=== PATIENT | male | born 1950 | race Caucasian/White ===

== ENCOUNTER 2017-11-04 19:35 | Emergency (ER) | payer OTHER, MEDICARE, SELFPAY ==
[2017-11-04 19:37] VITALS: BP 157/90; PULSE 64; RESP 16; TEMP 36.9; O2SAT 96; BMI 37.5
[2017-11-04] MEDS: oxyCODONE 5 MG Tablet 10 MG PO (20:38)
--- NOTE | 2017-11-04 20:50 | RAD_ITS ---
STUDY: X-RAY - RIGHT HAND REASON FOR EXAM: Male, 67 years old. Right thumb pain. TECHNIQUE: 3 view(s) of the hand. COMPARISON: None. FINDINGS: There is joint space narrowing of the radiocarpal articulation consistent with degenerative arthrosis. Normal distal radioulnar joint. Normal visualized carpal bones. Normal carpal articulations Normal carpometacarpal articulation of the thumb. Normal second through fifth carpometacarpal joints. Normal metacarpi. There is degenerative arthrosis of the metacarpophalangeal (MCP) joints. There is degenerative arthrosis of the interphalangeal joint of the thumb with articular joint space narrowing. Normal proximal and distal phalanges of the thumb. Normal metacarpophalangeal joints of the second through fifth fingers. There is mild articular joint space narrowing of the proximal and distal interphalangeal joints of the second through fifth fingers, but without erosive changes or periarticular soft tissue swelling. Normal phalanges of the second through fifth fingers. There is soft tissue swelling of the thumb. RAD/Hand Min 3 Views IMPRESSION: Degenerative joint disease of the hand and wrist, as described above. Electronically Signed: Otilia Adamson MD at 21:53 EDT Tel , Service support ,
[2017-11-04 21:12] LABS: Absolute Lymphocyte Count 2.63 X10^3/ul (0.83-4.51); Absolute Neutrophil Count 2.9 X10^3/uL (2.0-7.7); Basophil# 0.03 X10^3/uL; Basophil% 0.5 % (0-1); Eosinophil# 0.18 X10^3/uL; Eosinophils% 2.8 % (0-5); Hematocrit 44.3 % (40-54); Hemoglobin 14.9 g/dl (13.0-16.5); Lymphocyte # 2.63 X10^3/ul (4.0); Lymphocyte % 41.4 % (19-41); Mean Corp Hgb Conc 33.6 g/gl (32-36); Mean Corpuscular Hgb 29.2 pg (27.0-32.0); Mean Corpuscular Volume 86.9 fL (80-94); Mean Platelet Vol. 11.2 fl (6.2-12.0); Monocyte# 0.64 X10^3/uL; Monocyte% 10.1 % (0-10); Neutrophil # 2.88 X10^3/uL (2.7-7.7); Neutrophil % 45.2 % (47-70); Platelet Count 172 K/mm3 (150-450); RBC Distribution Width CV 12.8 % (11.6-14.6); RBC Distribution Width SD 41.2 fl (35.1-43.9); White Blood Count 6.4 K/mm3 (4.4-11.0)
[2017-11-04 21:17] LABS: POSITIVE COUNT NO; POSITIVE DIFFERENTIAL NO; POSITIVE MORPHOLOGY NO
[2017-11-04 21:31] LABS: Anion Gap 8 (5-15); BUN 19 mg/dL (7-18); BUN/Creat Ratio 21.1 RATIO (10-20); Calcium,Total 8.6 mg/dL (8.5-10.1); Chloride 110 mmol/L (98-107); EST Glomerular Filtration Rate 89 mL/min (>60); Est Glom Filt Rate - Afr Amer 108 mL/min (>60); Estimated Creatinine Clearance 79.65 ml/min; Glucose 98 mg/dL (74-106); Potassium 4.2 mmol/L (3.5-5.1); Sodium Level 141 mmol/L (136-145)
--- NOTE | 2017-11-04 22:16 | ED.DCSUM_ITS ---
- ER Visit Summary Date of Service: 11/04/17 Chief Complaint: [] Right thumb History of Present Illness: The patient is a 67 M [] complaining of significant right thumb pain and swelling. He reports he was recently diagnosed with a right ingrown thumbnail. He does have a abnormal morphology to his thumbs bilaterally with the nailbed pointing in a more up-and-down orientation than horizontal. He reports he was recently seen the [place] emergency department where they took a small corner of the nail off and placed him on Keflex for approximately 10 days. He reports this did not improve his symptoms at all and he is here with further discomfort. He denies fevers. Denies any obvious injury or break in the skin. Denies any discharge from the wound. No other complaints at this time. Physical Examination: [] Afebrile, vital signs stable. Slight swelling to the lateral aspect of the right nailbed without fluctuance. This may represent an early paronychia however the morphology of the thumb is abnormal. Patient is neurovascularly intact distally. He is able to flex at the DIP joint. There is no erythema or rash to the affected area. Remainder of exam is unremarkable. Test Results: [] ESR is pending at the time of this dictation. CBC and BMP are normal. X-rays of the hand with attention to the thumb show osteoarthritis without obvious pathology. Emergency Department Course and Treatment: [] Patient had the area evaluated. I did not feel that he was a good candidate for incision and drainage and nailbed repair in the emergency department. I discussed this extensively with him and his at the bedside. They are amenable to discharge on antibiotics, narcotic analgesia, referral to plastic surgery/hand specialist for definitive care. Provided with prescriptions for Bactrim DS, Keflex, oxycodone. Treatment Plan: [] Follow-up with local plastic surgeon/hand specialist. Disposition: [] Discharge, stable. Impression: [] Right thumb paronychia osteoarthritis This note was generated with [employer] dictation software. It may contain incorrect words, spelling, and punctuation that were not noted in review of the chart prior to signing ED Disposition - Plan for ED Patient: Disposition: Home or Assisted Living Chief Complaint: Wound Instructions: ED Fingernail Infec Prescriptions: Oxycodone [Oxyfast] 10 mg PO Q4H PRN PRN 5 Days #20 ml PRN Reason: Pain Sulfamethoxazole/Trimethoprim [Bactrim Ds Tablet] 1 ea PO BID #20 tab Cephalexin [Keflex] 500 mg PO 4X/DAY #40 cap Referrals: [facility] Doctor,Out of [Primary Care Provider] -
--- NOTE | 2017-11-04 22:20 | DCINST.ED_ITS ---
ED Disposition - Plan for ED Patient: Disposition: Home or Assisted Living Chief Complaint: Wound Instructions: ED Fingernail Infec Prescriptions: Oxycodone [Oxyfast] 10 mg PO Q4H PRN PRN 5 Days #20 ml PRN Reason: Pain Sulfamethoxazole/Trimethoprim [Bactrim Ds Tablet] 1 ea PO BID #20 tab Cephalexin [Keflex] 500 mg PO 4X/DAY #40 cap Referrals: [facility] Doctor,Out of [Primary Care Provider] -
[2017-11-04 22:41] VITALS: BP 165/118; PULSE 57; RESP 18; O2SAT 96
[2017-11-04 22:42] VITALS: BP 184/96
[2017-11-05 00:01] LABS: Erythrocyte Sedimentation Rate 4 mm/hr (0-20)
== END 2017-11-04 22:42 | disposition home or self-care (01) ==
PROVIDERS: Emergency Provider Emergency Medicine
DX: L03.011 Cellulitis of right finger (principal); M19.041 Primary osteoarthritis, right hand
CPT/HCPCS: 36415; 73130; 80048; 85025; 85652; 99283

== ENCOUNTER 2017-11-05 12:01 | Emergency (ER) | payer OTHER, MEDICARE, SELFPAY ==
[2017-11-05 12:02] VITALS: BP 186/91; PULSE 65; RESP 18; TEMP 36.6; O2SAT 98; BMI 36.9
[2017-11-05 12:21] VITALS: BP 193/88; PULSE 71; RESP 19; O2SAT 97
--- NOTE | 2017-11-05 12:34 | EKG12_ITS ---
Test Reason : CP Blood Pressure : / mmHG Vent. Rate : 069 BPM Atrial Rate : 069 BPM P-R Int : 172 ms QRS Dur : 096 ms QT Int : 420 ms P-R-T Axes : 011 -01 038 degrees QTc Int : 450 ms Normal sinus rhythm Normal ECG Confirmed by JERONIMO CAPONE MD ([id number]), brands editor TOYA SAAB ([id number]) on 11/07/2017 1:29:00 PM Referred By: Confirmed By:JERONIMO CAPONE MD
--- NOTE | 2017-11-05 12:54 | RAD_ITS ---
STUDY: X-RAY CHEST REASON FOR EXAM: Male, 67 years old. Chest pain TECHNIQUE: Portable frontal COMPARISON: None. FINDINGS: The lungs are clear and expanded. There is no demonstrated pleural abnormality. Normal size heart. Normal mediastinum and jorge. Normal visualized pulmonary arteries. Normal visualized aortic arch and descending thoracic aorta. Normal visualized thoracic spine. Normal visualized ribs, clavicles, and shoulders. There is no demonstrated abnormality of the visualized soft tissue structures of the upper abdomen. RAD/Chest 1 View (Portable) IMPRESSION: No acute cardiopulmonary process. Electronically Signed: Otilia Adamson MD at 13:09 EDT Tel , Service support ,
[2017-11-05] MEDS: Aspirin 81 MG TAB.CHEW 324 MG PO (12:59)
[2017-11-05] MEDS: 0.9% Normal Saline 1,000 ML 150 ML IV (12:59)
[2017-11-05 13:00] VITALS: O2SAT 98
[2017-11-05 13:00] LABS: Absolute Neutrophil Count 2.1 X10^3/uL (2.0-7.7); Basophil# 0.03 X10^3/uL; Basophil% 0.6 % (0-1); Eosinophil# 0.14 X10^3/uL; Eosinophils% 2.9 % (0-5); Hematocrit 46.4 % (40-54); Hemoglobin 15.6 g/dl (13.0-16.5); Lymphocyte % 45.3 % (19-41); Mean Corp Hgb Conc 33.6 g/gl (32-36); Mean Corpuscular Hgb 29.4 pg (27.0-32.0); Mean Corpuscular Volume 87.4 fL (80-94); Mean Platelet Vol. 11.4 fl (6.2-12.0); Monocyte# 0.44 X10^3/uL; Monocyte% 9.1 % (0-10); Neutrophil # 2.05 X10^3/uL (2.7-7.7); Neutrophil % 42.1 % (47-70); Platelet Count 179 K/mm3 (150-450); RBC Distribution Width CV 12.9 % (11.6-14.6); RBC Distribution Width SD 41.2 fl (35.1-43.9); Red Blood Count 5.31 M/mm3 (4.6-6.2); White Blood Count 4.9 K/mm3 (4.4-11.0)
[2017-11-05 13:07] LABS: POSITIVE COUNT NO; POSITIVE DIFFERENTIAL NO; POSITIVE MORPHOLOGY NO
[2017-11-05 13:20] LABS: AST(SGOT) 22 U/L (15-37); Alanine Aminotransfer ALT/SGPT 53 U/L (16-61); Albumin, Serum 4.2 g/dL (3.2-5.0); Alkaline Phosphatase 74 U/L (45-117); Bilirubin, Direct 0.14 mg/dL (0.00-0.30); Globulin 3.3 g/dL (2.2-4.2); Protein, Total 7.5 g/dL (6.4-8.2)
--- NOTE | 2017-11-05 13:20 | ED.DCSUM_ITS ---
- ER Visit Summary Date of Service: 11/05/17 Chief Complaint: [] Needs a different prescription for pain management History of Present Illness: The patient is a 67 M [] for over a month he has had a problem with his right thumb he was seen at multiple facilities referred to hand service he has not followed up yet he was seen yesterday in the emergency department at [facility] for the same refer to Dr. Greene indicates he has had x-rays of the hand has been on antibiotics he was given a prescription for liquid pain medicine pharmacy did not have that so was sent back to the emergency department a different prescription when he presented to triage he complained to the nurses that his blood pressure was elevated he went to be seen for that as well he has had no fever no cough he does complain that the pain to the thumb is quite bothersome to him he indicates he does not know why he has the thumb pain he did not suffer any direct trauma he is concerned that he may have had an ingrown nail the because all the above Does not have any history of, hypertension, SD PE DVT cardiovascular disorders is eating and drinking well, his chief complaint is still his thumb 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 The IP joint flexion is normal MCP joint flexion is normal hand function is normal wrist function is normal Test Results: [] Emergency Department Course and Treatment: [] His complaints is blood pressure is elevated etc. screening labs are obtained did in fact have an x-ray yesterday of the right hand that showed DJD his screening labs are all unremarkable as is the chest x-rays EKG shows a sinus rhythm nothing acute the patient's blood pressure is 160/80 on reevaluation he feels completely back to baseline he has no symptoms of any kind the thumb pain is actually markedly improved as well he feels well wants to go home, again he will follow-up Dr. dwyer B he is currently on antibiotic we will make sure he gets the oral pill form of the Percocet will return for change in symptoms he does understand the concept that he may in fact have hypertension is difficult to assess through visit to the emergency department when he is actively having pain and he should follow-up his family doctor for the hypertension as well he will do so Treatment Plan: [] Disposition: [] Home stable Impression: [] Recurrent right thumb pain etiology unclear, hypertension improved This note was generated with [employer] dictation software. It may contain incorrect words, spelling, and punctuation that were not noted in review of the chart prior to signing ED Disposition - Plan for ED Patient: Chief Complaint: Other, Pain/Inj Referrals: Care Physician,No Primary [Primary Care Provider] -
[2017-11-05 13:23] LABS: Anion Gap 7 (5-15); BUN 18 mg/dL (7-18); BUN/Creat Ratio 17.5 RATIO (10-20); Calcium,Total 8.9 mg/dL (8.5-10.1); Chloride 107 mmol/L (98-107); Creatinine, Serum 1.03 mg/dL (0.70-1.30); EST Glomerular Filtration Rate 77 mL/min (>60); Est Glom Filt Rate - Afr Amer 93 mL/min (>60); Estimated Creatinine Clearance 69.59 ml/min; Glucose 107 mg/dL (74-106); Lipase 103 U/L (73-393); Sodium Level 141 mmol/L (136-145)
[2017-11-05] MEDS: Ondansetron 4 MG/2 ML Vial IV (13:35)
[2017-11-05] MEDS: morphine 8 MG/ML Syringe IV (13:35)
--- NOTE | 2017-11-05 14:29 | ED.DEP ---
ED Disposition - Plan for ED Patient: Chief Complaint: Other, Pain/Inj Prescriptions: Oxycodone HCl/Acetaminophen [Percocet 5/325] 1 tab PO Q6H PRN PRN 3 Days #12 tab PRN Reason: Pain Referrals: Care Physician,No Primary [Primary Care Provider] -
--- NOTE | 2017-11-05 14:31 | ED.DEP ---
ED Disposition - Plan for ED Patient: Chief Complaint: Other, Pain/Inj Instructions: ED Hypertension New Begin Tx Prescriptions: Oxycodone HCl/Acetaminophen [Percocet 5/325] 1 tab PO Q6H PRN PRN 3 Days #12 tab PRN Reason: Pain Referrals: Care Physician,No Primary [Primary Care Provider] - Nathan Rodriguez DO [NON CLINICAL AFFILIATE] -
[2017-11-05 14:41] VITALS: BP 141/74; PULSE 56; RESP 12; O2SAT 95
== END 2017-11-05 15:07 | disposition home or self-care (01) ==
PROVIDERS: Emergency Provider Emergency Medicine
DX: M25.541 Pain in joints of right hand (principal); I10 Essential (primary) hypertension; M19.041 Primary osteoarthritis, right hand; Z79.899 Other long term (current) drug therapy
CPT/HCPCS: 71045; 80048; 80076; 83690; 84484; 85025; 93005; 96361; 96374; 96375; 99284; J7030; A4216; J2405

== ENCOUNTER 2018-09-03 09:06 | Day surgery (SDC) | payer OTHER, MEDICARE, SELFPAY ==
[2018-07-09 10:01] VITALS: BMI 36.9
[2018-08-27 09:48] VITALS: BMI 36.9
[2018-09-03 09:25] VITALS: BP 150/63; PULSE 58; RESP 16; TEMP 36.4; O2SAT 96; BMI 37.0
--- NOTE | 2018-09-03 10:10 | PCM.HP.BLA ---
Problem List (1) Abdominal discomfort, generalized Status: Acute History and Physical Date of Admission: 09/03/18 Intake Visit Reasons: needs cscope, poss egd - nausea, abd pain Chief Complaint: stomach issues worsening for 2 wks. Is patient in pain?: No Allergies No Known Allergies Allergy (Verified 07/09/18 09:59) Medications Aleve 440 mg PO BID 11/04/17 [History Confirmed 07/09/18] Desmopressin Acetate [Ddavp] 0.1 mg PO BID 11/04/17 [History Confirmed 07/09/18] Levothyroxine [Synthroid] 137 mcg PO DAILY 11/04/17 [History Confirmed 07/09/18] Testosterone [Androgel] 5 gm TD DAILY 11/04/17 [History Confirmed 07/09/18] amlodipine 10 mg tablet 5 mg PO DAILY #30 tab 07/03/18 [Rx Confirmed 07/09/18] gabapentin ER 600 mg tablet,extended release 24 hr 600 mg PO TID PRN tab 07/03/18 [History Confirmed 07/09/18] naproxen 250 mg tablet 250 mg PO BID-TID PRN 07/03/18 [History Confirmed 07/09/18] omeprazole 20 mg tablet,delayed release 20 mg PO DAILY #60 tab 07/09/18 [Rx Confirmed 07/09/18] PFSH Medical History Chronic pain (Chronic) Hypothyroidism (Acute) Surgical History History of back surgery (Acute) History of cranial surgery (Acute) History of knee replacement (Acute) History of orthopedic surgery (Acute) History of shoulder surgery (Acute) history of skin graph (Acute) Family History Father Heart disease Mother Diabetes Brother Diabetes Social History Smoking Status: Never smoker alcohol intake: current alcohol intake frequency: holidays/special occasions only substance use type: does not use what type of physical activity do you participate in: none HPI HPI HPI: SUNITA TOTH, is a 67 M who presents to the office today for nausea and screening colonoscopy. The patient reports he has had over 3 weeks of nausea and he does sometimes complain of left upper quadrant pain. He is on chronic ibuprofen with no PPI. The patient also reports he is due for screening colonoscopy. The patient has never had a colonoscopy in the past. He denies any blood in his stool or inadvertent weight loss. He has no family history of colon cancer. ROS General General: No weight change, appetite, fatigue, colon cancer, breast cancer or weakness HEENT HEENT: No difficulty swallowing, eye injury, eye surgery, swollen glands or hoarseness Endo Endocrine: No thyroid disease, diabetes mellitus, thyroid cancer, Hair loss, heat intolerance or cold intolerance Skin Skin: No rash or changing moles Breast Breast: No left breast lump, right breast lump, nipple discharge, breast pain, abnormal mammogram, abnormal US or breast enlargement Musc Musculoskeletal: Yes back problems; no arthritis, rheumatoid arthritis, gout or joint pain Cardio Cardiovascular: Yes high blood pressure; no murmur, pacemaker, heart disease, atrial fibrillation, heart attack, heart stent, palpitations, shortness of breat with exertion or chest pain Psych Psychiatric: No depression, anxiety or hearing voices Resp Respiratory: No shortness of breath, No sleep apnea, No cough, No COPD, No asthma, No emphysema, No wheezing Gastro Gastrointestinal: Yes nausea or vomiting, Yes abdominal pain, No diarrhea, No constipation, No blood in stool, No acid reflux, No hemorrhoids, No ulcers, No gallbladder problem, No black,tarry stools Francisco Hematologic: No blood thinners, No blood disorders, No bleeding, No anemia, No blood clots Neuro Neurologic: Yes tingling, Yes numbness, No system reviewed and no additional complaints, except as docu, No as per HPI, No abnormal walking, No abnormal hearing, No abnormal movements, No abnormal speech, No behavioral changes, No burning sensations, No confusion, No seizure-like activity, No unsteadiness, No dizziness, No localized weakness, No frequent falls, No headache(s), No lack of coordination, No loss of vision, No memory loss, No other visual disturbances, No radiating pain, No restless legs, No sensory deficit, No fainting, No tremor(s), No weakness, No other Exam Const General: cooperative Orientation: alert, oriented x3 Chest Breast Palpation: No nipple discharge Resp Effort & Inspection: normal respiratory effort Auscultation: clear to auscultation bilaterally Cardio Rate: regular rate Rhythm: regular rhythm Heart Sounds: no murmurs GI Inspection: non-distended Palpation: soft, nontender Assessment & Plan Problems 1. Screen for colon cancer Z12.11 2. Left upper quadrant pain R10.12 Plan The patient is due for screening colonoscopy. The patient is also having nausea and left upper quadrant pain. This is possibly due to gastritis. I will start him on a PPI and perform an EGD at the same time as colonoscopy. I explained endoscopy in detail to the patient. I explained the risks including but not limited to stroke or heart attack with anesthesia, perforation of the GI tract, bleeding, infection. I explained that any of these could necessitate further emergency surgery. The patient understands and all questions were answered sufficiently. The patient wishes to proceed with procedure. Shar Jamse MD Pager: [place] [phone] Office: Addendum I saw the patient today and nothing is changed since his last visit. Plan for screening colonoscopy and EGD for epigastric pain. Patient reports that his epigastric pain has improved slightly with PPIs. Shar James MD Pager: [place] [phone] Office:
--- NOTE | 2018-09-03 11:34 | OP.ENDO_ITS ---
09/03/2018 Fay Chaney MD [address] [place] [address] [place] [address] Re : Upper GI endoscopy procedure for Huber Booker Dear Dr. Chaney This procedure was performed on Monday, September 03, 2018. My impressions and recommendations are as follows: Impressions : - Normal esophagus. - Normal stomach. - Normal examined duodenum. - No specimens collected. Recommendations : - Discharge patient to home. - Resume previous diet. - Continue present medications. My findings are described in the full procedure note, which is enclosed. If I can be of further assistance, please feel free to contact me at Doctor phone number(s): , Work: . Sincerely, Shar James MD 09/03/2018 11:34:09 AM This report has been signed electronically.
--- NOTE | 2018-09-03 11:35 | OP.ENDO_ITS ---
09/03/2018 Fay Chaney MD [address] [place] [address] [place] [address] Re : Colonoscopy procedure for Huber Booker Dear Dr. Chaney This procedure was performed on Monday, September 03, 2018. My impressions and recommendations are as follows: Impressions : - The entire examined colon is normal on direct and retroflexion views. - No specimens collected. Recommendations : - Discharge patient to home. - Resume previous diet. - Continue present medications. - Repeat colonoscopy in 10 years for screening purposes. My findings are described in the full procedure note, which is enclosed. If I can be of further assistance, please feel free to contact me at Doctor phone number(s): , Work: . Sincerely, Shar James MD 09/03/2018 11:35:23 AM This report has been signed electronically.
[2018-09-03 11:36] VITALS: BP 117/58; BP 150/63; PULSE 59; RESP 16; TEMP 36.3; O2SAT 98
[2018-09-03 11:41] VITALS: BP 117/63; BP 150/63; PULSE 61; RESP 16; O2SAT 99
[2018-09-03 11:46] VITALS: BP 121/66; BP 150/63; PULSE 58; RESP 16; O2SAT 96
[2018-09-03 11:51] VITALS: BP 125/67; BP 150/63; PULSE 57; RESP 16; TEMP 36.3; O2SAT 100
[2018-09-03 12:05] VITALS: BP 150/63
== END 2018-09-03 12:12 | disposition home or self-care (01) ==
LOC: EN 09:07 → AC 09:09
PROVIDERS: Family Provider Internal Medicine; PCP Internal Medicine; Referring Provider Surgery; Visit Provider Surgery
PROC: 0DJD8ZZ Inspection of Lower Intestinal Tract, Via Natural or Artificial Opening Endoscopic (ICD-10-PCS; CPT 45378; principal; 2018-09-03 10:55)
DX: Z12.11 Encounter for screening for malignant neoplasm of colon (principal); R10.13 Epigastric pain; G89.29 Other chronic pain; E03.9 Hypothyroidism, unspecified; Z79.899 Other long term (current) drug therapy
CPT/HCPCS: 43235; 45378; J7120

== ENCOUNTER 2018-09-21 09:30 | Outpatient (RCR) | payer OTHER, MEDICARE, SELFPAY | END 2018-09-23 23:59 | disposition home or self-care (01) | LOC: NS 09:30 | PROVIDERS: Family Provider Internal Medicine; PCP Internal Medicine; Visit Provider Internal Medicine | DX: E66.9 Obesity, unspecified (principal); Z68.36 Body mass index [BMI] 36.0-36.9, adult; Z71.3 Dietary counseling and surveillance | CPT/HCPCS: 97802; 97803 ==

== ENCOUNTER → 2018-10-17 | Outpatient (CLI) | payer OTHER, MEDICARE, SELFPAY ==
[2018-10-17 10:29] VITALS: BMI 35.2
--- NOTE | 2018-10-17 11:20 | RAD_ITS ---
STUDY: X-RAY - RIGHT SHOULDER REASON FOR EXAM: Pain for 2 weeks status post golfing. TECHNIQUE: 4 view(s) of the shoulder. COMPARISON: None. FINDINGS: Normal glenohumeral articulation. There is mild acromioclavicular arthrosis. Normal acromion. Normal humeral head and visualized proximal humerus. There is a possible intra-articular body in the bicipital tendon sheath. Normal visualized pulmonary apex. RAD/Shoulder min 2 Views IMPRESSION: Mild acromioclavicular arthrosis. Possible intra-articular body in the bicipital tendon sheath. Electronically Signed: Velasquez Gamble MD at 12:50 EDT Tel , Service support ,
== END | disposition home or self-care (01) ==
PROVIDERS: Family Provider Internal Medicine; PCP Internal Medicine; Referring Provider Nurse Practitioner Family; Visit Provider Nurse Practitioner Family
DX: M75.81 Other shoulder lesions, right shoulder (principal)
CPT/HCPCS: 73030

== ENCOUNTER 2018-10-19 10:00 | Outpatient (RCR) | payer OTHER, MEDICARE, SELFPAY | END 2018-10-23 23:59 | LOC: NS 10:00 | PROVIDERS: Family Provider Internal Medicine; PCP Internal Medicine; Visit Provider Internal Medicine | DX: E66.9 Obesity, unspecified (principal); Z68.36 Body mass index [BMI] 36.0-36.9, adult; Z71.3 Dietary counseling and surveillance | CPT/HCPCS: 97803 ==

== ENCOUNTER 2018-11-09 09:33 | Outpatient (RCR) | payer OTHER, MEDICARE, SELFPAY ==
[2018-10-24 01:34] VITALS: BMI 37.0
== END 2018-11-23 23:59 ==
LOC: NS 09:33
PROVIDERS: Family Provider Internal Medicine; PCP Internal Medicine; Visit Provider Internal Medicine
DX: E66.9 Obesity, unspecified (principal); Z68.36 Body mass index [BMI] 36.0-36.9, adult; Z71.3 Dietary counseling and surveillance
CPT/HCPCS: 97803

== ENCOUNTER 2018-12-07 10:04 | Outpatient (RCR) | payer OTHER, MEDICARE, SELFPAY ==
[2018-10-24 01:34] VITALS: BMI 37.0
[2018-12-03 10:42] VITALS: BMI 37.0
== END 2018-12-23 23:59 ==
LOC: NS 10:04
PROVIDERS: Family Provider Internal Medicine; PCP Internal Medicine; Visit Provider Internal Medicine
DX: E66.9 Obesity, unspecified (principal); Z68.36 Body mass index [BMI] 36.0-36.9, adult; Z71.3 Dietary counseling and surveillance
CPT/HCPCS: 97803

== ENCOUNTER 2019-01-11 10:10 | Outpatient (RCR) | payer OTHER, MEDICARE, SELFPAY ==
[2018-12-03 10:42] VITALS: BMI 37.0
== END 2019-01-11 23:59 | disposition home or self-care (01) ==
LOC: NS 10:10
PROVIDERS: Family Provider Internal Medicine; PCP Internal Medicine; Visit Provider Internal Medicine
DX: E66.9 Obesity, unspecified (principal); Z68.36 Body mass index [BMI] 36.0-36.9, adult; Z71.3 Dietary counseling and surveillance
CPT/HCPCS: 97803

== ENCOUNTER → 2019-01-14 | Outpatient (CLI) | payer OTHER, MEDICARE, SELFPAY ==
[2019-01-14 12:20] VITALS: BMI 31.5
--- NOTE | 2019-01-14 12:33 | RAD_ITS ---
STUDY: X-RAY - RIGHT ANKLE REASON FOR EXAM: Fall/twisting injury yesterday. TECHNIQUE: 3 view(s) of the ankle. COMPARISON: None. FINDINGS: Normal visualized distal tibia and fibula. Normal medial and lateral malleoli. Normal tibiotalar articulation and ankle mortise. Normal visualized talus and calcaneus. The visualized subtalar, talonavicular, calcaneocuboid and tarsal articulations are normal. The soft tissue structures are unremarkable. RAD/Ankle min 3 Views IMPRESSION: Normal x-ray examination of the right ankle. Electronically Signed: Velasquez Gamble MD at 13:21 EDT Tel , Service support ,
--- NOTE | 2019-01-14 12:33 | RAD_ITS ---
STUDY: X-RAY - RIGHT TIBIA AND FIBULA REASON FOR EXAM: Fall/twisting injury yesterday. TECHNIQUE: 2 view(s) of the tibia and fibula were obtained. COMPARISON: None. FINDINGS: Normal visualized tibia. Normal visualized fibula. There are small soft tissue calcifications at the posterior medial aspect of the tibial diaphysis. RAD/Tibia & Fibula 2 Views IMPRESSION: Small soft tissue calcifications. No demonstrated fracture. Electronically Signed: Velasquez Gamble MD at 13:21 EDT Tel , Service support ,
== END | disposition home or self-care (01) ==
LOC: HPRAD 12:31
PROVIDERS: Family Provider Internal Medicine; PCP Internal Medicine; Referring Provider Physician Assistant Surgical; Visit Provider Physician Assistant Surgical
DX: S90.01XA Contusion of right ankle, initial encounter (principal)
CPT/HCPCS: 73590; 73610

== ENCOUNTER → 2019-03-06 10:48 | Outpatient (CLI) | payer OTHER, MEDICARE, SELFPAY ==
[2019-03-04 10:08] VITALS: BMI 31.5
[2019-03-06 12:14] LABS: Absolute Lymphocyte Count 2.01 X10^3/uL (0.83-4.51); Absolute Neutrophil Count 2.4 X10^3/uL (2.0-7.7); Basophil# 0.05 X10^3/uL; Eosinophil# 0.12 X10^3/uL; Eosinophils% 2.4 % (0-5); Hematocrit 44.9 % (40-54); Hemoglobin 14.6 g/dL (13.0-16.5); Lymphocyte # 2.01 X10^3/ul (4.0); Lymphocyte % 40.4 % (19-41); Mean Corp Hgb Conc 32.5 g/dL (32-36); Mean Corpuscular Hgb 28.7 pg (27.0-32.0); Mean Corpuscular Volume 88.4 fL (80-94); Mean Platelet Vol. 11.5 fl (6.2-12.0); Monocyte# 0.41 X10^3/uL; Monocyte% 8.2 % (0-10); NRBC Flagged by Analyzer 0 % (0-5); Neutrophil # 2.38 X10^3/uL (2.7-7.7); Neutrophil % 47.8 % (47-70); Platelet Count 211 K/mm3 (150-450); RBC Distribution Width CV 12.6 % (11.6-14.6); RBC Distribution Width SD 41.1 fl (35.1-43.9); Red Blood Count 5.08 M/mm3 (4.6-6.2)
[2019-03-06 12:37] LABS: ALB/GLOB Ratio 1.3 RATIO (0.9-2.4); AST(SGOT) 14 U/L (15-37); Alanine Aminotransfer ALT/SGPT 32 U/L (16-61); Albumin, Serum 4.1 g/dL (3.2-5.0); Alkaline Phosphatase 65 U/L (45-117); Anion Gap 3 (5-15); BUN 21 mg/dL (7-18); BUN/Creat Ratio 24.4 RATIO (10-20); Chloride 107 mmol/L (98-107); Cholesterol 204 mg/dL (200); Creatinine, Serum 0.86 mg/dL (0.70-1.30); EST Glomerular Filtration Rate 94 mL/min (>60); Est Glom Filt Rate - Afr Amer 114 mL/min (>60); Globulin 3.1 g/dL (2.2-4.2); Glucose 97 mg/dL (74-106); High Density Lipoprotein 61 mg/dL; Potassium 4.8 mmol/L (3.5-5.1); Protein, Total 7.2 g/dL (6.4-8.2); Sodium Level 138 mmol/L (136-145); Triglycerides 106 mg/dL; Very Low Density Lipoprotein 21 mg/dL (5-40)
== END ==
PROVIDERS: Family Provider Internal Medicine; PCP Internal Medicine; Visit Provider Internal Medicine
DX: I10 Essential (primary) hypertension (principal)
CPT/HCPCS: 36415; 80053; 80061; 85025

== ENCOUNTER 2019-05-05 11:45 | Emergency (ER) | payer OTHER, MEDICARE, SELFPAY ==
[2019-03-20 14:00] VITALS: BMI 31.5
[2019-05-05 11:46] VITALS: BP 161/102; PULSE 67; RESP 17; TEMP 36.7; O2SAT 98; BMI 31.5
--- NOTE | 2019-05-05 12:04 | ED.VISSUMM ---
- ER Visit Summary Date of Service: 05/05/19 Chief Complaint: Cat bites History of Present Illness: The patient is a 68 M who presents the emergency department with cat bites to his bilateral hands. He was attempting to get his cat back indoors and the cat bit him and scratched him numerous times. Unknown last tetanus. Physical Examination: Afebrile vital signs stable There are numerous puncture wounds to the dorsum of the right and left hand and fingers. No current evidence of infection. Test Results: Bilateral hand films were obtained. I do not see any tooth fragments. Emergency Department Course and Treatment: Tetanus was updated with Adacel. Augmentin will is given and will be prescribed. Local wound care was administered. It was stressed to the patient that he is at high risk for infection and should return if he has concerns Impression: 1. Bilateral hand cat bites 2. Tetanus update This note was generated with [employer] dictation software. It may contain incorrect words, spelling, and punctuation that were not noted in review of the chart prior to signing ED Disposition - Plan for ED Patient: Disposition: Home or Assisted Living Instructions: Cat Bite Prescriptions: Amox/Clavulanate Tablet [Augmentin Tablet] 875 mg PO Q12H #14 tab Prescription Printed Referrals: Fay Chaney MD [Primary Care Provider] - As Needed
--- NOTE | 2019-05-05 12:07 | RAD_ITS ---
STUDY: X-RAY - LEFT HAND REASON FOR EXAM: Male, 68 years old. Multiple CAT scratches involving the hands TECHNIQUE: 3 view(s) of the hand. COMPARISON: None. FINDINGS: Normal radiocarpal articulation. Normal distal radioulnar joint. Normal visualized carpal bones. Normal carpal articulations Normal carpometacarpal articulation of the thumb. Normal second through fifth carpometacarpal joints. Normal metacarpi. Normal metacarpophalangeal joint of the thumb. Normal interphalangeal joint of the thumb. Normal proximal and distal phalanges of the thumb. Normal metacarpophalangeal joints of the second through fifth fingers. Normal proximal and distal interphalangeal joints of the second through fifth fingers. Normal phalanges of the second through fifth fingers. There is soft tissue swelling diffusely with subcutaneous air along the dorsal surface. RAD/Hand Min 3 Views IMPRESSION: Soft tissue injury/swelling with dorsal and subcutaneous emphysema. No destructive bony process. Electronically Signed: Cassius Vincent MD (Brooks) at 12:19 EST , Service support ,
--- NOTE | 2019-05-05 12:07 | RAD_ITS ---
STUDY: X-RAY - RIGHT HAND REASON FOR EXAM: Male, 68 years old. Multiple CAT scratches involving the hands TECHNIQUE: 3 view(s) of the hand. COMPARISON: None. FINDINGS: Normal radiocarpal articulation. Normal distal radioulnar joint. Normal visualized carpal bones. Normal carpal articulations Normal carpometacarpal articulation of the thumb. Normal second through fifth carpometacarpal joints. Normal metacarpi. Normal metacarpophalangeal joint of the thumb. Normal interphalangeal joint of the thumb. Normal proximal and distal phalanges of the thumb. Normal metacarpophalangeal joints of the second through fifth fingers. Normal proximal and distal interphalangeal joints of the second through fifth fingers. Normal phalanges of the second through fifth fingers. Diffuse soft tissue swelling. RAD/Hand Min 3 Views IMPRESSION: Soft tissue swelling without destructive bony process. Electronically Signed: Cassius Vincent MD (Brooks) at 12:21 EST , Service support ,
[2019-05-05] MEDS: Diphth,Pertuss(Acell),Tet Vac 0.5 ML Vial IM (12:11)
[2019-05-05] MEDS: Amox/Clavulanate 875 MG Tablet PO (12:11)
[2019-05-05 12:40] VITALS: BP 156/76; PULSE 60; RESP 18; O2SAT 97
== END 2019-05-05 12:40 | disposition home or self-care (01) ==
LOC: ED 12:08
PROVIDERS: Emergency Provider Emergency Medicine; Family Provider Internal Medicine; PCP Internal Medicine
DX: S60.572A Other superficial bite of hand of left hand, initial encounter (principal); S60.571A Other superficial bite of hand of right hand, initial encounter; Z23 Encounter for immunization; W55.01XA Bitten by cat, initial encounter; Y93.9 Activity, unspecified; Y92.9 Unspecified place or not applicable; K21.9 Gastro-esophageal reflux disease without esophagitis; I10 Essential (primary) hypertension; E03.9 Hypothyroidism, unspecified; Z79.899 Other long term (current) drug therapy
CPT/HCPCS: 73130; 90471; 90715; 99283

== ENCOUNTER → 2019-05-10 10:12 | Outpatient (CLI) | payer OTHER, MEDICARE, SELFPAY ==
[2019-05-10 09:31] VITALS: BMI 31.5
[2019-05-10 12:31] LABS: Anion Gap 8 (5-15); BUN 23 mg/dL (7-18); BUN/Creat Ratio 23.9 RATIO (10-20); Calcium,Total 8.8 mg/dL (8.5-10.1); Chloride 105 mmol/L (98-107); Creatinine, Serum 0.96 mg/dL (0.70-1.30); EST Glomerular Filtration Rate 82 mL/min (>60); Est Glom Filt Rate - Afr Amer 100 mL/min (>60); Glucose 91 mg/dL (74-106); Magnesium 2.6 mg/dL (1.6-2.6); Potassium 4.7 mmol/L (3.5-5.1); Sodium Level 140 mmol/L (136-145)
== END ==
PROVIDERS: Family Provider Internal Medicine; PCP Internal Medicine; Visit Provider Nurse Practitioner Family
DX: R25.2 Cramp and spasm (principal)
CPT/HCPCS: 36415; 80048; 83735

== ENCOUNTER → 2019-05-27 10:08 | Outpatient (CLI) | payer OTHER, MEDICARE, SELFPAY ==
[2019-05-27 09:49] VITALS: BMI 31.5
[2019-05-27 12:39] LABS: Absolute Lymphocyte Count 1.94 X10^3/uL (0.83-4.51); Basophil# 0.05 X10^3/uL; Basophil% 0.9 % (0-1); Eosinophil# 0.12 X10^3/uL; Eosinophils% 2.1 % (0-5); Hematocrit 46.2 % (40-54); Hemoglobin 15.2 g/dL (13.0-16.5); Lymphocyte # 1.94 X10^3/ul (4.0); Lymphocyte % 34.5 % (19-41); Mean Corp Hgb Conc 32.9 g/dL (32-36); Mean Corpuscular Hgb 29.8 pg (27.0-32.0); Mean Corpuscular Volume 90.6 fL (80-94); Mean Platelet Vol. 11.4 fl (6.2-12.0); Monocyte# 0.51 X10^3/uL; Monocyte% 9.1 % (0-10); NRBC Flagged by Analyzer 0 % (0-5); Neutrophil # 2.99 X10^3/uL (2.7-7.7); Platelet Count 217 K/mm3 (150-450); RBC Distribution Width CV 13.6 % (11.6-14.6); RBC Distribution Width SD 45.9 fl (35.1-43.9); White Blood Count 5.6 K/mm3 (4.4-11.0)
== END ==
PROVIDERS: Family Provider Internal Medicine; PCP Internal Medicine; Visit Provider Internal Medicine
DX: K52.9 Noninfective gastroenteritis and colitis, unspecified (principal)
CPT/HCPCS: 36415; 85025

== ENCOUNTER → 2019-08-27 09:54 | Outpatient (CLI) | payer OTHER, MEDICARE, SELFPAY ==
[2019-08-27 09:03] VITALS: BMI 31.5
--- NOTE | 2019-08-27 09:58 | VDLE_ITS ---
Reason For Study: pain RIGHT LEFT GSV is normal. CFV is compressible, spontaneous, phasic, CFV is compressible, spontaneous, phasic, competent, and demonstrates normal competent and demonstrates normal augmentation. augmentation. FV is compressible, spontaneous, phasic, competent and demonstrates normal augmentation. POP V is compressible, spontaneous, phasic, competent and demonstrates normal augmentation. T/P Trunk is compressible. PTV is compressible. RT PerV is compressible. Procedure Exam performed in department. The exam was diagnostic. A preliminary report was called and/or faxed to Jose Raul Seaman. Interpretation Summary Deep veins of the right lower extremity are patent and compressible segmentally. There is no evidence of right lower extremity deep vein thrombosis. Valvular competence appears intact within the proximal deep venous system on the right . The right great saphenous vein appears patent and compressible segmentally. Ordering Physician: Jose Raul Seaman Performed By: Ki Cotter RVT
== END ==
PROVIDERS: PCP Internal Medicine; Referring Provider Nurse Practitioner Family; Visit Provider Nurse Practitioner Family
DX: M79.661 Pain in right lower leg (principal)
CPT/HCPCS: 93971

== ENCOUNTER → 2019-09-02 14:15 | Outpatient (CLI) | payer OTHER, MEDICARE, SELFPAY ==
[2019-09-02 13:32] VITALS: BMI 31.5
--- NOTE | 2019-09-02 14:20 | RAD_ITS ---
STUDY: X-RAY - RIGHT TIBIA AND FIBULA REASON FOR EXAM: Male, 68 years old. SHARP SHOOTING PAINS IN RIGHT LOWER LEG, DISTAL 1/2 AND LATERALLY. PATIENT STATES HE BUMPED HIS RIGHT LEG ABOUT 3 WEEKS AGO INTO SOMETHING HARD AND HAS HAD PAIN SINCE THEN. 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 TECHNIQUE: 2 view(s) of the tibia and fibula were obtained. COMPARISON: None. FINDINGS: Normal visualized tibia. Normal visualized fibula. There is no demonstrated acute fracture. The soft tissue structures are unremarkable. RAD/Tibia & Fibula 2 Views IMPRESSION: Normal x-ray examination of the tibia and fibula. Electronically Signed: Tarah Harris MD at 0:54 EDT , Service support ,
== END ==
PROVIDERS: PCP Internal Medicine; Referring Provider Internal Medicine; Visit Provider Internal Medicine
DX: M79.604 Pain in right leg (principal)
CPT/HCPCS: 73590

== ENCOUNTER 2020-01-31 21:08 | Inpatient (IN) | payer OTHER, MEDICARE, SELFPAY ==
[2020-01-28 09:41] VITALS: BMI 31.5
[2020-01-31 21:09] VITALS: BP 76/51; PULSE 64; RESP 18; TEMP 36.4; O2SAT 97; BMI 36.1
[2020-01-31 21:15] VITALS: BP 85/62; PULSE 58; RESP 16; O2SAT 98
--- NOTE | 2020-01-31 21:18 | EKG12_ITS ---
Test Reason : REPEAT Blood Pressure : / mmHG Vent. Rate : 068 BPM Atrial Rate : 079 BPM P-R Int : 208 ms QRS Dur : 086 ms QT Int : 462 ms P-R-T Axes : 030 036 030 degrees QTc Int : 491 ms Sinus rhythm with marked sinus arrhythmia Prolonged QT Abnormal ECG Confirmed by KATHY CHATMAN, JC ([id number]), editorial cartoonist GIRISH FRIEND ([id number]) on 02/03/2020 8:56:52 AM Referred By: Delio Benítez Confirmed By:JC CHAVEZ MD
[2020-01-31] MEDS: 0.9% Normal Saline 1,000 ML 1000 ML IV ×2 (21:20→23:16)
--- NOTE | 2020-01-31 21:22 | ED.DCSUM_ITS ---
History of Present Illness Chief Complaint: Allergic Reaction Detail of Chief Complaint: Vomiting, hypotension, depressed level of consciousness Informant: Patient, Significant Other Onset: Today - Today the vomiting started and lasted for 5 continuous minutes per . thinks it is due to the Flexeril pill he took for muscle cramps in his calf. Context: Sudden Onset Timing: Continuous Quality: Also intermittent chest pain for 1 month. Chest pain is exertional. Location: Mid chest Current Severity: - - None Maximum Severity: Moderate Worsened by: Exertion Relieved by: Rest Associated Symptoms: Nausea and shortness of breath Narrative: Patient is a 69-year-old male with history of hypertension, back problems and cramps in his calf. He was prescribed Flexeril. He is also on gabapentin for his chronic back pain. He had episode of vomiting for 5 continuous minutes according the . He is not very alert at this time. This is probably due to his hypotension with a blood pressure 76/51. Emesis was nonbloody. He has not noted black or maroon stool. He denies fever chills. He denies visual, ocular auditory symptoms. He denies paresthesia or anesthesia. History is limited. Prior similar symptoms: No Recent Illness/Hospitalization: No - Past Medical History (1) Chronic pain Status: Chronic (2) GERD (gastroesophageal reflux disease) Status: Chronic (3) History of prolactinoma Status: Chronic (4) Hypertension Status: Chronic (5) Obesity (BMI 30-39.9) Status: Chronic Past Medical History - Allergies and Home Meds Allergies/Adverse Reactions: Allergies No Known Allergies Allergy (Verified 01/31/20 21:17) Primary Care Physician: Fay Chaney MD [Primary Care Provider] - Prior records reviewed: Yes Surgical History: - - Right leg surgery with skin graft Lives: Spouse/ Significant Other Smoking Status: Former smoker Alcohol: None Drugs: None Review of Systems General: Reports: Malaise. Denies: Chills, Fever, Subjective, Sweats Eyes: Reports: Visual changes - bilaterally ENT: Denies: Bilateral ear pain, Rhinorrhea, Sore throat Cardiovascular: Denies: Chest pain, Palpitations, Heart racing Respiratory: Reports: Dyspnea, Dyspnea on exertion. Denies: Orthopnea Gastrointestinal: Reports: Abdominal pain, Nausea. Denies: Vomiting, Diarrhea, Constipation, Melena, Hematochezia Genitourinary: Denies: Dysuria, Hematuria Musculoskeletal: Reports: Back pain Skin: Denies: Rash Neurological: Reports: Weakness. Denies: Headache Hematologic: Denies: Easy bruising, Easy bleeding Allergy: Denies: Uticaria, Swelling of the mouth, Swelling of the tongue Physical Exam Vital Signs/Narrative: Vital Signs Temp Pulse Resp BP Pulse Ox 01/31/20 21:09 97.6 F L 64 18 76/51 L 97 Inital Vital Signs reviewed: Yes General: Well nourished, Well developed, Obese, No Acute Distress Head: Normocephalic, Atraumatic Eyes: Perrl, EOMI. Negative for: Pale conjunctiva, Scleral icterus ENT: No rhinorrhea, TM's clear, Dry mucous membranes, Sinus tenderness Neck: Supple, Nontender, No JVD Cardiovascular: Regular rate, Regular rhythm, No murmurs, Normal S1, Normal S2 Respiratory: No distress, CTA bilaterally, Chest nontender Abdomen: Soft, Nontender, Nondistended, Normal bowel sounds, No masses. Negative for: Hepatomegaly, Splenomegaly, Mass, Pulsatile mass, Ventral hernia, Umbilical hernia, Rovsig's sign Back: Nontender, Normal Inspection Extremities: No edema. Negative for: Nontender Skin: Normal color, No rash Neurological: Oriented x3. Negative for: Alert, Cranial nerves II-XII grossly intact, Normal Strength, Normal Sensation, Normal DTR, Normal Gait Psychological: Normal affect Diagnostic/Tx/Re-eval - EKG Initial EKG Interpretation: Sinus Bradycardia - Sinus bradycardia with ventricular rate of 56. AZ interval 192 ms. QRS duration 86 ms. QT duration 432 ms. [place] is normal. Other than the sinus bradycardia no abnormality noted. Follow-up EKG Interpretation: Sinus Rhythm - Anus rhythm ventricular rate 68. AZ interval 208 ms. QRS duration 86 ms. QT duration 462 ms with a QTC of 491 ms, which is prolonged. [place] is normal. There are premature atrial beats noted. - Medical Decision Making EKG was obtained to evaluate for cardiac ischemia. This may represent a vasovagal episode. He will receive a fluid bolus. Appropriate work-up was undertaken to evaluate for anemia, electrolyte abnormality, cardiac ischemia, GI bleed etc. Because patient remained hypotensive Mckeon was placed after second liter of normal saline to assess I's and O's to determine if this is due to hypovolemia versus other cause. EKG reveals no acute ischemic changes. Tox screen was obtained as well as alcohol level. Tox ring was positive for cannabis. His nurse Maggy informing that he took 2 Flexeril. This is the first time is taken Flexeril. Would not expect this to cause his hypotension. There was a period where he was not responsive. He did not have a startle response; however, when I move my finger towards his eye he did blink. He remained still and still had no startle response. Suspect there is an affective component to his presentation. This would not explain the initial hypotension and PACs/dysrhythmia. - Critical Care Time Critical care time (excluding procedures): 30-74 minutes - 32 minutes, Discussing w/Patient &/or Family/President, Discussing w/Consultants, Arranging Admission or Transfer ED Disposition - Plan for ED Patient: Disposition: Home or Assisted Living Diagnosis: Hypotension, Sinus bradycardia by electrocardiogram, Exertional angina, Altered mental status, Adverse reaction to drug Referrals: Fay Chaney MD [Primary Care Provider] -
[2020-01-31 21:28] LABS: Absolute Lymphocyte Count 1.72 X10^3/uL (0.83-4.51); Absolute Neutrophil Count 6.2 X10^3/uL (2.0-7.7); Basophil# 0.03 X10^3/uL; Basophil% 0.3 % (0-1); Eosinophil# 0.04 X10^3/uL; Eosinophils% 0.5 % (0-5); Hematocrit 44.7 % (40-54); Hemoglobin 14.9 g/dL (13.0-16.5); Lymphocyte # 1.72 X10^3/ul (4.0); Lymphocyte % 19.7 % (19-41); Mean Corp Hgb Conc 33.3 g/dL (32-36); Mean Corpuscular Hgb 29.7 pg (27.0-32.0); Mean Corpuscular Volume 89.2 fL (80-94); Mean Platelet Vol. 11.3 fl (6.2-12.0); NRBC Flagged by Analyzer 0 % (0-5); Neutrophil # 6.21 X10^3/uL (2.7-7.7); Platelet Count 212 K/mm3 (150-450); RBC Distribution Width CV 12.4 % (11.6-14.6); RBC Distribution Width SD 40.3 fl (35.1-43.9); Red Blood Count 5.01 M/mm3 (4.6-6.2); White Blood Count 8.7 K/mm3 (4.4-11.0)
[2020-01-31 21:37] LABS: International Normalized Ratio 1.2; Partial Thromboplast Time 22.8 Seconds (24.1-36.2); Prothrombin Time (Protime)PT. 14.4 SECONDS (11.7-14.9)
--- NOTE | 2020-01-31 21:37 | RAD_ITS ---
STUDY: X-RAY CHEST REASON FOR EXAM: Male, 69 years old. pt took flexeril about 1600. feeling weak, sob, ambulated with pivot for squad. concerned for allergic reaction TECHNIQUE: 1 view COMPARISON: Prior chest radiograph 11/05/2017 FINDINGS: The lungs are clear and expanded. There is no demonstrated pleural abnormality. Normal size heart. Normal mediastinum and jorge. Normal visualized pulmonary arteries. Normal visualized aortic arch and descending thoracic aorta. Normal visualized thoracic spine. Normal visualized ribs, clavicles, and shoulders. There is no demonstrated abnormality of the visualized soft tissue structures of the upper abdomen. RAD/Chest 1 View (Portable) IMPRESSION: No acute cardiopulmonary findings or changes. Negative for new infiltrates, consolidation, cardiomegaly or pleural effusion. Normal cardiac size. Electronically Signed: Pratibha Dorado MD at 22:00 EDT , Service support ,
[2020-01-31 22:04] VITALS: BP 80/43; PULSE 64; RESP 18; O2SAT 98
[2020-01-31] MEDS: 0.9% Normal Saline 1,000 ML 999 ML IV (22:06)
--- NOTE | 2020-01-31 22:08 | EKG12_ITS ---
Test Reason : ALT MS Blood Pressure : / mmHG Vent. Rate : 056 BPM Atrial Rate : 056 BPM P-R Int : 192 ms QRS Dur : 086 ms QT Int : 432 ms P-R-T Axes : 027 030 025 degrees QTc Int : 416 ms Sinus bradycardia Otherwise normal ECG Confirmed by KATHY CHATMAN, JC ([id number]), assignment editor GIRISH FRIEND ([id number]) on 02/04/2020 10:46:52 AM Referred By: Delio Benítez Confirmed By:JC CHAVEZ MD
[2020-01-31 22:11] VITALS: BP 102/75; PULSE 70; RESP 16; O2SAT 98
[2020-01-31 22:11] LABS: ALB/GLOB Ratio 1.4 RATIO (0.9-2.4); AST(SGOT) 19 U/L (15-37); Alanine Aminotransfer ALT/SGPT 41 U/L (16-61); Albumin, Serum 4.3 g/dL (3.2-5.0); Alkaline Phosphatase 64 U/L (45-117); Anion Gap 4 (5-15); BUN 25 mg/dL (7-18); BUN/Creat Ratio 16.1 RATIO (10-20); Calcium,Total 8.6 mg/dL (8.5-10.1); Chloride 106 mmol/L (98-107); Creatinine, Serum 1.55 mg/dL (0.70-1.30); EST Glomerular Filtration Rate 47 mL/min (>60); Est Glom Filt Rate - Afr Amer 57 mL/min (>60); Estimated Creatinine Clearance 44.98 ml/min; Glucose 114 mg/dL (74-106); Potassium 4.9 mmol/L (3.5-5.1); Protein, Total 7.3 g/dL (6.4-8.2); Sodium Level 137 mmol/L (136-145)
[2020-01-31 22:20] LABS: Lactic Acid 1.4 mmol/L (0.4-1.9)
[2020-01-31 23:20] VITALS: BP 103/56; PULSE 51; RESP 18; O2SAT 97
[2020-01-31 23:21] LABS: Bacteria 0 SEEN /hpf (None Seen); Mucous, Urine 0 SEEN /hpf (<or=2+); Red Blood Cells-Urine 0 SEEN /hpf (0-5); Squamous Epithelial Cells - UA 0 SEEN /hpf (0-5); White Blood Cells 0 SEEN /hpf (0-5)
[2020-01-31 23:25] LABS: Color, Urine Yellow (Yellow); Glucose, Dipstick Normal (Normal); Ketone-Dipstick Negative (Negative); Leukocyte Esterase-Dipstick Negative /ul (Negative); Nitrite-Dipstick Negative (Negative); Occult Blood-Urine 10 /ul (Negative); Protein-Dipstick 30 mg/dl (Negative); Urine Bilirubin Dipstick Negative (Negative); Urine Clarity Clear (Clear); Urine Urobilinogen Normal (Normal)
[2020-01-31 23:41] LABS: Amphetamine Urine VISTA NEGATIVE (<1000 ng/mL); Barbiturate Urine VISTA NEGATIVE (< 200 ng/mL); Benzodiazepine Urine VISTA NEGATIVE (< 200 ng/mL); Cocaine Urine VISTA NEGATIVE (< 300 ng/mL); Ecstacy Urine VISTA NEGATIVE (< 500 ng/mL); Methadone Urine VISTA NEGATIVE (< 300 ng/mL); PCP Urine VISTA NEGATIVE (< 25 ng/mL); THC Urine VISTA POSITIVE (< 50 ng/mL); Vista UDS pH Range 6
[2020-02-01] VITALS (16 sets, daily range): BP systolic 103–134; BP diastolic 58–78; PULSE 50–89; RESP 12–18; TEMP 36.2–36.9; O2SAT 96–100; BMI 35.7; BMI 35.8
--- NOTE | 2020-02-01 00:05 | HP.PCM_ITS ---
Problem List (1) Acute encephalopathy Status: Acute (2) Hypotension Status: Acute (3) Sinus bradycardia by electrocardiogram Status: Acute (4) Altered mental status Status: Acute (5) Adverse reaction to drug Status: Acute (6) Obesity (BMI 30-39.9) Status: Chronic (7) GERD (gastroesophageal reflux disease) Status: Chronic (8) History of prolactinoma Status: Chronic (9) Hypertension Status: Chronic (10) Chronic pain Status: Chronic (11) MILAGROS (acute kidney injury) Status: Acute (12) Chest pain Status: Acute History of Present Illness Date of Admission: 02/01/20 Chief Complaint: lethargy The patient is a 69 year old M with a 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 His lethargy began at 5 PM which was 4 hours before his presentation. Patient could not move. Also he had nausea, vomiting and shortness of breath. Further, he had chest pain. Reportedly he took a new prescription of Flexeril at about 4:15 PM. He may have taken 2 tablets of his Flexeril instead of half to 1 tablet that has been prescribed. Also for the first time he took escalated dose of prescribed gabapentin. He used to take take the gabapentin 600 mg 3 times daily but it was escalated to 800 mg p.o. 3 times daily. Further, in the morning of presentation around 10 AM he ate food from [employer] and thereafter had an one episode of loose stool. At emergent department patient was found to be hypotensive with initial blood pressure of 76/51. He responded to 2 L of fluid. Further he was found to have sinus bradycardia and sinus arrhythmia. Per emergent department doctor patient was unresponsive on presentation but had a blink reflex. Past Medical History Past Medical History (Chronic Problems): Chronic Problems (Last Reviewed 02/01/20 @ 01:[address] Delio Benítez MD) Obesity (BMI 30-39.9) (Chronic) GERD (gastroesophageal reflux disease) (Chronic) History of prolactinoma (Chronic) Hypertension (Chronic) Chronic pain (Chronic) Medical History: Medical History (Last Reviewed 02/01/20 @ 01:[address] Delio Benítez MD) Chronic pain (Chronic) G89.29 Back pain M54.9 Fatigue R53.83 Hypothyroidism E03.9 Migraines G43.909 HTN (hypertension) I10 Allergies No Known Allergies Allergy (Verified 01/31/20 21:17) Home Medications: Ambulatory Orders Medication Instructions Recorded Desmopressin Acetate [Ddavp] 0.2 mg PO BID 11/04/17 Levothyroxine [Synthroid] 137 mcg PO DAILY 11/04/17 ibuprofen 600 mg tablet 600 mg PO TID PRN #30 tab 05/07/19 testosterone 1.62 % (20.25 mg/1.25 4 packet TOPICAL DAILY g 08/21/19 gram) transdermal gel packet compress.stocking,knee,reg,lrg See Rx Instructions .ROUTE 09/02/19 .MEDSUPPLY #2 ea amlodipine 10 mg tablet 10 mg PO DAILY #90 tab 09/16/19 lisinopril 10 mg tablet 10 mg PO DAILY #90 tab 09/16/19 cyclobenzaprine 10 mg tablet 5 - 10 mg PO TID PRN #60 tab 01/28/20 gabapentin 800 mg tablet 800 mg PO TID #90 tab 01/28/20 Omeprazole 20 mg PO DAILY 01/31/20 Surgical History: Surgical History (Last Reviewed 02/01/20 @ 01:[address] Delio Benítez MD) History of back surgery Z98.890 twice History of cranial surgery Z98.890 History of knee replacement Z96.659 right History of orthopedic surgery Z98.890 right ankle History of shoulder surgery Z98.890 history of skin graph after sarcoma on the right leg following an accident at work, 2006 Surgical History: - - Right leg surgery with skin graft Lives: Spouse/ Significant Other Smoking Status: Former smoker Alcohol: None Drugs: Marijuana Review of Systems Constitutional: Denies: Chills, Fever, Weight Change HEENT: Denies: Head Aches, Sinus Congestion, Sinus Drainage Cardiovascular: Reports: Chest Pain. Denies: Palpitations Respiratory: Reports: Shortness of Breath. Denies: Cough, Sputum production Gastrointestinal: Reports: Diarrhea, Nausea, Vomiting. Denies: Abdominal Pain Genitourinary: Denies: Dysuria Musculoskeletal: Denies: Joint Pain, Joint Tenderness Skin: Denies: Rash, Wounds Neurological: Denies: Numbness, Tingling, Focal weakness Psychiatric: Denies: Anxiety, Depression, Homicidal Ideations, Suicidal Ideations Hematologic/ Lymphatic: Denies: Easy Bruising, Easy Bleeding VTE Information - Inpt Only VTE Present on Admission: No VTE Mechan Device Prophylaxis: None VTE Pharm Prophylaxis ordered?: Yes Patient Problems: Active and Suspected Problems (Last Reviewed 02/01/20 @ 01:[address] Delio Benítez MD) Hypotension (Acute) Sinus bradycardia by electrocardiogram (Acute) Altered mental status (Acute) Adverse reaction to drug (Acute) Acute encephalopathy (Acute) MILAGROS (acute kidney injury) (Acute) Chest pain (Acute) - Physical Exam Vitals/I&O's: Vital Signs Temp Pulse Resp BP Pulse Ox 97.6 F L 51 L 18 103/56 L 97 01/31/20 21:09 01/31/20 23:20 01/31/20 23:20 01/31/20 23:20 01/31/20 23:20 Oxygen Delivery Method Room Air Weight: 110.9 kg Body Mass Index (BMI) 36.1 Intake and Output for Last 24 Hours 01/30/20 01/31/20 02/01/20 23:59 23:59 23:59 Intake Total 1999 Balance 1999 General: Oriented x3, Cooperative, Lethargic HEENT: Atraumatic, PERRLA, EOMI, Normocephalic Neck: Supple, No JVD, Negative Carotid Bruits Lungs: Clear to auscultation, Normal air movement Cardiovascular: Regular rate, Regular Rhythm, Normal S1, Normal S2, No murmurs, Bradycardic Abdomen: Bowel Sounds Present, Soft, Non Tender Extremities: No edema, Capillary Refill Less than 3 Seconds Skin: No rashes, No breakdown Musculoskeletal: No Tenderness to Palpation of Joints or Extremities Neurological: Cranial nerves II-XII grossly intact Psych/Mental Status: Normal Affect, Appropriate Laboratory Results 01/31/20 21:15: WBC 8.7, RBC 5.01, Hgb 14.9, Hct 44.7, MCV 89.2, MCH 29.7, MCHC 33.3, RDW Std Deviation 40.3, RDW Coeff of Nicole 12.4, Plt Count 212, MPV 11.3, Immature Gran % (Auto) 0.500, Neut % (Auto) 71.0 H, Lymph % (Auto) 19.7, [place] % (Auto) 8.0, Eos % (Auto) 0.5, Baso % (Auto) 0.3, Absolute Neuts (auto) 6.2, Absolute Lymphs (auto) 1.72, Nucleated RBC % 0 01/31/20 21:15: PT 14.4, INR 1.2, APTT 22.8 L 01/31/20 21:15: Sodium 137, Potassium 4.9, Chloride 106, Carbon Dioxide 27.0, Anion Gap 4 L, BUN 25 H, Creatinine 1.55 H, Estim Creat Clear Calc 44.98, Est GFR (MDRD) Af Amer 57 L, Est GFR (MDRD) Non-Af 47 L, BUN/Creatinine Ratio 16.1, Glucose 114 H, Calcium 8.6, Total Bilirubin 0.30, AST 19, ALT 41, Alkaline Phosphatase 64, Troponin I < 0.015, Total Protein 7.3, Albumin 4.3, Globulin 3.0, Albumin/Globulin Ratio 1.4 01/31/20 21:30: Lactic Acid 1.4 01/31/20 23:03: Ethyl Alcohol 8.0 01/31/20 23:10: Urine Color Yellow, Urine Clarity Clear, Urine pH 7.0, Ur Specific [place] 1.010, Urine Protein 30 H, Urine Glucose (UA) Normal, Urine Ketones Negative, Urine Occult Blood 10 H, Urine Nitrite Negative, Urine Bilirubin Negative, Urine Urobilinogen Normal, Ur Leukocyte Esterase Negative, Urine RBC 0 SEEN, Urine WBC 0 SEEN, Ur Squamous Epith Cells 0 SEEN, Urine Bacteria 0 SEEN, Urine Mucus 0 SEEN 01/31/20 23:10: Urine Opiates Screen NEGATIVE, Urine Methadone Screen NEGATIVE, Ur Barbiturates Screen NEGATIVE, Ur Phencyclidine Scrn NEGATIVE, Ur Amphetamines Screen NEGATIVE, U Methamphetamin-MDMA NEGATIVE, U Benzodiazepines Scrn NEGATIVE, Urine Cocaine Screen NEGATIVE, U Cannabinoids Screen POSITIVE H, Ur Drug Screen Comment Assessment/Plan All Active Problems (Last Reviewed 02/01/20 @ 01:[address] 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 Acute encephalopathy Like secondary to a combination of Flexeril and escalated dose of gabapentin. Hold Flexeril and gabapentin. Hypotension Likely secondary to adverse drug reaction from Flexeril; and from escalated dose of gabapentin. Hold Flexeril and gabapentin. Received normal saline bolus at emergency department. We will continue patient on maintenance normal saline infusion. Will admit to PCU stepdown. Hold home blood pressure medications of amlodipine and lisinopril. chest pain He has been having chest pain for about a month. We will get an echocardiogram especially as patient also has hypotension. MILAGROS Creatinine on presentation was 1.55 Review of old records shows a creatinine baseline of around 0.9. BUN is 25. BUN over creatinine is 16.1. Likely prerenal progressing into intrinsic renal. Hold nephrotoxins. Accordingly we will hold home lisinopril and ibuprofen. GERD PPI continued. Obesity: BMI 36.1. Complicates care. Recommend lifestyle modification. DVT prophylaxis Subcutaneous Lovenox. Inpatient E&M: 32166 Init Hosp L3
--- NOTE | 2020-02-01 01:51 | ECHOD_ITS ---
Reason For Study: CHF Procedure This was a 2D Doppler, Color Flow transthoracic echocardiogram. The study was technically difficult. Exam performed portable in patient room. Left Ventricle Normal LV size. Mild concentric left ventricular hypertrophy. Left ventricular systolic function is normal. The estimated ejection fraction is 65 %. Diastolic function is indeterminate. No regional wall motion abnormalities noted. Right Ventricle Normal RV size. Normal systolic function. Atria The left atrium is mildly enlarged. Normal right atrium. No doppler evidence for ASD. Mitral Valve There is no mitral annular calcification. Normal mitral valve. Mild (1+) mitral valve insufficiency. Tricuspid Valve Normal tricuspid valve. Trivial tricuspid valve insufficiency. Unable to estimate RV systolic pressure/pulmonary artery pressure due to technically difficult study. Aortic Valve Trisinus/trileaflet aortic valve. Normal aortic valve. Mild (1+) aortic valve insufficiency. Pulmonic Valve The pulmonic valve is not well visualized. Great Vessels Normal sized aortic root. Pericardium/Pleural No pericardial effusion. MMode/2D Measurements & Calculations LVIDd: 4.2 cm IVSd: 1.3 cm Ao root diam: 3.4 cm LVIDs: 2.9 cm LVPWd: 1.3 cm RVDd: 4.1 cm FS: 32.0 % LAV(MOD-bp): 79.4 ml LA A4 area: 24.1 cm2 LA dimension(2D): 4.4 cm LAV(MOD-bp) Indexed: 35.3 ml/m2 LAV(MOD-sp2): 71.7 ml LAV(MOD-sp4): 83.1 ml RA A4 area: 17.7 cm2 Doppler Measurements & Calculations MV E max ahmet: 66.8 cm/sec Lat Peak E' Ahmet: 8.8 cm/sec Med Peak E' Ahmet: 6.6 cm/sec MV A max ahmet: 73.2 cm/sec E/E' lat: 7.6 E/E' med: 10.1 MV E/A: 0.91 Ao V2 max: 128.9 cm/sec AI max ahmet: 385.1 cm/sec LV V1 max: 106.8 cm/sec Ao max P.6 mmHg AI max P.3 mmHg LV V1 max P.6 mmHg Ao V2 mean: 90.8 cm/sec AI dec slope: 171.2 cm/sec2 Ao mean P.6 mmHg AI P1/2t: 659.0 msec Ao V2 VTI: 31.2 cm PA V2 max: 89.3 cm/sec Interpretation Summary The study was technically difficult. Left ventricular systolic function is normal. The estimated ejection fraction is 65 %. Mild concentric left ventricular hypertrophy. The left atrium is mildly enlarged. Mild (1+) mitral valve insufficiency. Trivial tricuspid valve insufficiency. Mild (1+) aortic valve insufficiency. Unable to estimate RV systolic pressure/pulmonary artery pressure due to technically difficult study. Diastolic function is indeterminate. Ordering Physician: Delio Benítez Referring Physician: Fay Chaney Performed By: Keren Lees, KRYSTEN, RVT
[2020-02-01] MEDS: 0.9% Normal Saline 1,000 ML 100 ML IV ×2 (02:37→15:02)
[2020-02-01] MEDS: 0.9% Saline Lock 10 ML Syringe IV (02:38)
[2020-02-01] MEDS: Levothyroxine 137 MCG Tablet PO (05:10)
[2020-02-01] MEDS: LORazepam 2 MG/ML Syringe IV (06:15)
--- NOTE | 2020-02-01 06:15 | CT_ITS ---
STUDY: CT BRAIN WITHOUT CONTRAST REASON FOR EXAM: Male, 69 years old. PT RANDOMLY BECOMING UNRESPONSIVE TO STIMULI FOR SHORT PERIODS OF TIME, POSSIBLE UNINTENTIONAL PRESCRIPTION DRUG OVERDOSE RADIATION DOSAGE (If Supplied By Facility): CTDIvol = ( 44.99 ) mGy, DLP = ( 812.98 ) mGycm TECHNIQUE: Transaxial CT imaging of the brain was performed without administration of intravenous contrast material. Individualized dose optimization techniques were used for this CT. COMPARISON: No relevant priors. FINDINGS: Normal soft tissue structures. Normal calvarium. Normal size ventricles and extra-axial spaces for the patient''s age. Normal white matter tracts of the cerebral hemispheres. Normal basal ganglia and thalami. Normal brainstem. Normal cerebellum. There is no intracranial hemorrhage. There are no findings of an acute ischemic infarction. Normal visualized paranasal sinuses. CT/Brain/Head without Contrast IMPRESSION: Normal unenhanced CT scan of the brain. Electronically Signed: Colten Philip MD at 7:39 EDT Tel , Service support ,
--- NOTE | 2020-02-01 06:29 | PCM.RRT.BLA ---
Rapid Response Note - Blank Patient was rapid response for blank stare and unresponsiveness. Reportedly patient had a blink reflex. Patient was examined at the bedside. Noted a transient episode of blank stare and unresponsiveness. Heart sounds S1-S2 present Lung with mild rales at bases. Abdomen soft, bowels are present Extremities without cyanosis clubbing or edema Neuro: Blank stare. Passively raise hands above the head when dropped did not hit head. Acute encephalopathy Etiology unclear. Get a stat CT head without contrast. Ativan 2 mg IV x1 given with improvement in because patient to be more lucid. Ativan 2 mg as needed ordered. Notify MD upon administration. Seizure pads ordered. EEG Prolactin level. Consider neurology consult.
[2020-02-01 06:46] LABS: Bedside Glucose 118 mg/dL (70-110)
--- NOTE | 2020-02-01 06:53 | NURSING ---
This RN entered pt room shortly after 06:00. Pt mumbled what sounded like, I feel and then pt noted to be staring blankly. Pt was not responding to verbal stimuli. esl tutor called to room. Decision made to activate Rapid Response team. Dr. Benítez to bedside. Pt became more lucid but was in and out of this blank stare several times. STAT CT Head without contrast ordered, EEG ordered, Prolactin level ordered, 2 mg Ativan IV x1 given, seizure pads placed, pt made NPO. This RN and BRIDGE TENDER transported pt to CT and back PCU. When last assessed, pt was A/O x3. This RN called pt , Amy and gave her an update. Pt states pt had something like this before about 4 years ago. States he was at [facility] for about a week. This RN informed Amy of new plan of care. Amy expressed thanks.
[2020-02-01 09:32] LABS: Prolactin 11.2 ng/mL
--- NOTE | 2020-02-01 10:10 | CASEMGMT ---
RN MARIA FERNANDA Face to Face with patient for initial transition planning/care coordination assessment. RN CM introduced self and role at [facility]. Patient sitting, alert and oriented. Patient willing to participate in assessment and is able to answer all questions appropriately. Care providers, pharmacy, and demographics verified. Patient wishes to discharge home, denies need for home health at this time. Patient states he has no further needs or concerns at this time. CM to follow for discharge planning needs that may arise. PCP: Ritu Specialists: [facility] [place] Preferred Pharmacy: [facility] [place] [facility] [place] Prescription Benefit: yes Living Will/HPOA: none LNOK: Living Arrangements: Patient lives with in a 1 story home with 4 steps and railing to enter the home. Patient states he is independent at home. Transportation: self/ DME/HHC: Patient states he has shower chair, raised toilet seat, crutches, grab bars, and walker at home. Patient has had [facility] in the past Disposition Plan: Patient to discharge home with family support and follow-up plans in place. Clarisse SPRINGER, RN, CM
[2020-02-01 11:26] LABS: Bedside Glucose 119 mg/dL (70-110)
--- NOTE | 2020-02-01 11:45 | TELEMED_ITS ---
[facility] Tele[facility] has confirmed receipt of a request for visit. This document confirms receipt of the order initiating the consult. To find the results of the consultation, please view the patient's reports for the scanned Telemed Consult.
[2020-02-01 12:03] LABS: ALB/GLOB Ratio 1.1 RATIO (0.9-2.4); AST(SGOT) 27 U/L (15-37); Alanine Aminotransfer ALT/SGPT 32 U/L (16-61); Albumin, Serum 3.1 g/dL (3.2-5.0); Alkaline Phosphatase 50 U/L (45-117); Anion Gap 4 (5-15); BUN 18 mg/dL (7-18); BUN/Creat Ratio 22.5 RATIO (10-20); Calcium,Total 7.3 mg/dL (8.5-10.1); Chloride 117 mmol/L (98-107); EST Glomerular Filtration Rate 102 mL/min (>60); Est Glom Filt Rate - Afr Amer 123 mL/min (>60); Estimated Creatinine Clearance 87.15 ml/min; Globulin 2.7 g/dL (2.2-4.2); Glucose 94 mg/dL (74-106); Protein, Total 5.8 g/dL (6.4-8.2); Sodium Level 142 mmol/L (136-145)
[2020-02-01 12:04] LABS: Potassium 4.8 mmol/L (3.5-5.1)
[2020-02-01] MEDS: DESMOPRESSIN ACETATE 0.1 MG TABLET 0.2 MG PO (17:03)
[2020-02-02] MEDS: 0.9% Normal Saline 1,000 ML 100 ML IV (00:31)
[2020-02-02 03:00] VITALS: PULSE 60
[2020-02-02 03:43] VITALS: BP 159/72; PULSE 64; RESP 16; TEMP 36.9; O2SAT 97
[2020-02-02] MEDS: Levothyroxine 137 MCG Tablet PO (05:44)
[2020-02-02] MEDS: DESMOPRESSIN ACETATE 0.1 MG TABLET 0.2 MG PO (05:46)
[2020-02-02 07:21] VITALS: PULSE 87
--- NOTE | 2020-02-02 08:51 | DCINST_ITS ---
- Discharge Diagnoses Current Active Problems: Current Active and Chronic Problems (Last Reviewed 02/01/20 @ 01:[address] Delio Benítez MD) Hypotension (Acute) Sinus bradycardia by electrocardiogram (Acute) Altered mental status (Acute) Adverse reaction to drug (Acute) Acute encephalopathy (Acute) MILAGROS (acute kidney injury) (Acute) Chest pain (Acute) Exertional angina (Acute) You will use the following diet at home:: Calorie/Carbohydrate Controlled (specify 1200, 1400, etc) - 1800, Cardiac Your food should be the consistency of: Regular Your liquids should be the consistency of: Regular/Thin Discharge Activity: Return to Normal Activity Call your doctor if you observe: Fever of 101 or Higher, Shortness of breath, Dizziness, Fainting spells, Swelling in the ankles, Chest pain, Increased palpitations (irregular heartbeat) Allergies/Adverse Reactions: Allergies No Known Allergies Allergy (Verified 01/31/20 21:17) Medications to take at Discharge Desmopressin Acetate [Ddavp] 0.2 mg PO BID 11/04/17 Levothyroxine [Synthroid] 137 mcg PO DAILY 11/04/17 ibuprofen 600 mg tablet 600 mg PO TID PRN #30 tab 05/07/19 testosterone 1.62 % (20.25 mg/1.25 gram) transdermal gel packet 4 packet TOPICAL DAILY g 08/21/19 amlodipine 10 mg tablet 10 mg PO DAILY #90 tab 09/16/19 lisinopril 10 mg tablet 10 mg PO DAILY #90 tab 09/16/19 Gabapentin 400 mg PO TID #90 tab 02/02/20 Primary Care Physician: Fay Chaney MD [Primary Care Provider] - Please follow up with your Primary Care Physician in: 3-5 days Test Results: Test results from this visit will be discussed in further detail at your follow- up appointment, if applicable.
--- NOTE | 2020-02-02 08:54 | PCM.DC.SUM ---
Discharge Date and Diagnosis - Problem List Patient Problems: Active and Suspected Problems (Last Reviewed 02/01/20 @ 01:[address] Delio Benítez MD) Hypotension (Acute) Sinus bradycardia by electrocardiogram (Acute) Altered mental status (Acute) Adverse reaction to drug (Acute) Acute encephalopathy (Acute) MILAGROS (acute kidney injury) (Acute) Chest pain (Acute) Exertional angina (Acute) Date of Admission: 02/01/20 Date of Discharge: 02/02/20 - Primary Discharge Diagnosis Acute Problems: Active Problems (Last Reviewed 02/01/20 @ 01:[address] Delio Benítez MD) Hypotension (Acute) Sinus bradycardia by electrocardiogram (Acute) Altered mental status (Acute) Adverse reaction to drug (Acute) Acute encephalopathy (Acute) MILAGROS (acute kidney injury) (Acute) Chest pain (Acute) Exertional angina (Acute) - Secondary Discharge Diagnosis Chronic Problems: Chronic Problems (Last Reviewed 02/01/20 @ 01:[address] Delio Benítez MD) Obesity (BMI 30-39.9) (Chronic) GERD (gastroesophageal reflux disease) (Chronic) History of prolactinoma (Chronic) Hypertension (Chronic) Chronic pain (Chronic) Hospital Course and Treatment Imaging Results: Clinical Impression(s) from Imaging Studies Chest X-Ray 01/31/20 21:37 IMPRESSION: No acute cardiopulmonary findings or changes. Negative for new infiltrates, consolidation, cardiomegaly or pleural effusion. Normal cardiac size. Electronically Signed: Pratibha Dorado MD at 22:00 EDT , Service support , Brain CT 02/01/20 06:15 IMPRESSION: Normal unenhanced CT scan of the brain. 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 His lethargy began at 5 PM which was 4 hours before his presentation. Patient could not move. Also he had nausea, vomiting and shortness of breath. Further, he had chest pain. Reportedly he took a new prescription of Flexeril at about 4:15 PM. He may have taken 2 tablets of his Flexeril instead of half to 1 tablet that has been prescribed. Also for the first time he took escalated dose of prescribed gabapentin. He used to take take the gabapentin 600 mg 3 times daily but it was escalated to 800 mg p.o. 3 times daily. Further, in the morning of presentation around 10 AM he ate food from [employer] and thereafter had an one episode of loose stool. At emergent department patient was found to be hypotensive with initial blood pressure of 76/51. He responded to 2 L of fluid. Further he was found to have sinus bradycardia and sinus arrhythmia. Per emergent department doctor patient was unresponsive on presentation but had a blink reflex. Hospital Course: 1. 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 He had an TUB MENDER on the day of admission for acute encephalopathy and a possible seizure. However at the time of the event he had a blink reflex indicating that it was a pseudoseizure. He underwent an EEG and during the EEG he also had another episode of seizure-like activity where he became very still and clenched his mouth however he had a gag reflex with a tongue depressor and came out of the seizure immediately. He had the EEG evaluated by tele-neurology, who did not notice any seizure-like activity on the EEG especially during when he had that episode. His Flexeril was discontinued and his gabapentin was decreased from 800 mg p.o. 3 times daily to 400 mg p.o. 3 times daily. On the day of discharge she is feeling great, he does not want to stay here he wants to go home. I did discuss with him the risks and benefits of going home and he expressed understanding. 2. Hypotension/MILAGROS/acute metabolic encephalopathy-when he did present to the ER his blood pressure was low in the 70s systolic secondary to his blood pressure medication as well as dehydration and likely the new prescription for Flexeril. Since he has been in the hospital his blood pressure recovered with IV fluids his creatinine has improved from 1.55 to 0.8. He can restart his home blood pressure medications on discharge, and if he notices that his blood pressure goes down he is to stop and call his PCP however he is only on 10 of lisinopril and 10 of Norvasc, and as long as he does not take the Flexeril limits decreasing gabapentin then he should likely be okay. Patient Problems: Active and Suspected Problems (Last Reviewed 02/01/20 @ 01:[address] Delio Benítez MD) Hypotension (Acute) Sinus bradycardia by electrocardiogram (Acute) Altered mental status (Acute) Adverse reaction to drug (Acute) Acute encephalopathy (Acute) MILAGROS (acute kidney injury) (Acute) Chest pain (Acute) Exertional angina (Acute) - Physical Exam Vitals/I&O's: Vital Signs Temp Pulse Resp BP Pulse Ox 98.4 F 87 16 159/72 H 97 02/02/20 03:43 02/02/20 07:21 02/02/20 03:43 02/02/20 03:43 02/02/20 03:43 Oxygen Delivery Method Room Air Weight: 243 lb 2.718 oz Body Mass Index (BMI) 35.7 Intake and Output for Last 24 Hours 01/31/20 02/01/20 02/02/20 23:59 23:59 23:59 Intake Total 1999 3020 / 3020 1188.33 / 1188.33 Output Total 4725 / 4725 400 / 400 Balance 1999 -1705 / -1705 788.33 / 788.33 General: Alert, Oriented x3, Cooperative, No apparent distress HEENT: Atraumatic, PERRLA, EOMI, Normocephalic Oral: Moist Mucosa Neck: Supple, No JVD Lungs: Clear to auscultation, Normal air movement, No rhonchi, No wheeze, No rales Cardiovascular: Regular rate, Regular Rhythm, Normal S1, Normal S2, No murmurs Abdomen: Soft, Non Tender, Non-Distended, No Hepato-splenomegaly Extremities: No edema, Capillary Refill Less than 3 Seconds Skin: No rashes, No breakdown Neurological: Neuro grossly intact, Sensory exam intact to light touch and pain Psych/Mental Status: Normal Affect, Appropriate Laboratory Results 02/01/20 08:40: Troponin I < 0.015, Prolactin 11.2 02/01/20 08:40: Prolactin Cancelled 02/01/20 08:40: Sodium 142, Potassium 4.8, Chloride 117 H, Carbon Dioxide 21.0, Anion Gap 4 L, BUN 18, Creatinine 0.80, Estim Creat Clear Calc 87.15, Est GFR (MDRD) Af Amer 123, Est GFR (MDRD) Non-Af 102, BUN/Creatinine Ratio 22.5 H, Glucose 94, Calcium 7.3 L, Total Bilirubin 0.40, AST 27, ALT 32, Alkaline Phosphatase 50, Total Protein 5.8 L, Albumin 3.1 L, Globulin 2.7, Albumin/Globulin Ratio 1.1 02/01/20 11:20: POC Glucose 119 H Current Medications Albuterol Sulfate (Ventolin Aerosols) 2.5 mg INHALATION Q2H PRN PRN PRN Reason: SOB/Wheezing Desmopressin Acetate (Ddavp) 0.2 mg PO BID [facility] Last Admin: 02/02/20 05:46 Dose: 0.2 mg Documented by: Enoxaparin Sodium (Lovenox) 40 mg SC DAILY [facility] Last Admin: 02/01/20 15:01 Dose: Not Given Documented by: Sodium Chloride () 1,000 mls @ 100 mls/hr IV .Q10H [facility] Last Admin: 02/02/20 00:31 Dose: 100 mls/hr Documented by: Sodium Chloride () 250 mls @ 15 mls/hr IV .[id number] PRN PRN Reason: Saline Flush Sodium Chloride () 250 mls @ 15 mls/hr IV .[id number] PRN PRN Reason: Additional IVPB Infusion Levothyroxine Sodium (Synthroid) 137 mcg PO DAILY@0600 [facility] Last Admin: 02/02/20 05:44 Dose: 137 mcg Documented by: Lorazepam (Ativan) 2 mg IV X1 PRN PRN Reason: Blank Stare Ondansetron HCl (Zofran) 4 mg IV Q8H PRN PRN PRN Reason: NAUSEA/VOMITING Sodium Chloride () 10 - 40 ml IV UD PRN PRN Reason: SALINE FLUSH Last Admin: 02/01/20 02:38 Dose: 10 ml Documented by: Discharge Activity: Return to Normal Activity Call your doctor if you observe: Fever of 101 or Higher, Shortness of breath, Dizziness, Fainting spells, Swelling in the ankles, Chest pain, Increased palpitations (irregular heartbeat) Home Medications: Medications to take at Discharge Desmopressin Acetate [Ddavp] 0.2 mg PO BID 11/04/17 Levothyroxine [Synthroid] 137 mcg PO DAILY 11/04/17 ibuprofen 600 mg tablet 600 mg PO TID PRN #30 tab 05/07/19 testosterone 1.62 % (20.25 mg/1.25 gram) transdermal gel packet 4 packet TOPICAL DAILY g 08/21/19 amlodipine 10 mg tablet 10 mg PO DAILY #90 tab 09/16/19 lisinopril 10 mg tablet 10 mg PO DAILY #90 tab 09/16/19 Gabapentin 400 mg PO TID #90 tab 02/02/20 Primary Care Physician: Fay Chaney MD [Primary Care Provider] - Please follow up with your Primary Care Physician in: 3-5 days Disposition: Home Minutes spent on discharge:: 35 Patient Condition:: Stable Medical Necessity - Tobacco Use Smoking Status: Former smoker Meaningful Use Info Meaningful Use Diagnoses (Choose all that apply): None applicable Inpatient E&M: 82302 Disch Hosp
[2020-02-02 09:43] VITALS: BP 146/67; PULSE 60; RESP 15; TEMP 36.6; O2SAT 96
[2020-02-02 11:30] VITALS: BP 142/66; PULSE 60; RESP 17; TEMP 36.6; O2SAT 98
--- NOTE | 2020-02-02 11:30 | NURSING ---
Work excuse provided to patient from 02/01/2020-02/02/2020. May return to work without restrictions 02/03/2020.
== END 2020-02-02 11:55 | disposition home or self-care (01) | DRG 92 ==
LOC: ED 02-01 00:02 → PCU 02-01 01:18
PROVIDERS: Physician Assistant; Admitting Provider Hospitalist; Emergency Provider Emergency Medicine; PCP Internal Medicine; Referring Provider Hospitalist; Visit Provider Family Medicine
DX: G92 Toxic encephalopathy (principal); N17.9 Acute kidney failure, unspecified; E23.2 Diabetes insipidus; I95.2 Hypotension due to drugs; T48.1X5A Adverse effect of skeletal muscle relaxants [neuromuscular blocking agents], initial encounter; Y92.9 Unspecified place or not applicable; R00.1 Bradycardia, unspecified; F44.4 Conversion disorder with motor symptom or deficit; I20.8 Other forms of angina pectoris; I10 Essential (primary) hypertension; E86.0 Dehydration; M54.9 Dorsalgia, unspecified; G89.29 Other chronic pain; K21.9 Gastro-esophageal reflux disease without esophagitis; E66.9 Obesity, unspecified; Z87.891 Personal history of nicotine dependence; G43.909 Migraine, unspecified, not intractable, without status migrainosus; Z79.899 Other long term (current) drug therapy; E03.9 Hypothyroidism, unspecified; Z68.36 Body mass index [BMI] 36.0-36.9, adult
CPT/HCPCS: 36415; 51702; 70450; 71045; 80053; 80307; 80320; 81001; 82962; 83605; 84146; 84484; 85025; 85610; 85730; 93005; 93306; 94762; 95819; 97163; 97166; 99285; J7030; A4216; G0480

== ENCOUNTER → 2020-06-02 10:56 | Outpatient (CLI) | payer OTHER, MEDICARE, SELFPAY ==
[2020-06-02 10:33] VITALS: BMI 35.4
== END ==
PROVIDERS: PCP Internal Medicine; Referring Provider Nurse Practitioner Family; Visit Provider Nurse Practitioner Family
DX: E03.9 Hypothyroidism, unspecified (principal)
CPT/HCPCS: 36415; 84443

== ENCOUNTER → 2020-06-08 16:57 | Outpatient (CLI) | payer OTHER, MEDICARE, SELFPAY ==
[2020-06-02 10:33] VITALS: BMI 35.4
[2020-06-08 17:27] LABS: Absolute Lymphocyte Count 2.89 X10^3/uL (0.83-4.51); Absolute Neutrophil Count 4.2 X10^3/uL (2.0-7.7); Basophil# 0.05 X10^3/uL; Basophil% 0.6 % (0-1); Eosinophil# 0.18 X10^3/uL; Eosinophils% 2.3 % (0-5); Hematocrit 45.9 % (40-54); Hemoglobin 15.1 g/dL (13.0-16.5); Lymphocyte # 2.89 X10^3/ul (4.0); Lymphocyte % 36.4 % (19-41); Mean Corp Hgb Conc 32.9 g/dL (32-36); Mean Corpuscular Volume 88.1 fL (80-94); Mean Platelet Vol. 11.1 fl (6.2-12.0); Monocyte# 0.63 X10^3/uL; Monocyte% 7.9 % (0-10); NRBC Flagged by Analyzer 0 % (0-5); Neutrophil # 4.16 X10^3/uL (2.7-7.7); Neutrophil % 52.5 % (47-70); Platelet Count 220 K/mm3 (150-450); RBC Distribution Width CV 13.1 % (11.6-14.6); RBC Distribution Width SD 41.7 fl (35.1-43.9); Red Blood Count 5.21 M/mm3 (4.6-6.2); White Blood Count 7.9 K/mm3 (4.4-11.0)
--- NOTE | 2020-06-08 17:42 | RAD_ITS ---
STUDY: X-RAY - LUMBAR SPINE REASON FOR EXAM: Male, 69 years old. CHRONIC BACK PAIN, HX OF SURGERY TECHNIQUE: 2 view(s) of the lumbar spine were obtained. COMPARISON: None FINDINGS: Normal lumbar lordosis. There is no substantial scoliosis. There is a normal alignment of the vertebrae. Prior pedicular fusion L3-L5 with grade 2 anterolisthesis L4 and L5 and disc spaces are placement. There is multilevel endplate spondylosis of the lumbar vertebrae most pronounced L4-5 and L1-L2. There is multi-level degenerative disc disease with multi-level disc space narrowing most pronounced L1-L2, L4 5, L3-L4. There is mild loss of vertebral body height L5, inferior L4, inferior L1 and superior L2. The soft tissue structures are unremarkable. RAD/Lumbar Spine 2 or 3 Views IMPRESSION: Degenerative changes and postsurgical changes as above. Comparison with previous examination to evaluate for progression of disease is recommended. Electronically Signed: Cami Vazquez MD at 3:00 EST , Service support ,
--- NOTE | 2020-06-08 17:45 | RAD_ITS ---
STUDY: X-RAY - ABDOMEN/PELVIS REASON FOR EXAM: Male, 69 years old. PAIN TECHNIQUE: AP supine and upright views of the abdomen and pelvis. Total 4 images COMPARISON: None. FINDINGS: Normal visualized lung bases. There is an unremarkable bowel gas pattern. There is no demonstrated free abdominal air. Probable cholecystectomy. Obesity. Prior ORIF of the lumbar spine. Degenerative changes. RAD/Abd Inc Decub and/or Erect IMPRESSION: There is no obstruction or perforation. Electronically Signed: Cami Vazquez MD at 2:54 EST , Service support ,
[2020-06-08 18:41] LABS: ALB/GLOB Ratio 1.5 RATIO (0.9-2.4); AST(SGOT) 14 U/L (15-37); Alanine Aminotransfer ALT/SGPT 39 U/L (16-61); Albumin, Serum 4.6 g/dL (3.2-5.0); Alkaline Phosphatase 61 U/L (45-117); Anion Gap 8 (5-15); BUN 23 mg/dL (7-18); Calcium,Total 8.9 mg/dL (8.5-10.1); Chloride 105 mmol/L (98-107); Creatinine, Serum 0.85 mg/dL (0.70-1.30); EST Glomerular Filtration Rate 95 mL/min (>60); Est Glom Filt Rate - Afr Amer 114 mL/min (>60); Globulin 3.1 g/dL (2.2-4.2); Glucose 91 mg/dL (74-106); Potassium 4.2 mmol/L (3.5-5.1); Protein, Total 7.7 g/dL (6.4-8.2); Sodium Level 140 mmol/L (136-145); Thyroid Stim Hormone (TSH) 0.17 uIU/mL (0.358-3.74)
[2020-06-08 19:36] LABS: Hepatitis C Antibody Non-Reactive (Nonreactive); Vitamin D,25 Hydroxy 13.5 ng/mL
[2020-06-09 12:08] LABS: T3 Uptake 31 % (33-40); T4 Free Direct 1.21 ng/dL (0.76-1.46)
== END ==
PROVIDERS: PCP Family Medicine Geriatric Medicine; Referring Provider Family Medicine Geriatric Medicine; Visit Provider Family Medicine Geriatric Medicine
DX: M79.2 Neuralgia and neuritis, unspecified (principal); R10.9 Unspecified abdominal pain; N39.0 Urinary tract infection, site not specified; E23.6 Other disorders of pituitary gland; E55.9 Vitamin D deficiency, unspecified; I10 Essential (primary) hypertension; Z12.5 Encounter for screening for malignant neoplasm of prostate; Z13.89 Encounter for screening for other disorder; E03.9 Hypothyroidism, unspecified
CPT/HCPCS: 36415; 72100; 74019; 80053; 82306; 84153; 84403; 84439; 84443; 84479; 85025; 86803; 87086; G0103

== ENCOUNTER → 2020-06-16 08:38 | Outpatient (CLI) | payer OTHER, MEDICARE, SELFPAY ==
[2020-06-02 10:33] VITALS: BMI 35.4
--- NOTE | 2020-06-16 08:40 | AAVD_ITS ---
Reason For Study: AAA w/o rupture Aorta Measurements Aorta Doppler Measurements Proximal aorta measures1.90 x 1.90cm. in cross- Peak systolic flow velocities within the proximal sectional axis. aorta measure 89.2 cm/sec. Proximal aorta measures1.92cm. in longitudinal Peak systolic flow velocities within the mid aorta axis. measure 101.5 cm/sec. Mid aorta measures1.52 x 1.52cm. in cross- Peak systolic flow velocities within the distal sectional axis. aorta measure 118 cm/sec. Mid aorta measures1.53cm. in longitudinal axis. Distal aorta measures1.56 x 1.58cm. in cross- sectional axis. Distal aorta measures1.58cm. in longitudinal axis. Left Iliac Artery Left iliac artery measures 1.45 x 1.43 cm. in the cross-sectional axis. Left iliac artery measures 1.20 cm. in the longitudinal axis. Peak systolic velocity in the left iliac artery measures 92.4 cm/sec. Right Iliac Artery Right iliac artery measures 1.27 x 1.25 cm. in the cross-sectional axis. Right iliac artery measures 1.28 cm. in the longitudinal axis. Peak systolic velocity in the right iliac artery measures 92.4 cm/sec. Procedure Aorta IVC Iliac vasculature or bypass grafts [id number]. Exam performed in department. Interpretation Summary The dimensions of the intra-abdominal aorta are normal, without aneurysmal dilatation. The iliac arteries are also normal in size bilaterally. The intra-abdominal aorta and iliac arteries are patent, demonstrating normal, pulsatile arterial flow and normal peak systolic velocities. Ordering Physician: Silverio Sandoval Referring Physician: Silverio Sandoval Chi Performed By: Clarisse Morocho RVT
== END ==
PROVIDERS: PCP Family Medicine Geriatric Medicine; Referring Provider Family Medicine Geriatric Medicine; Visit Provider Family Medicine Geriatric Medicine
DX: I71.4 Abdominal aortic aneurysm, without rupture (principal)
CPT/HCPCS: 93978

== ENCOUNTER → 2020-06-17 08:55 | Outpatient (CLI) | payer OTHER, MEDICARE, SELFPAY ==
[2020-06-02 10:33] VITALS: BMI 35.4
--- NOTE | 2020-06-17 09:04 | US_ITS ---
STUDY: ABDOMINAL ULTRASOUND REASON FOR EXAM: Male, 69 years old. ABD PAIN, NAUSEA AFTER EATING X FEW MONTHS HX OF CHOLECYSTECTOMY, 30 YEARS AGO TECHNIQUE: Transabdominal ultrasound was performed with real-time and static pickens scale imaging. TECHNICAL QUALITY: Adequate. COMPARISON: None. FINDINGS: Liver: The liver measures 17.4 cm. There is increased echogenicity consistent with fatty infiltration. The bile ducts are within normal limits. There is hepatic color flow. The direction of portal flow is hepatopetal. There is no demonstrated mass lesion. Portal vein measurement: Gallbladder: The patient is status post cholecystectomy. Common Bile Duct (C.B.D.): The common bile duct measures 7 mm. Pancreas: There is nonvisualization of the pancreas due to overlying bowel gas. Spleen: Normal size of the spleen. The spleen measures 10.9 cm x 3.1 cm x 3.5 cm. Right Kidney: Normal size of the right kidney. The right kidney measures 10.5 cm x 5.1 cm x 5 cm. Normal renal cortex. The right cortex measures 1.0 cm. There is no demonstrated renal mass or cyst. There is no right hydronephrosis. Left Kidney: Normal size of the left kidney. The left kidney measures 11.4 cm x 4.6 cm x 5.8 cm. Normal renal cortex. The left cortex measures 1.4 cm. There is no demonstrated renal mass or cyst. There is no left hydronephrosis. Aorta: Unremarkable I.V.C.: The IVC is patent. There is no ascites. US/Abdomen Complete IMPRESSION: Fatty infiltration of the liver. Electronically Signed: Loco Mcfarlane, at 15:01 EST , Service support ,
== END ==
PROVIDERS: PCP Family Medicine Geriatric Medicine; Referring Provider Family Medicine Geriatric Medicine; Visit Provider Family Medicine Geriatric Medicine
DX: R10.9 Unspecified abdominal pain (principal)
CPT/HCPCS: 76700

== ENCOUNTER → 2020-06-25 07:35 | Outpatient (CLI) | payer OTHER, MEDICARE, SELFPAY ==
[2020-06-02 10:33] VITALS: BMI 35.4
--- NOTE | 2020-06-25 07:37 | US_ITS ---
STUDY: ABDOMINAL ULTRASOUND - ELASTOGRAPHY REASON FOR VISIT: Male, 69 years old. Fatty infiltration of the liver. TECHNIQUE: Liver stiffness measurements were obtained on a [employer] RS 85 ultrasound machine using a CA 1-7 probe following the SRU guidelines. 3 measurements were obtained using a 2-D-SWE method. The IQR/M was 11% suggesting a quality data set. TECHNICAL QUALITY: Adequate. COMPARISON: None. FINDINGS: Liver: Fatty infiltration of the liver. Median liver stiffness measured 7.7 kPa. US/Elastography Parenchyma/Organ IMPRESSION: Liver stiffness measures 7.7 kPa compatible with F2 -- F3 Metavir score. Electronically Signed: Loco Mcfarlane, at 8:56 EST , Service support ,
== END ==
PROVIDERS: PCP Family Medicine Geriatric Medicine; Referring Provider Family Medicine Geriatric Medicine; Visit Provider Family Medicine Geriatric Medicine
DX: K76.0 Fatty (change of) liver, not elsewhere classified (principal)
CPT/HCPCS: 76981

== ENCOUNTER → 2020-06-29 06:31 | Outpatient (CLI) | payer OTHER, MEDICARE, SELFPAY ==
[2020-06-02 10:33] VITALS: BMI 35.4
== END ==
PROVIDERS: PCP Family Medicine Geriatric Medicine; Referring Provider Family Medicine Geriatric Medicine; Visit Provider Family Medicine Geriatric Medicine
DX: R56.9 Unspecified convulsions (principal)
CPT/HCPCS: 95819

== ENCOUNTER 2020-07-16 11:30 | Outpatient (RCR) | payer OTHER, MEDICARE, SELFPAY ==
[2020-06-02 10:33] VITALS: BMI 35.4
--- NOTE | 2020-07-13 09:37 | HP.PTEVAL_ITS ---
Patient's Visit Information SUNITA TOTH is a 69 year old M referred to Physical Therapy by Dr. Silverio Sandoval MD with a diagnosis of DDD. Date of Evaluation: 07/13/20 Physical Therapist: Amos Underwood DPT, OCS, CSCS - Visit Plan Frequency: 3x /Week Duration: 4-6 Weeks Plan: 3x/week pool therapy to start for: 1. LB ROM rotations, ext, flexion. 2. HS and quad and hip fexor stretches. 3. core and LE /postural strength and calorie burning.). Progress to I pool or HEP or back to doctor for MRI if no better in 3 weeks - Subjective Doctor wanted MRI on back and insurance required PT first(6 visits.) H/o two back surgeries and including fusion 2004 on lower lumbar. Enjoys gfing in summer and this strains it in the summer. Pain has been present long time.Greater than 20 years. 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 Pain is not necessarily worse but is not getting better. Morning's are the worst and up to 5-8/10 worse on cold mornings. It gets a little better as he moves. Ibuprofen helps. Naproxen can help. Pain is negligible after he starts moving unless he twists wrong. 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 Can be worse if needs to transfer them or turns wrong. Sleep is interrupted at times as he likes to sleep on side and rolling can hurt. 2 hours at time is good for him waking up 4x/night. Has had minimal therapy in the past. Basic aDLs getting done OK. Plays 3x/week in the summer golf. Back is numb at end of round, twinges while playing. Exercises : no - Pain LBP Pain Intensity (Out of 10): 7 Pain Intensity Range: 0, 8 - Objective Walks back to therapy very stiff but I. Trasnfers I. Steps very tiring and slightly weak but I. LB AROM very stiff and limited ext max and painful, flexion tight adn mod limtied. SB mod limtied, rotations mod limited. HS and quads very stiff at -35 L 90/90 and -25 R. reflexes 0/3 patella and achilles B. Has diminished sensation R lateral lower leg into foot but has a place where a sarcoma was removed. Strength LE 4/5 without myotomal problems. core strength 4-/5. Incsion inback is old and healed. Not tender in LB paraspinals or gluts, minimally in GT area B. - Goals Goal 1:: Sleep 4 hours iwhtou waking Goal Time Frame: 4-6 Weeks Goal 2:: Pt wake up with 3/10 pain at worst and move easily Goal Time Frame: 4-6 Weeks Goal 3:: Pt feel 75% better overall with activitiy and pain. Goal Time Frame: 4-6 Weeks Goal 4:: I approp HEP/pool ex to minimize future problems Goal Time Frame: 4-6 Weeks - Rehabilitation Potential Physical Therapy Diagnosis: DDD and stiffness/sedentary lifestyle leading to weakness and pain. Rehabilitation Potential: Fair - Anticipated Interventions Patient/Client Instruction: Educate patient on: Condition, Plan of Care For the Purpose of:: To decrease pain, To increase ROM, To improve muscle performance and motor function, To increase tolerance to activity/condition/position, To improve ability of physical actions for jami e/community/work/leisure Therapeutic Exercise to Include: Strength training, Postural training, Flexibilty training, In an aquatic setting, Passive ROM, Active ROM For the Purpose of:: To decrease pain, To increase ROM, To improve muscle performance and motor function, To increase tolerance to activity/condition/position, To improve ability of physical actions for home/community/work/leisure, To improve gait and locomotor functions Thank you for the opportunity to evaluate your patient. For Medicare and Medicare HMO plans, please review the plan of care and approve it. It will need to be FAXED BACK to us at [phone] for Medicare purposes. For Medicare only, by signing this I certify the plan of care. Please let me know if there are questions or concerns regarding this plan of care. Physician Signature: Date:
--- NOTE | 2020-08-27 15:34 | HP.PT.NRP ---
SUNITA TOTH was seen in my office for initial evaluation on 07/13/20. The following Plan of Care was established for this patient: Initial Frequency: 3x /Week Initial Duration: 4-6 Weeks Patient/Client Instruction: Educate patient on: Condition, Plan of Care For the Purpose of:: To decrease pain, To increase ROM, To improve muscle performance and motor function, To increase tolerance to activity/condition/position, To improve ability of physical actions for home/community/work/leisure Therapeutic Exercise to Include: Strength training, Postural training, Flexibilty training, In an aquatic setting, Passive ROM, Active ROM For the Purpose of:: To decrease pain, To increase ROM, To improve muscle performance and motor function, To increase tolerance to activity/condition/position, To improve ability of physical actions for home/community/work/leisure, To improve gait and locomotor functions This patient was last seen in our office 07/16/20. Pertinent comments regarding their Physical therapy will appear below: Pt seen two visits of POC in water and then no showed for the rest of his plan. at this pint, it has been over 6 weeks adn I will discontinue due to nonattendance. At this point I will be discontinuing this patient from physical therapy. I would be happy to see this patient again in the future if found appropriate by the physician. Thank you! Amos Underwood, DPT, OCS, CSCS
== END 2020-07-16 19:00 | disposition home or self-care (01) ==
LOC: PT 11:30
PROVIDERS: PCP Family Medicine Geriatric Medicine; Referring Provider Family Medicine Geriatric Medicine; Visit Provider Family Medicine Geriatric Medicine
DX: M54.9 Dorsalgia, unspecified (principal); M51.9 Unspecified thoracic, thoracolumbar and lumbosacral intervertebral disc disorder
CPT/HCPCS: 97113; 97162

== ENCOUNTER → 2020-09-08 14:06 | Outpatient (CLI) | payer OTHER, MEDICARE, SELFPAY ==
[2020-06-02 10:33] VITALS: BMI 35.4
[2020-09-08 17:07] LABS: Absolute Lymphocyte Count 2.14 X10^3/uL (0.83-4.51); Absolute Neutrophil Count 4.6 X10^3/uL (2.0-7.7); Basophil# 0.05 X10^3/uL; Basophil% 0.6 % (0-1); Eosinophil# 0.12 X10^3/uL; Eosinophils% 1.5 % (0-5); Hematocrit 47.7 % (40-54); Hemoglobin 15.5 g/dL (13.0-16.5); Lymphocyte # 2.14 X10^3/ul (4.0); Lymphocyte % 27.4 % (19-41); Mean Corp Hgb Conc 32.5 g/dL (32-36); Mean Corpuscular Hgb 28.9 pg (27.0-32.0); Mean Platelet Vol. 11.6 fl (6.2-12.0); Monocyte# 0.88 X10^3/uL; Monocyte% 11.3 % (0-10); NRBC Flagged by Analyzer 0 % (0-5); Neutrophil # 4.61 X10^3/uL (2.7-7.7); Neutrophil % 58.9 % (47-70); Platelet Count 213 K/mm3 (150-450); RBC Distribution Width CV 13.4 % (11.6-14.6); RBC Distribution Width SD 43.8 fl (35.1-43.9); Red Blood Count 5.36 M/mm3 (4.6-6.2); White Blood Count 7.8 K/mm3 (4.4-11.0)
[2020-09-08 17:18] LABS: Vitamin D,25 Hydroxy 9.3 ng/mL
[2020-09-08 17:28] LABS: ALB/GLOB Ratio 1.2 RATIO (0.9-2.4); AST(SGOT) 23 U/L (15-37); Alanine Aminotransfer ALT/SGPT 59 U/L (16-61); Albumin, Serum 4.2 g/dL (3.2-5.0); Alkaline Phosphatase 61 U/L (45-117); Anion Gap 6 (5-15); BUN 19 mg/dL (7-18); BUN/Creat Ratio 19.9 RATIO (10-20); Calcium,Total 8.9 mg/dL (8.5-10.1); Chloride 106 mmol/L (98-107); Creatinine, Serum 0.95 mg/dL (0.70-1.30); EST Glomerular Filtration Rate 83 mL/min (>60); Est Glom Filt Rate - Afr Amer 101 mL/min (>60); Globulin 3.5 g/dL (2.2-4.2); Glucose 69 mg/dL (74-106); Potassium 4.4 mmol/L (3.5-5.1); Protein, Total 7.7 g/dL (6.4-8.2); Sodium Level 138 mmol/L (136-145); Thyroid Stim Hormone (TSH) 0.81 uIU/mL (0.358-3.74)
== END ==
PROVIDERS: PCP Family Medicine Geriatric Medicine; Visit Provider Family Medicine Geriatric Medicine
DX: E55.9 Vitamin D deficiency, unspecified (principal); I10 Essential (primary) hypertension
CPT/HCPCS: 36415; 80053; 82306; 84443; 85025

== ENCOUNTER → 2020-12-07 15:52 | Outpatient (CLI) | payer OTHER, MEDICARE, SELFPAY ==
[2020-06-02 10:33] VITALS: BMI 35.4
--- NOTE | 2020-12-07 16:00 | RAD_ITS ---
STUDY: X-RAY - CERVICAL SPINE REASON FOR EXAM: Male, 70 years old. CERVICAL RADICULOPATHY TECHNIQUE: 3 view(s) of the cervical spine were obtained. COMPARISON: None FINDINGS: Normal anterior atlantoaxial articulation. Normal odontoid process. There is straightening of the normal cervical lordosis. There is multi-level endplate spondylosis. There is multi-level degenerative disc disease with multilevel disc space narrowing. Normal visualized intervertebral neuroforamina. The soft tissue structures are unremarkable. RAD/Cerv Spine 2 or 3 Views IMPRESSION: Straightening of the normal lumbar lordosis. Multilevel disc space narrowing and spondylosis. Electronically Signed: Loco Mcfarlane MD at 8:48 EDT , Service support ,
== END ==
PROVIDERS: PCP Family Medicine Geriatric Medicine; Referring Provider Family Medicine Geriatric Medicine; Visit Provider Family Medicine Geriatric Medicine
DX: G54.2 Cervical root disorders, not elsewhere classified (principal)
CPT/HCPCS: 72040

== ENCOUNTER → 2020-12-08 10:32 | Outpatient (CLI) | payer MEDICARE, SELFPAY ==
[2020-06-02 10:33] VITALS: BMI 35.4
== END ==
PROVIDERS: PCP Family Medicine Geriatric Medicine; Visit Provider Family Medicine Geriatric Medicine
DX: E03.9 Hypothyroidism, unspecified (principal)

== ENCOUNTER → 2020-12-08 10:33 | Outpatient (CLI) | payer OTHER, MEDICARE, SELFPAY ==
[2020-06-02 10:33] VITALS: BMI 35.4
--- NOTE | 2020-12-08 09:20 | LES_PTH ---
PATIENT: SUNITA TOTH LOC: [id number] U#:[id number] AGE/SX: 74/M ROOM: RE12/08/[address]: Dr. Silverio Sandoval MD : 1950 BED: DIS: SPEC #: [id number] RECD: 12/08/20 12:11 STATUS: NATACHA REBEL #: [id number] BALA: 12/08/20 09:[address]: Silverio Sandoval Chi DEPT: SURGICAL PATHOLOGY RECD BY: Eladia Kenny Tissues: Skin of lip, NOS Procedures: Surgery Specimen Level IV HEADER OPERATION: Lip lesion, shave biopsy PRE-OP DIAGNOSIS: Lip lesion TISSUE SUBMITTED: Lip lesion MICROSCOPIC DIAGNOSIS Lip lesion, shave biopsy: Benign vascular proliferation, consistent with capillary hemangioma. Acute keratosis with minimal atypia. See comment. YAZMIN:herlinda 12/09/2020 COMMENT Correlation with clinical findings and appropriate follow up are necessary. MICROSCOPIC DESCRIPTION Slides are reviewed. GROSS DESCRIPTION Received in fixative is one container labeled with the patient's name and designated lip. The specimen consists of one irregular fragment of light oliver soft tissue that measures 0.2 x 0.2 x <0.1 cm. The specimen is totally submitted in one cassette. / AM:herlinda 12/08/20 TC:1 CPT: 72212
[2020-12-08 12:35] LABS: Absolute Lymphocyte Count 0.86 X10^3/uL (0.83-4.51); Absolute Neutrophil Count 9.3 X10^3/uL (2.0-7.7); Basophil# 0.01 X10^3/uL; Basophil% 0.1 % (0-1); Hematocrit 46.6 % (40-54); Hemoglobin 15.2 g/dL (13.0-16.5); Lymphocyte # 0.86 X10^3/ul (0.83-4.51); Lymphocyte % 8.2 % (19-41); Mean Corp Hgb Conc 32.6 g/dL (32-36); Mean Corpuscular Hgb 29.1 pg (27.0-32.0); Mean Corpuscular Volume 89.1 fL (80-94); Mean Platelet Vol. 11.9 fl (6.2-12.0); Monocyte% 2.8 % (0-10); NRBC Flagged by Analyzer 0 % (0-5); Neutrophil # 9.33 X10^3/uL (2.7-7.7); Neutrophil % 88.4 % (47-70); Platelet Count 219 K/mm3 (150-450); RBC Distribution Width CV 13.2 % (11.6-14.6); RBC Distribution Width SD 43.6 fl (35.1-43.9); Red Blood Count 5.23 M/mm3 (4.6-6.2); White Blood Count 10.6 K/mm3 (4.4-11.0)
[2020-12-08 12:37] LABS: Vitamin D,25 Hydroxy 17.9 ng/mL
[2020-12-08 12:50] LABS: ALB/GLOB Ratio 1.3 RATIO (0.9-2.4); AST(SGOT) 25 U/L (15-37); Alanine Aminotransfer ALT/SGPT 45 U/L (16-61); Albumin, Serum 4.4 g/dL (3.2-5.0); Alkaline Phosphatase 53 U/L (45-117); Anion Gap 8 (5-15); BUN 21 mg/dL (7-18); BUN/Creat Ratio 20.4 RATIO (10-20); Chloride 105 mmol/L (98-107); Creatinine, Serum 1.03 mg/dL (0.70-1.30); EST Glomerular Filtration Rate 76 mL/min (>60); Est Glom Filt Rate - Afr Amer 92 mL/min (>60); Globulin 3.3 g/dL (2.2-4.2); Glucose 145 mg/dL (74-106); Potassium 4.3 mmol/L (3.5-5.1); Protein, Total 7.7 g/dL (6.4-8.2); Sodium Level 137 mmol/L (136-145); Thyroid Stim Hormone (TSH) 0.08 uIU/mL (0.358-3.74)
[2020-12-09 10:52] LABS: Hemoglobin A1c 5.7 % (3.8-5.6)
== END ==
PROVIDERS: PCP Family Medicine Geriatric Medicine; Visit Provider Family Medicine Geriatric Medicine
DX: E55.9 Vitamin D deficiency, unspecified (principal); I10 Essential (primary) hypertension; R73.9 Hyperglycemia, unspecified
CPT/HCPCS: 36415; 80053; 82306; 83036; 84443; 85025; 88305

== ENCOUNTER → 2021-03-02 16:20 | Outpatient (CLI) | payer OTHER, MEDICARE, SELFPAY ==
--- NOTE | 2021-03-02 16:26 | RAD_ITS ---
STUDY: X-RAY CHEST REASON FOR EXAM: Male, 70 years old. SOB TECHNIQUE: PA and lateral chest radiographs COMPARISON: 01/31/2020 FINDINGS: The lungs are clear and expanded. There is no demonstrated pleural abnormality. Normal size heart. Normal mediastinum and jorge. Normal visualized pulmonary arteries. Normal visualized aortic arch and descending thoracic aorta. There are diffuse degenerative changes of the visualized thoracic spine. Normal visualized ribs, clavicles, and shoulders. Right upper quadrant surgical clips. Partially visualized lumbar spine instrumented fusion. RAD/Chest PA and Lateral IMPRESSION: No acute abnormal cardiopulmonary finding. Electronically Signed: Robe Soria MD at 7:55 EDT Tel , Service support ,
[2021-03-02 17:47] LABS: Absolute Neutrophil Count 4.8 X10^3/uL (2.0-7.7); Basophil# 0.04 X10^3/uL; Basophil% 0.5 % (0-1); Eosinophil# 0.08 X10^3/uL; Eosinophils% 1.1 % (0-5); Hematocrit 53.4 % (40-54); Hemoglobin 17.6 g/dL (13.0-16.5); Lymphocyte % 24.5 % (19-41); Mean Corpuscular Hgb 30.3 pg (27.0-32.0); Mean Corpuscular Volume 91.9 fL (80-94); Mean Platelet Vol. 11.2 fl (6.2-12.0); Monocyte# 0.61 X10^3/uL; Monocyte% 8.3 % (0-10); NRBC Flagged by Analyzer 0 % (0-5); Neutrophil # 4.82 X10^3/uL (2.7-7.7); Neutrophil % 65.5 % (47-70); Platelet Count 188 K/mm3 (150-450); RBC Distribution Width CV 13.4 % (11.6-14.6); RBC Distribution Width SD 45.6 fl (35.1-43.9); Red Blood Count 5.81 M/mm3 (4.6-6.2); White Blood Count 7.4 K/mm3 (4.4-11.0)
[2021-03-02 18:09] LABS: ALB/GLOB Ratio 1.1 RATIO (0.9-2.4); AST(SGOT) 17 U/L (15-37); Alanine Aminotransfer ALT/SGPT 41 U/L (16-61); Alkaline Phosphatase 44 U/L (45-117); Anion Gap 3 (5-15); BUN 14 mg/dL (7-18); BUN/Creat Ratio 14.8 RATIO (10-20); Calcium,Total 8.2 mg/dL (8.5-10.1); Chloride 105 mmol/L (98-107); Creatinine, Serum 0.95 mg/dL (0.70-1.30); EST Glomerular Filtration Rate 83 mL/min (>60); Est Glom Filt Rate - Afr Amer 101 mL/min (>60); Globulin 3.5 g/dL (2.2-4.2); Glucose 83 mg/dL (74-106); Potassium 4.4 mmol/L (3.5-5.1); Protein, Total 7.5 g/dL (6.4-8.2); Sodium Level 136 mmol/L (136-145); Thyroid Stim Hormone (TSH) 0.12 uIU/mL (0.358-3.74)
== END ==
PROVIDERS: PCP Family Medicine Geriatric Medicine; Referring Provider Family Medicine Geriatric Medicine; Visit Provider Family Medicine Geriatric Medicine
DX: R06.02 Shortness of breath (principal); R53.83 Other fatigue
CPT/HCPCS: 36415; 71046; 80053; 84443; 85025

== ENCOUNTER → 2021-03-03 13:36 | Outpatient (CLI) | payer OTHER, MEDICARE, SELFPAY ==
[2020-06-02 10:33] VITALS: BMI 35.4
== END ==
PROVIDERS: PCP Family Medicine Geriatric Medicine; Referring Provider Family Medicine Geriatric Medicine; Visit Provider Family Medicine Geriatric Medicine
DX: R20.2 Paresthesia of skin (principal)

== ENCOUNTER → 2021-03-08 08:26 | Outpatient (CLI) | payer OTHER, MEDICARE, SELFPAY | PROVIDERS: PCP Family Medicine Geriatric Medicine; Referring Provider Family Medicine Geriatric Medicine; Visit Provider Family Medicine Geriatric Medicine | DX: R06.89 Other abnormalities of breathing (principal) | CPT/HCPCS: 87633; 87635; 87804; C9803; U0005; U0003 ==

== ENCOUNTER → 2021-03-08 15:59 | Outpatient (CLI) | payer OTHER, MEDICARE, SELFPAY ==
[2021-03-08 16:46] LABS: Absolute Lymphocyte Count 2.01 X10^3/uL (0.83-4.51); Absolute Neutrophil Count 4.4 X10^3/uL (2.0-7.7); Basophil# 0.06 X10^3/uL; Basophil% 0.8 % (0-1); Eosinophil# 0.13 X10^3/uL; Eosinophils% 1.8 % (0-5); Hematocrit 52.6 % (40-54); Hemoglobin 17.4 g/dL (13.0-16.5); Lymphocyte # 2.01 X10^3/ul (0.83-4.51); Lymphocyte % 27.7 % (19-41); Mean Corp Hgb Conc 33.1 g/dL (32-36); Mean Corpuscular Hgb 30.1 pg (27.0-32.0); Mean Platelet Vol. 11.1 fl (6.2-12.0); Monocyte# 0.63 X10^3/uL; Monocyte% 8.7 % (0-10); NRBC Flagged by Analyzer 0 % (0-5); Neutrophil # 4.41 X10^3/uL (2.7-7.7); Neutrophil % 60.7 % (47-70); Platelet Count 197 K/mm3 (150-450); RBC Distribution Width CV 13.5 % (11.6-14.6); RBC Distribution Width SD 45.4 fl (35.1-43.9); Red Blood Count 5.78 M/mm3 (4.6-6.2); White Blood Count 7.3 K/mm3 (4.4-11.0)
[2021-03-08 17:31] LABS: Vitamin D,25 Hydroxy 16.8 ng/mL
[2021-03-08 17:39] LABS: ALB/GLOB Ratio 1.2 RATIO (0.9-2.4); AST(SGOT) 17 U/L (15-37); Alanine Aminotransfer ALT/SGPT 38 U/L (16-61); Alkaline Phosphatase 43 U/L (45-117); Anion Gap 7 (5-15); BUN 11 mg/dL (7-18); BUN/Creat Ratio 12.4 RATIO (10-20); Calcium,Total 9.1 mg/dL (8.5-10.1); Chloride 107 mmol/L (98-107); Creatinine, Serum 0.89 mg/dL (0.70-1.30); EST Glomerular Filtration Rate 90 mL/min (>60); Est Glom Filt Rate - Afr Amer 109 mL/min (>60); Globulin 3.4 g/dL (2.2-4.2); Glucose 93 mg/dL (74-106); Potassium 4.1 mmol/L (3.5-5.1); Protein, Total 7.4 g/dL (6.4-8.2); Sodium Level 139 mmol/L (136-145); Thyroid Stim Hormone (TSH) 0.11 uIU/mL (0.358-3.74)
== END ==
PROVIDERS: PCP Family Medicine Geriatric Medicine; Visit Provider Family Medicine Geriatric Medicine
DX: I10 Essential (primary) hypertension (principal); E23.6 Other disorders of pituitary gland; E55.9 Vitamin D deficiency, unspecified; R06.89 Other abnormalities of breathing
CPT/HCPCS: 36415; 80053; 82306; 84403; 84443; 85025; 87633; 87635; C9803; U0003; U0005

== ENCOUNTER → 2021-06-09 11:59 | Outpatient (CLI) | payer OTHER, MEDICARE, SELFPAY ==
[2021-06-09 12:29] LABS: Absolute Lymphocyte Count 2.22 X10^3/uL (0.83-4.51); Absolute Neutrophil Count 3.6 X10^3/uL (2.0-7.7); Basophil# 0.05 X10^3/uL; Basophil% 0.8 % (0-1); Eosinophil# 0.11 X10^3/uL; Eosinophils% 1.7 % (0-5); Hematocrit 54.8 % (40-54); Hemoglobin 18.6 g/dL (13.0-16.5); Lymphocyte # 2.22 X10^3/ul (0.83-4.51); Lymphocyte % 34.2 % (19-41); Mean Corp Hgb Conc 33.9 g/dL (32-36); Mean Corpuscular Hgb 30.2 pg (27.0-32.0); Mean Corpuscular Volume 89.1 fL (80-94); Mean Platelet Vol. 10.8 fl (6.2-12.0); Monocyte# 0.52 X10^3/uL; NRBC Flagged by Analyzer 0 % (0-5); Neutrophil # 3.58 X10^3/uL (2.7-7.7); Platelet Count 193 K/mm3 (150-450); RBC Distribution Width CV 14.2 % (11.6-14.6); RBC Distribution Width SD 45.7 fl (35.1-43.9); Red Blood Count 6.15 M/mm3 (4.6-6.2); White Blood Count 6.5 K/mm3 (4.4-11.0)
[2021-06-09 12:54] LABS: ALB/GLOB Ratio 1.2 RATIO (0.9-2.4); AST(SGOT) 19 U/L (15-37); Alanine Aminotransfer ALT/SGPT 34 U/L (16-61); Alkaline Phosphatase 50 U/L (45-117); Anion Gap 3 (5-15); BUN 11 mg/dL (7-18); BUN/Creat Ratio 10.8 RATIO (10-20); Calcium,Total 9.2 mg/dL (8.5-10.1); Chloride 106 mmol/L (98-107); Creatinine, Serum 1.02 mg/dL (0.70-1.30); EST Glomerular Filtration Rate 77 mL/min (>60); Est Glom Filt Rate - Afr Amer 93 mL/min (>60); Globulin 3.4 g/dL (2.2-4.2); Glucose 99 mg/dL (74-106); PSA,Total - Annual Screen 0.98 ng/mL (0.00-4.00); Potassium 4.7 mmol/L (3.5-5.1); Protein, Total 7.4 g/dL (6.4-8.2); Sodium Level 139 mmol/L (136-145); Thyroid Stim Hormone (TSH) 1.08 uIU/mL (0.358-3.74)
[2021-06-09 14:41] LABS: Pathologist Review Reviewed
== END ==
PROVIDERS: PCP Family Medicine Geriatric Medicine; Visit Provider Family Medicine Geriatric Medicine
DX: E23.6 Other disorders of pituitary gland (principal); E55.9 Vitamin D deficiency, unspecified; I10 Essential (primary) hypertension; Z12.5 Encounter for screening for malignant neoplasm of prostate
CPT/HCPCS: 36415; 80053; 84153; 84403; 84443; 85025; G0103

== ENCOUNTER 2021-07-12 13:30 | Outpatient (CLI) | payer MEDICARE, SELFPAY ==
[2021-07-12 16:42] LABS: Absolute Lymphocyte Count 2.04 X10^3/uL (0.83-4.51); Absolute Neutrophil Count 4.6 X10^3/uL (2.0-7.7); Basophil# 0.05 X10^3/uL; Basophil% 0.7 % (0-1); Eosinophil# 0.11 X10^3/uL; Eosinophils% 1.5 % (0-5); Lymphocyte # 2.04 X10^3/ul (0.83-4.51); Lymphocyte % 27.1 % (19-41); Mean Corp Hgb Conc 32.7 g/dL (32-36); Mean Corpuscular Hgb 29.8 pg (27.0-32.0); Mean Corpuscular Volume 91.1 fL (80-94); Monocyte# 0.71 X10^3/uL; Monocyte% 9.4 % (0-10); NRBC Flagged by Analyzer 0 % (0-5); Neutrophil # 4.61 X10^3/uL (2.7-7.7); Platelet Count 213 K/mm3 (150-450); RBC Distribution Width CV 14.5 % (11.6-14.6); RBC Distribution Width SD 47.8 fl (35.1-43.9); Red Blood Count 6.18 M/mm3 (4.6-6.2); White Blood Count 7.5 K/mm3 (4.4-11.0)
[2021-07-12 16:44] LABS: Hematocrit 56.3 % (40-54)
[2021-07-12 16:45] LABS: Hemoglobin 18.4 g/dL (13.0-16.5)
[2021-07-13 14:03] LABS: Pathologist Review Reviewed
== END 2021-07-12 23:59 | disposition short-term general hospital (02) ==
LOC: POLAB3 13:32
PROVIDERS: PCP Family Medicine Geriatric Medicine; Visit Provider Family Medicine Geriatric Medicine
DX: D45 Polycythemia vera (principal)
CPT/HCPCS: 36415; 85025

== ENCOUNTER → 2021-12-13 | Outpatient (CLI) | payer MEDICARE, SELFPAY ==
[2021-12-13 12:51] LABS: Vitamin D,25 Hydroxy 24.5 ng/mL
[2021-12-13 12:52] LABS: Absolute Lymphocyte Count 2.43 X10^3/uL (0.83-4.51); Absolute Neutrophil Count 2.5 X10^3/uL (2.0-7.7); Basophil# 0.05 X10^3/uL; Basophil% 0.9 % (0-1); Eosinophil# 0.12 X10^3/uL; Eosinophils% 2.2 % (0-5); Hematocrit 49.8 % (40-54); Hemoglobin 16.8 g/dL (13.0-16.5); Lymphocyte # 2.43 X10^3/ul (0.83-4.51); Lymphocyte % 43.8 % (19-41); Mean Corp Hgb Conc 33.7 g/dL (32-36); Mean Corpuscular Hgb 30.2 pg (27.0-32.0); Mean Corpuscular Volume 89.4 fL (80-94); Mean Platelet Vol. 11.6 fl (6.2-12.0); Monocyte# 0.49 X10^3/uL; Monocyte% 8.8 % (0-10); NRBC Flagged by Analyzer 0 % (0-5); Neutrophil # 2.46 X10^3/uL (2.7-7.7); Neutrophil % 44.3 % (47-70); Platelet Count 210 K/mm3 (150-450); RBC Distribution Width CV 13.4 % (11.6-14.6); RBC Distribution Width SD 43.6 fl (35.1-43.9); Red Blood Count 5.57 M/mm3 (4.6-6.2); White Blood Count 5.6 K/mm3 (4.4-11.0)
[2021-12-13 13:50] LABS: ALB/GLOB Ratio 1.3 RATIO (0.9-2.4); AST(SGOT) 27 U/L (15-37); Alanine Aminotransfer ALT/SGPT 69 U/L (16-61); Albumin, Serum 4.3 g/dL (3.2-5.0); Alkaline Phosphatase 49 U/L (45-117); Anion Gap 8 (5-15); BUN 18 mg/dL (7-18); BUN/Creat Ratio 17.6 RATIO (10-20); Calcium,Total 9.3 mg/dL (8.5-10.1); Chloride 107 mmol/L (98-107); Creatinine, Serum 1.02 mg/dL (0.70-1.30); EST Glomerular Filtration Rate 77 mL/min (>60); Est Glom Filt Rate - Afr Amer 93 mL/min (>60); Globulin 3.4 g/dL (2.2-4.2); Glucose 112 mg/dL (74-106); Potassium 5.3 mmol/L (3.5-5.1); Protein, Total 7.7 g/dL (6.4-8.2); Sodium Level 139 mmol/L (136-145); Thyroid Stim Hormone (TSH) 0.13 uIU/mL (0.358-3.74)
== END | disposition home or self-care (01) ==
LOC: POLAB3 09:05
PROVIDERS: PCP Family Medicine Geriatric Medicine; Visit Provider Family Medicine Geriatric Medicine
DX: I10 Essential (primary) hypertension (principal); E55.9 Vitamin D deficiency, unspecified
CPT/HCPCS: 36415; 80053; 82306; 84443; 85025

== ENCOUNTER → 2021-12-21 | Outpatient (CLI) | payer MEDICARE, SELFPAY ==
[2021-12-21 12:30] LABS: Anion Gap 6 (5-15); BUN 16 mg/dL (7-18); BUN/Creat Ratio 16.6 RATIO (10-20); Calcium,Total 8.6 mg/dL (8.5-10.1); Chloride 102 mmol/L (98-107); Creatinine, Serum 0.96 mg/dL (0.70-1.30); EST Glomerular Filtration Rate 82 mL/min (>60); Est Glom Filt Rate - Afr Amer 99 mL/min (>60); Glucose 108 mg/dL (74-106); Potassium 4.5 mmol/L (3.5-5.1); Sodium Level 135 mmol/L (136-145)
== END | disposition home or self-care (01) ==
PROVIDERS: PCP Family Medicine Geriatric Medicine; Visit Provider Family Medicine Geriatric Medicine
DX: E87.5 Hyperkalemia (principal)
CPT/HCPCS: 36415; 80048

== ENCOUNTER 2022-01-07 11:20 | Emergency (ER) | payer MEDICARE, SELFPAY ==
[2022-01-07 11:20] VITALS: BP 174/84; PULSE 63; RESP 15; TEMP 36.5; O2SAT 96; BMI 34.2
--- NOTE | 2022-01-07 11:23 | EKG12_ITS ---
Test Reason : SIEZURE Blood Pressure : / mmHG Vent. Rate : 057 BPM Atrial Rate : 057 BPM P-R Int : 174 ms QRS Dur : 094 ms QT Int : 428 ms P-R-T Axes : 046 025 044 degrees QTc Int : 416 ms Sinus bradycardia with Premature atrial complexes Otherwise normal ECG Confirmed by ESTELITA CHATMAN, JERONIMO ([id number]), city editor DEBORAH STAUFFER ([id number]) on 01/10/2022 11:26:37 AM Referred By: CHING Confirmed By:JERONIMO CAPONE MD
--- NOTE | 2022-01-07 11:30 | EDS_ITS ---
HPI History of Present Illness Chief Complaint: Alt LOC Informant: patient and other Narrative Narrative: Patient presents as a rapid response from radiology. Patient reportedly fell 2 days ago and hit his head. He is complaining of headache and neck pain. He was seen by his PCP this morning. He had injections of Kenalog, Solu-Medrol, Toradol, and Norflex. He was sent to radiology for a CT scan of his head and a C-spine x-ray. He had completed his head CT but while standing for his C-spine x-ray became unresponsive. He never fell to the ground. He suddenly became alert and was lowered to a cot. He had another episode of unresponsiveness. is now at bedside and states that he has these episodes that are consistent with nonepileptic form seizures. He has had extensive work-ups through the [facility] for this. She states that he felt these coming on about a week ago. [facility] Medical History Back pain Chronic pain Fatigue HTN (hypertension) Hypothyroidism Migraines Sarcoma of right lower extremity Home Medications desmopressin 0.1 mg tablet 0.2 mg PO BID urinary 11/04/17 [History Last Taken 01/31/20] ibuprofen 600 mg tablet 600 mg PO TID PRN pain #30 tabs 05/07/19 [Rx Last Taken 01/31/20] gabapentin 800 mg tablet 400 mg PO TID #90 tabs 06/02/20 [Rx Last Taken Unknown] lisinopril 10 mg tablet 10 mg PO DAILY #90 tabs 04/28/21 [Rx Last Taken Unknown] amlodipine 10 mg tablet 10 mg PO DAILY #90 tabs 05/26/21 [Rx Last Taken Unknown] citalopram 20 mg tablet 20 mg PO DAILY 07/22/21 [History Last Taken Unknown] testosterone IM 08/02/21 [History Last Taken Unknown] levothyroxine 125 mcg tablet 137 mcg PO DAILY thyroid 01/07/22 [History Last Taken Unknown] Allergy/AdvReac Type Severity Reaction Status Date / Time No Known Allergies Allergy Verified 01/07/22 11:23 Family History Father Heart disease Mother Diabetes Brother Diabetes Surgical History History of back surgery History of cranial surgery History of knee replacement History of orthopedic surgery History of shoulder surgery history of skin graph Social History Smoking Status: Former smoker alcohol intake: current alcohol intake frequency: holidays/special occasions only substance use type: marijuana caffeine: No what type of physical activity do you participate in: none ROS ROS ED Constitutional Constitutional ED: Denies chills or fever(s) Eyes Eyes: Denies change in vision or discharge from eye(s) ENT ENT ED: Denies discharge from eye(s), rhinorrhea or sore throat Cardiovascular Cardiovascular: Denies chest pain or palpitations Respiratory/Chest Respiratory/Chest: Denies cough or dyspnea Gastrointestinal Gastrointestinal: Denies abdominal pain, diarrhea, nausea or vomiting Genitourinary Genitourinary ED: Denies dysuria Musculoskeletal Musculoskeletal: Reports neck pain; Denies back pain or extremity pain Integumentary Denies Abrasions or rash Neurologic Neurologic: Reports headache(s); Denies weakness Endocrine Endocrinology: Denies polydipsia or polyuria Allergic/Immunologic Allergic/Immunologic ED: Denies lip swelling or urticaria EXAM Physical Exam Narrative Exam Narrative: Patient with intermittent periods of unresponsiveness. No tonic-clonic seizure activity noted. Patient awakens briskly from his episodes with no postictal period. Const Vital Signs: 01/07/22 11:20 01/07/22 11:40 01/07/22 13:54 Temperature 97.7 F L 98.0 F Temperature Source Temporal Temporal Pulse Rate 63 61 Respiratory Rate 15 18 Respiratory Pattern Normal Blood Pressure 174/84 H 125/59 H Blood Pressure Mean 114 81 Pulse Ox 96 97 Oxygen Delivery Method Room Air Room Air 01/07/22 13:54 01/07/22 14:31 01/07/22 16:30 Temperature 98.0 F Temperature Source Pulse Rate 61 60 59 L Respiratory Rate 18 14 14 Respiratory Pattern Blood Pressure 125/59 H 133/71 H 125/74 H Blood Pressure Mean 81 91 91 Pulse Ox 97 94 93 Oxygen Delivery Method Room Air Room Air 01/07/22 18:02 Temperature Temperature Source Pulse Rate 64 Respiratory Rate 17 Respiratory Pattern Blood Pressure 141/80 H Blood Pressure Mean 100 Pulse Ox 96 Oxygen Delivery Method Room Air Positive well nourished and well developed General Appearance ED: well developed HEENT Reports moist mucous membranes Eyes PERRL and EOMs intact bilaterally Chest Wall inspection of chest normal and palpation of chest normal Resp normal respiratory effort and clear to auscultation bilaterally Cardio regular rate and regular rhythm GI normal to inspection, nondistended, normoactive bowel sounds and non-tender Palpation: soft Extremity normal to inspection Neuro Neuro Narrative: A&O x2. No focal neurologic deficits. Skin no rashes or lesions noted MDM MDM MDM Narrative Medical decision making narrative: EKG, lab work, CT scan of the C-spine was obtained. CT of the head obtained earlier today was read as chronic changes. Lab Data Attestation: I reviewed the patient's lab results. Labs: Laboratory Results - last 24 hr 01/07/22 01/07/22 11:30 11:30 WBC 6.8 RBC 5.63 Hgb 16.8 H Hct 50.5 MCV 89.7 MCH 29.8 MCHC 33.3 RDW Std Deviation 45.0 H RDW Coeff of Nicole 13.7 Plt Count 171 MPV 10.9 Immature Gran % (Auto) 1.300 H Neut % (Auto) 52.9 Lymph % (Auto) 26.1 Beauregard % (Auto) 17.9 H Eos % (Auto) 1.2 Baso % (Auto) 0.6 Absolute Neuts (auto) 3.6 Absolute Lymphs (auto) 1.78 Nucleated RBC % 0 Sodium 134 L Potassium 4.4 Chloride 101 Carbon Dioxide 26.0 Anion Gap 7 BUN 19 H Creatinine 1.03 Estim Creat Clear Calc 65.78 Est GFR (MDRD) Af Amer 92 Est GFR (MDRD) Non-Af 76 BUN/Creatinine Ratio 18.4 Glucose 86 Calcium 9.2 Radiography Diagnostic Testing: Clinical Impression(s) from Imaging Studies Cervical Spine CT 01/07/22 11:36 IMPRESSION: Multilevel degenerative changes, as described above. Electronically Signed: Loco Mcfarlane MD at 12:50 EDT , Treatment and Re-Evaluation Narrative: Patient's lab work is largely unremarkable. Patient continued to have repeated episodes of unresponsiveness. states he is never had this many episodes in the past. He is also confused and try to get out of bed between episodes and she states that is not typical for him. Shortly after returning from CT scan patient did get up out of bed admitted to the hallway where he fell. He was placed back in bed. He complains of continued headache but no different from prior. Patient was given 0.[address] of the C-spine shows degenerative changes. With patient having more episodes than normal I did discuss transfer to a facility where continuous EEG could be performed to ensure that he is not truly having epileptiform seizures at this time since this is not his typical baseline. Patient has been accepted at [facility]. COVID test obtained for transfer and does return positive. Addendum: After receiving Ativan patient was able to take a nap. He woke up feeling much improved. He has had no further episodes since that time. He has been observed for the last 7-1/2 hours without further episodes. He is tolerating p.o. without difficulty and states he feels completely back to his normal self. He states that he has been through multiple work-ups for these episodes and the EEG never shows anything. He does not want to go to [place] if he does not have to. at bedside states that she feels that he is back to his baseline and is comfortable caring for him at home. He will be discharged at this time with instructions to return if there are any concerns or abnormal behavior. Discharge Plan Triage Chief Complaint: Alt LOC ED Provider: Gloria Clay Dx/Rx/DC Orders Clinical Impression: Recurrent episodes of unresponsiveness, Psychogenic nonepileptic seizure, COVID-19 Instructions: Coronavirus Disease 2019 (COVID-19): Overview, Coronavirus Disease 2019 (COVID-19): Caring for Yourself or Others, ED Confusion, ED Conversion Disdr Conversion Reac Prescriptions: No Action ibuprofen 600 mg tablet 600 mg PO TID PRN (Reason: pain) Qty: 30 0RF Rx Instructions: take with food gabapentin 800 mg tablet 400 mg PO TID Qty: 90 2RF Label Comments: just increased from 600 mg BID yesterday takes for nerve damage citalopram 20 mg tablet 20 mg PO DAILY testosterone IM Label Comments: Injection per patient; dose unknown desmopressin 0.1 MG tablet 0.2 mg PO BID levothyroxine 125 mcg tablet 137 mcg PO DAILY lisinopril 10 mg tablet 10 mg PO DAILY Qty: 90 2RF Label Comments: takes for BP amlodipine 10 mg tablet 10 mg PO DAILY Qty: 90 3RF Primary Care Provider: Silverio Sandoval Chi Referrals: Silverio Sandoval Chi, MD [Primary Care Provider] - 1-2 Weeks Disposition Disposition: Home, Self Care Discharge Location: [facility]
--- NOTE | 2022-01-07 11:36 | CT_ITS ---
STUDY: CT CERVICAL SPINE WITHOUT CONTRAST REASON FOR EXAM: Male, 71 years old. Fall, pain RADIATION DOSAGE (If Supplied By Facility): CTDIvol = ( 27.01 ) mGy, DLP = ( 684.02 ) mGycm TECHNIQUE: High resolution transaxial imaging was performed without contrast material. Sagittal and coronal images were reconstructed. Individualized dose optimization techniques were used for this CT. COMPARISON: None FINDINGS: Normal craniovertebral junction. There are degenerative changes of the anterior atlantoaxial articulation. Normal odontoid process. Normal cervical lordosis. Normal vertebral bodies and posterior osseous elements. C2-3: Anterior spondylosis. Facet joint osteoarthritis and hypertrophy more prominent on the left side. C3-4: Mild degree of disc space narrowing. Anterior spondylosis. Facet joint osteoarthritis and hypertrophy worse on the right side. C4-5: Marked degree of disc space narrowing. Spondylosis. Uncovertebral arthrosis. Bilateral neural foraminal stenosis worse on the right side. C5-6: Moderate degree of disc space narrowing. Spondylosis. Uncovertebral arthrosis. Marked degree of bilateral neural foraminal stenosis. C6-7: Marked degree of disc space narrowing. Spondylosis. Uncovertebral arthrosis. Marked degree of bilateral neural foraminal stenosis. C7-T1: Disc space narrowing and spondylosis. Normal visualized soft tissue structures. CT/Spine Cervical without Contras IMPRESSION: Multilevel degenerative changes, as described above. Electronically Signed: Loco Mcfarlane MD at 12:50 EDT ,
[2022-01-07] MEDS: 0.9% Normal Saline 1,000 ML 150 ML IV (11:49)
[2022-01-07 11:51] LABS: Anion Gap 7 (5-15); BUN 19 mg/dL (7-18); BUN/Creat Ratio 18.4 RATIO (10-20); Calcium,Total 9.2 mg/dL (8.5-10.1); Chloride 101 mmol/L (98-107); Creatinine, Serum 1.03 mg/dL (0.70-1.30); EST Glomerular Filtration Rate 76 mL/min (>60); Est Glom Filt Rate - Afr Amer 92 mL/min (>60); Estimated Creatinine Clearance 65.78 ml/min; Glucose 86 mg/dL (74-106); Potassium 4.4 mmol/L (3.5-5.1); Sodium Level 134 mmol/L (136-145)
[2022-01-07] MEDS: LORazepam 2 MG/ML Syringe 0.5 MG IV (12:01)
[2022-01-07 12:12] LABS: Absolute Lymphocyte Count 1.78 X10^3/uL (0.83-4.51); Absolute Neutrophil Count 3.6 X10^3/uL (2.0-7.7); Basophil# 0.04 X10^3/uL; Basophil% 0.6 % (0-1); Eosinophil# 0.08 X10^3/uL; Eosinophils% 1.2 % (0-5); Hematocrit 50.5 % (40-54); Hemoglobin 16.8 g/dL (13.0-16.5); Lymphocyte # 1.78 X10^3/ul (0.83-4.51); Lymphocyte % 26.1 % (19-41); Mean Corp Hgb Conc 33.3 g/dL (32-36); Mean Corpuscular Hgb 29.8 pg (27.0-32.0); Mean Corpuscular Volume 89.7 fL (80-94); Mean Platelet Vol. 10.9 fl (6.2-12.0); Monocyte# 1.22 X10^3/uL; Monocyte% 17.9 % (0-10); NRBC Flagged by Analyzer 0 % (0-5); Neutrophil % 52.9 % (47-70); Platelet Count 171 K/mm3 (150-450); RBC Distribution Width CV 13.7 % (11.6-14.6); Red Blood Count 5.63 M/mm3 (4.6-6.2); White Blood Count 6.8 K/mm3 (4.4-11.0)
[2022-01-07 13:54] VITALS: BP 125/59; PULSE 61; RESP 18; TEMP 36.7; O2SAT 97
[2022-01-07 14:31] VITALS: BP 133/71; PULSE 60; RESP 14; O2SAT 94
--- NOTE | 2022-01-07 14:59 | ED.RN ---
Patient AOx4. Cooperative at this time. Restraints removed. Dr. Lee notified.
[2022-01-07 16:30] VITALS: BP 125/74; PULSE 59; RESP 14; O2SAT 93
[2022-01-07 18:02] VITALS: BP 141/80; PULSE 64; RESP 17; O2SAT 96
[2022-01-07 19:35] VITALS: BP 133/80; PULSE 64; RESP 12; O2SAT 97
[2022-01-12 15:35] LABS: Bedside Glucose 82 mg/dL (74-106)
== END 2022-01-07 19:47 | disposition home or self-care (01) ==
PROVIDERS: Emergency Provider Emergency Medicine; PCP Family Medicine Geriatric Medicine; Visit Provider Emergency Medicine
DX: R40.4 Transient alteration of awareness (principal); F44.5 Conversion disorder with seizures or convulsions; U07.1 COVID-19; I10 Essential (primary) hypertension; E03.9 Hypothyroidism, unspecified; Z79.899 Other long term (current) drug therapy; Z87.891 Personal history of nicotine dependence
CPT/HCPCS: 70450; 72020; 72125; 80048; 82962; 85025; 87811; 93005; 96361; 96374; 99285; J7030; A4216

== ENCOUNTER → 2022-01-07 | Outpatient (CLI) | payer MEDICARE, SELFPAY ==
--- NOTE | 2022-01-07 11:02 | CT_ITS ---
STUDY: CT BRAIN WITHOUT CONTRAST REASON FOR EXAM: Male, 71 years old. UNSPECIFIED HEAD INJURY -- OK TO GO RADIATION DOSAGE (If Supplied By Facility): CTDIvol = ( 44.99 ) mGy, DLP = ( 829.85 ) mGycm TECHNIQUE: Transaxial CT imaging of the brain was performed without administration of intravenous contrast material. Individualized dose optimization techniques were used for this CT. COMPARISON: Comparison is made with prior study 02/01/2020. FINDINGS: Normal soft tissue structures. Normal calvarium. Normal size ventricles and extra-axial spaces for the patient''s age. Normal white matter tracts of the cerebral hemispheres. Normal basal ganglia and thalami. Normal brainstem. Normal cerebellum. There is no intracranial hemorrhage. There are no findings of an acute ischemic infarction. There is partial opacification of the ethmoid sinuses. CT/Brain/Head without Contrast IMPRESSION: Normal unenhanced CT scan of the brain. Partial opacification of the ethmoid sinuses. Electronically Signed: Loco Mcfarlane MD at 11:49 EDT ,
--- NOTE | 2022-01-07 11:10 | RAD_ITS ---
STUDY: X-RAY - CERVICAL SPINE REASON FOR EXAM: Male, 71 years old. NECK PAIN TECHNIQUE: 1 view(s) of the cervical spine were obtained. COMPARISON: Comparison is made with prior study dated 12/07/2020. FINDINGS: There are degenerative changes of the anterior atlantoaxial articulation. Normal odontoid process. There is straightening of the normal cervical lordosis. There is multi-level endplate spondylosis. There is multi-level degenerative disc disease with multilevel disc space narrowing. Normal visualized intervertebral neuroforamina. Calcification of the posterior nuchal ligament. RAD/Spine 1 View Any Level IMPRESSION: Straightening of the normal cervical lordosis. Multilevel spondylosis and disc space narrowing. Stable examination. Electronically Signed: Loco Mcfarlane MD at 14:33 EDT ,
== END | disposition home or self-care (01) ==
LOC: CT 10:59
PROVIDERS: PCP Family Medicine Geriatric Medicine; Referring Provider Family Medicine Geriatric Medicine; Visit Provider Family Medicine Geriatric Medicine
DX: M54.2 Cervicalgia (principal); S09.90XA Unspecified injury of head, initial encounter
CPT/HCPCS: 70450; 72020

== ENCOUNTER → 2022-04-06 | Outpatient (CLI) | payer MEDICARE, SELFPAY ==
[2022-04-06 17:26] LABS: Absolute Lymphocyte Count 1.88 X10^3/uL (0.83-4.51); Absolute Neutrophil Count 4.1 X10^3/uL (2.0-7.7); Basophil# 0.05 X10^3/uL; Basophil% 0.7 % (0-1); Eosinophil# 0.08 X10^3/uL; Eosinophils% 1.2 % (0-5); Hematocrit 51.2 % (40-54); Hemoglobin 17.2 g/dL (13.0-16.5); Lymphocyte # 1.88 X10^3/ul (0.83-4.51); Lymphocyte % 28.1 % (19-41); Mean Corp Hgb Conc 33.6 g/dL (32-36); Mean Corpuscular Hgb 30.6 pg (27.0-32.0); Mean Corpuscular Volume 90.9 fL (80-94); Mean Platelet Vol. 11.7 fl (6.2-12.0); Monocyte# 0.63 X10^3/uL; Monocyte% 9.4 % (0-10); NRBC Flagged by Analyzer 0 % (0-5); Neutrophil # 4.05 X10^3/uL (2.7-7.7); Neutrophil % 60.5 % (47-70); Platelet Count 181 K/mm3 (150-450); RBC Distribution Width CV 12.9 % (11.6-14.6); RBC Distribution Width SD 43.4 fl (35.1-43.9); Red Blood Count 5.63 M/mm3 (4.6-6.2); White Blood Count 6.7 K/mm3 (4.4-11.0)
[2022-04-06 18:13] LABS: ALB/GLOB Ratio 1.2 RATIO (0.9-2.4); AST(SGOT) 17 U/L (15-37); Alanine Aminotransfer ALT/SGPT 39 U/L (16-61); Albumin, Serum 4.3 g/dL (3.2-5.0); Alkaline Phosphatase 47 U/L (45-117); Anion Gap 9 (5-15); BUN 21 mg/dL (7-18); BUN/Creat Ratio 21.9 RATIO (10-20); Calcium,Total 9.4 mg/dL (8.5-10.1); Chloride 104 mmol/L (98-107); Creatinine, Serum 0.96 mg/dL (0.70-1.30); EST Glomerular Filtration Rate 82 mL/min (>60); Est Glom Filt Rate - Afr Amer 99 mL/min (>60); Globulin 3.5 g/dL (2.2-4.2); Glucose 92 mg/dL (74-106); Potassium 4.5 mmol/L (3.5-5.1); Protein, Total 7.8 g/dL (6.4-8.2); Sodium Level 136 mmol/L (136-145)
== END | disposition home or self-care (01) ==
LOC: POLAB3 15:41
PROVIDERS: PCP Family Medicine Geriatric Medicine; Visit Provider Family Medicine Geriatric Medicine
DX: R63.4 Abnormal weight loss (principal)
CPT/HCPCS: 36415; 80053; 84443; 85025

== ENCOUNTER → 2022-06-13 | Outpatient (CLI) | payer MEDICARE, SELFPAY ==
[2022-06-13 13:09] LABS: Absolute Lymphocyte Count 1.78 X10^3/uL (0.83-4.51); Absolute Neutrophil Count 2.8 X10^3/uL (2.0-7.7); Basophil# 0.04 X10^3/uL; Basophil% 0.8 % (0-1); Eosinophil# 0.09 X10^3/uL; Eosinophils% 1.7 % (0-5); Hematocrit 46.8 % (40-54); Hemoglobin 15.8 g/dL (13.0-16.5); Lymphocyte # 1.78 X10^3/ul (0.83-4.51); Lymphocyte % 33.4 % (19-41); Mean Corp Hgb Conc 33.8 g/dL (32-36); Mean Corpuscular Hgb 30.4 pg (27.0-32.0); Mean Platelet Vol. 11.8 fl (6.2-12.0); Monocyte# 0.63 X10^3/uL; Monocyte% 11.8 % (0-10); NRBC Flagged by Analyzer 0 % (0-5); Neutrophil # 2.78 X10^3/uL (2.7-7.7); Neutrophil % 52.1 % (47-70); Platelet Count 164 K/mm3 (150-450); RBC Distribution Width CV 12.6 % (11.6-14.6); RBC Distribution Width SD 41.5 fl (35.1-43.9); White Blood Count 5.3 K/mm3 (4.4-11.0)
[2022-06-13 13:24] LABS: Vitamin D,25 Hydroxy 23.2 ng/mL
[2022-06-13 13:35] LABS: ALB/GLOB Ratio 1.3 RATIO (0.9-2.4); AST(SGOT) 14 U/L (15-37); Alanine Aminotransfer ALT/SGPT 30 U/L (16-61); Albumin, Serum 3.8 g/dL (3.2-5.0); Alkaline Phosphatase 47 U/L (45-117); Anion Gap 3 (5-15); BUN 15 mg/dL (7-18); BUN/Creat Ratio 16.1 RATIO (10-20); Calcium,Total 8.7 mg/dL (8.5-10.1); Chloride 107 mmol/L (98-107); Creatinine, Serum 0.93 mg/dL (0.70-1.30); EST Glomerular Filtration Rate 85 mL/min (>60); Est Glom Filt Rate - Afr Amer 102 mL/min (>60); Globulin 2.9 g/dL (2.2-4.2); Glucose 101 mg/dL (74-106); Potassium 4.9 mmol/L (3.5-5.1); Protein, Total 6.7 g/dL (6.4-8.2); Sodium Level 139 mmol/L (136-145); Thyroid Stim Hormone (TSH) 0.07 uIU/mL (0.358-3.74)
== END | disposition home or self-care (01) ==
LOC: POLAB3 09:31
PROVIDERS: PCP Family Medicine Geriatric Medicine; Visit Provider Family Medicine Geriatric Medicine
DX: E55.9 Vitamin D deficiency, unspecified (principal); I10 Essential (primary) hypertension
CPT/HCPCS: 36415; 80053; 82306; 84443; 85025

== ENCOUNTER 2022-08-22 12:45 | Emergency (ER) | payer MEDICARE, SELFPAY ==
[2022-08-22 12:47] VITALS: BP 157/70; PULSE 69; RESP 16; TEMP 36.8; O2SAT 96; BMI 32.8
--- NOTE | 2022-08-22 12:51 | ED.RN ---
PATIENT STATES THAT HE WAS WALKING DOWN THE FLOOR AND THE FLOOR LOOKED LIKE .
--- NOTE | 2022-08-22 13:08 | EKG12_ITS ---
Test Reason : Blood Pressure : / mmHG Vent. Rate : 059 BPM Atrial Rate : 059 BPM P-R Int : 176 ms QRS Dur : 098 ms QT Int : 426 ms P-R-T Axes : 015 007 019 degrees QTc Int : 421 ms Sinus bradycardia Otherwise normal ECG Confirmed by ESTELITA CHATMAN, JERONIMO ([id number]), editorial director GIRISH FRIEND ([id number]) on 08/23/2022 9:24:14 AM Referred By: BERONICA Confirmed By:JERONIMO CAPONE MD
--- NOTE | 2022-08-22 13:09 | EX.ED.DYSGE1 ---
HPI History of Present Illness Chief Complaint: Syncope Narrative Narrative: 71-year-old male with altered mental status. Patient is unable to give history at this time. His is at the bedside. Patient was here for outpatient lab work by Dr. Sandoval. This was routine. Apparently had an episode of syncope. states he has been in and out of consciousness. He has a history of nonepileptic seizures. She states the last one he had was at a . No loss of bladder or bowel control. No tongue or lip biting. 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 Unintentional weight loss Home Medications ibuprofen 600 mg tablet 600 mg PO TID PRN pain #30 tabs 05/07/19 [Rx Last Taken 01/31/20] gabapentin 800 mg tablet 400 mg PO TID #90 tabs 06/02/20 [Rx Last Taken Unknown] lisinopril 10 mg tablet 10 mg PO DAILY #90 tabs 04/28/21 [Rx Last Taken Unknown] amlodipine 10 mg tablet 10 mg PO DAILY #90 tabs 05/26/21 [Rx Last Taken Unknown] citalopram 20 mg tablet 20 mg PO DAILY 07/22/21 [History Last Taken Unknown] levothyroxine 125 mcg tablet 137 mcg PO DAILY thyroid 01/07/22 [History Last Taken Unknown] testosterone IM Q2W 03/14/22 [History Last Taken Unknown] Allergy/AdvReac Type Severity Reaction Status Date / Time No Known Allergies Allergy Verified 05/13/22 10:27 Family History Father Heart disease Mother Diabetes Brother Diabetes Surgical History History of back surgery History of cranial surgery History of knee replacement History of orthopedic surgery History of shoulder surgery history of skin graph Social History Smoking Status: Never smoker alcohol intake: current alcohol intake frequency: holidays/special occasions only substance use type: marijuana caffeine: No what type of physical activity do you participate in: bicycling frequency: 5-6 times per week ROS ROS ED Review of Systems ROS Unobtainable: due to mental status EXAM Physical Exam Const Vital Signs: 08/22/22 12:47 Temperature 98.3 F Temperature Source Temporal Pulse Rate 69 Respiratory Rate 16 Blood Pressure 157/70 H Blood Pressure Mean 99 Pulse Ox 96 Oxygen Delivery Method Room Air Positive well nourished General Appearance ED: NAD HEENT Reports moist mucous membranes Eyes PERRL and EOMs intact bilaterally Resp normal respiratory effort and clear to auscultation bilaterally Cardio regular rate and regular rhythm GI normal to inspection, nondistended, normoactive bowel sounds Neuro CN's II-XII intact bilaterally Neuro Narrative: Awake. Not talking Skin no rashes or lesions noted and no wounds MDM MDM MDM Narrative Medical decision making narrative: Patient presenting after a syncopal episode. Patient has a history of nonepileptic seizures. I tried 3 times holding his hand over his face to see if he would move his hand that he does every time. I then sat him up and he woke up from his paralyzed state. No signs of trauma to the head. Pupils equal reactive to light. No focal neurologic deficits. Differential at this time includes was not limited to subdural, epidural, subarachnoid hemorrhage, seizure, nonepileptiform seizure. IV line was established. CBC to assess white blood cell count, hemoglobin, differential. BMP to assess renal function, electrolytes, glucose, and anion gap. Ammonia level due to altered mental status. EtOH as well. CT brain and cervical spine are negative. Patient has been alert and awake but does not recall the fall. He states he remembers going to Dr. Sandoval's office and had anxiety coming down the stairs in the last year members. He does state it feels like his previous nonepileptiform seizures. He has a headache now. He was initially given Tylenol and requesting more so was given Toradol. Patient and feel well enough to go home at this point. Return precautions discussed. Impression: 1. Closed head injury 2. Headache 3. History of PNES Lab Data Attestation: I reviewed the patient's lab results. Labs: Laboratory Results - last 24 hr 08/22/22 08/22/22 08/22/22 12:38 12:54 12:54 WBC 5.9 RBC 5.11 Hgb 15.4 Hct 45.6 MCV 89.2 MCH 30.1 MCHC 33.8 RDW Std Deviation 43.3 RDW Coeff of Nicole 13.2 Plt Count 167 MPV 12.1 H Immature Gran % (Auto) 0.300 Neut % (Auto) 45.0 L Lymph % (Auto) 40.9 Marin % (Auto) 11.5 H Eos % (Auto) 1.5 Baso % (Auto) 0.8 Absolute Neuts (auto) 2.6 Absolute Lymphs (auto) 2.41 Nucleated RBC % 0 Sodium 143 Potassium 3.5 Chloride 107 Carbon Dioxide 27.0 Anion Gap 9 BUN 14 Creatinine 0.95 Estim Creat Clear Calc 71.32 Est GFR (MDRD) Af Amer 101 Est GFR (MDRD) Non-Af 83 BUN/Creatinine Ratio 14.8 Glucose 91 Calcium 9.1 Ammonia Troponin I High Sens 6 Ethyl Alcohol POC Glucose 109 H 08/22/22 08/22/22 12:54 12:54 WBC RBC Hgb Hct MCV MCH MCHC RDW Std Deviation RDW Coeff of Nicole Plt Count MPV Immature Gran % (Auto) Neut % (Auto) Lymph % (Auto) Marin % (Auto) Eos % (Auto) Baso % (Auto) Absolute Neuts (auto) Absolute Lymphs (auto) Nucleated RBC % Sodium Potassium Chloride Carbon Dioxide Anion Gap BUN Creatinine Estim Creat Clear Calc Est GFR (MDRD) Af Amer Est GFR (MDRD) Non-Af BUN/Creatinine Ratio Glucose Calcium Ammonia 19.0 Troponin I High Sens Ethyl Alcohol < 3.0 POC Glucose Radiography Diagnostic Testing: Clinical Impression(s) from Imaging Studies Brain CT 08/22/22 13:20 IMPRESSION: Chronic involutional changes of the brain. Electronically Signed: Loco Mcfarlane MD at 13:54 EST , Cervical Spine CT 08/22/22 13:20 IMPRESSION: Multilevel degenerative changes, as described above. Electronically Signed: Loco Mcfarlane MD at 14:01 EST , Discharge Plan Triage Chief Complaint: Syncope ED Provider: Donato Frances Dx/Rx/DC Orders Clinical Impression: Psychiatric pseudoseizure Instructions: ED Fainting, Uncertain Cause, ED Conversion Reaction Prescriptions: No Action ibuprofen 600 mg tablet 600 mg PO TID PRN (Reason: pain) Qty: 30 0RF Rx Instructions: take with food gabapentin 800 mg tablet 400 mg PO TID Qty: 90 2RF Label Comments: just increased from 600 mg BID yesterday takes for nerve damage citalopram 20 mg tablet 20 mg PO DAILY testosterone IM Q2W Label Comments: Injection per patient; dose unknown levothyroxine 125 mcg tablet 137 mcg PO DAILY lisinopril 10 mg tablet 10 mg PO DAILY Qty: 90 2RF Label Comments: takes for BP amlodipine 10 mg tablet 10 mg PO DAILY Qty: 90 3RF Primary Care Provider: Silverio Sandoval Chi Referrals: Silverio Sandoval Chi, MD [Primary Care Provider] - Disposition Disposition: Home, Self Care Discharge Date/Time: 08/22/22 15:47
--- NOTE | 2022-08-22 13:20 | CT_ITS ---
STUDY: CT CERVICAL SPINE WITHOUT CONTRAST REASON FOR EXAM: Male, 71 years old. Altered mental status due to a fall. RADIATION DOSAGE (If Supplied By Facility): CTDIvol = ( 25.20 ) mGy, DLP = ( 577.42 ) mGycm TECHNIQUE: High resolution transaxial imaging was performed without contrast material. Sagittal and coronal images were reconstructed. Individualized dose optimization techniques were used for this CT. COMPARISON: Comparison is made with prior study dated 01/07/2022. FINDINGS: Normal craniovertebral junction. There are degenerative changes of the anterior atlantoaxial articulation. Normal odontoid process. Normal cervical lordosis. Normal vertebral bodies and posterior osseous elements. C2-3: Anterior spondylosis. Mild degree of facet joint osteoarthritis and hypertrophy more prominent on the left side. C3-4: Mild degree of anterior spondylosis. Facet joint osteoarthritis and hypertrophy. Uncovertebral arthrosis. Bilateral neural foraminal stenosis worse on the left side. C4-5: Moderate degree of disc space narrowing. Spondylosis. Uncovertebral arthrosis. Bilateral neural foraminal stenosis. This is worse on the right side. C5-6: Moderate degree of disc space narrowing. Spondylosis. Uncovertebral arthrosis. Marked degree of bilateral neural foraminal stenosis. C6-7: Marked degree of disc space narrowing. Spondylosis. Uncovertebral arthrosis. Marked degree of bilateral neural foraminal stenosis. C7-T1: Disc space narrowing and spondylosis. Normal visualized soft tissue structures. CT/Spine Cervical without Contras IMPRESSION: Multilevel degenerative changes, as described above. Electronically Signed: Loco Mcfarlane MD at 14:01 EST ,
--- NOTE | 2022-08-22 13:20 | CT_ITS ---
STUDY: CT BRAIN WITHOUT CONTRAST REASON FOR EXAM: Male, 71 years old. ams RADIATION DOSAGE (If Supplied By Facility): CTDIvol = ( 44.99 ) mGy, DLP = ( 846.73 ) mGycm TECHNIQUE: Transaxial CT imaging of the brain was performed without administration of intravenous contrast material. Individualized dose optimization techniques were used for this CT. COMPARISON: Comparison is made with prior study dated 01/07/2022. FINDINGS: Normal soft tissue structures. Normal calvarium. There is mild cerebral atrophy with widening of the extra-axial spaces and ventricular dilatation. Normal white matter tracts of the cerebral hemispheres. Normal basal ganglia and thalami. Normal brainstem. Normal cerebellum. There is no intracranial hemorrhage. There are no findings of an acute ischemic infarction. Normal visualized paranasal sinuses. CT/Brain/Head without Contrast IMPRESSION: Chronic involutional changes of the brain. Electronically Signed: Loco Mcfarlane MD at 13:54 EST ,
[2022-08-22 13:30] LABS: Absolute Lymphocyte Count 2.41 X10^3/uL (0.83-4.51); Absolute Neutrophil Count 2.6 X10^3/uL (2.0-7.7); Basophil# 0.05 X10^3/uL; Basophil% 0.8 % (0-1); Eosinophil# 0.09 X10^3/uL; Eosinophils% 1.5 % (0-5); Hematocrit 45.6 % (40-54); Hemoglobin 15.4 g/dL (13.0-16.5); Lymphocyte # 2.41 X10^3/ul (0.83-4.51); Lymphocyte % 40.9 % (19-41); Mean Corp Hgb Conc 33.8 g/dL (32-36); Mean Corpuscular Hgb 30.1 pg (27.0-32.0); Mean Corpuscular Volume 89.2 fL (80-94); Mean Platelet Vol. 12.1 fl (6.2-12.0); Monocyte# 0.68 X10^3/uL; Monocyte% 11.5 % (0-10); NRBC Flagged by Analyzer 0 % (0-5); Neutrophil # 2.64 X10^3/uL (2.7-7.7); Platelet Count 167 K/mm3 (150-450); RBC Distribution Width CV 13.2 % (11.6-14.6); RBC Distribution Width SD 43.3 fl (35.1-43.9); Red Blood Count 5.11 M/mm3 (4.6-6.2); White Blood Count 5.9 K/mm3 (4.4-11.0)
[2022-08-22 13:45] VITALS: BP 140/64
[2022-08-22 13:45] LABS: Alcohol, Blood (Medical)-Serum < 3.0 mg/dL; Anion Gap 9 (5-15); BUN 14 mg/dL (7-18); BUN/Creat Ratio 14.8 RATIO (10-20); Calcium,Total 9.1 mg/dL (8.5-10.1); Chloride 107 mmol/L (98-107); Creatinine, Serum 0.95 mg/dL (0.70-1.30); EST Glomerular Filtration Rate 83 mL/min (>60); Est Glom Filt Rate - Afr Amer 101 mL/min (>60); Estimated Creatinine Clearance 71.32 ml/min; Glucose 91 mg/dL (74-106); Potassium 3.5 mmol/L (3.5-5.1); Sodium Level 143 mmol/L (136-145); Troponin-I HS 6 pg/mL (3.0-78.0)
[2022-08-22] MEDS: Acetaminophen 500 MG Tablet 1000 MG PO (13:59)
[2022-08-22 14:45] VITALS: BP 133/69
[2022-08-22 14:46] LABS: Bedside Glucose 109 mg/dL (74-106)
[2022-08-22] MEDS: Ketorolac 15 MG/ML Vial IV (15:16)
[2022-08-22 15:21] VITALS: RESP 18
== END 2022-08-22 15:47 | disposition home or self-care (01) ==
LOC: ED 13:16
PROVIDERS: Emergency Provider Student in an Organized Health Care Education/Training Program; PCP Family Medicine Geriatric Medicine; Visit Provider Student in an Organized Health Care Education/Training Program
DX: R56.9 Unspecified convulsions (principal); S09.90XA Unspecified injury of head, initial encounter; I10 Essential (primary) hypertension; R41.82 Altered mental status, unspecified; X58.XXXA Exposure to other specified factors, initial encounter
CPT/HCPCS: 70450; 72125; 80048; 82077; 82140; 82962; 84484; 85025; 93005; 96374; 99284

== ENCOUNTER → 2022-12-05 | Outpatient (CLI) | payer MEDICARE, SELFPAY ==
[2022-12-05 10:51] LABS: Absolute Lymphocyte Count 1.88 X10^3/uL (0.83-4.51); Absolute Neutrophil Count 8.3 X10^3/uL (2.0-7.7); Basophil# 0.03 X10^3/uL; Basophil% 0.3 % (0-1); Eosinophil# 0.03 X10^3/uL; Eosinophils% 0.3 % (0-5); Hematocrit 49.5 % (40-54); Hemoglobin 16.1 g/dL (13.0-16.5); Lymphocyte # 1.88 X10^3/ul (0.83-4.51); Lymphocyte % 16.9 % (19-41); Mean Corp Hgb Conc 32.5 g/dL (32-36); Mean Corpuscular Hgb 30.3 pg (27.0-32.0); Mean Corpuscular Volume 93.2 fL (80-94); Mean Platelet Vol. 11.5 fl (6.2-12.0); Monocyte# 0.84 X10^3/uL; Monocyte% 7.5 % (0-10); NRBC Flagged by Analyzer 0 % (0-5); Neutrophil # 8.29 X10^3/uL (2.7-7.7); Neutrophil % 74.3 % (47-70); Platelet Count 184 K/mm3 (150-450); RBC Distribution Width CV 14.6 % (11.6-14.6); RBC Distribution Width SD 49.6 fl (35.1-43.9); Red Blood Count 5.31 M/mm3 (4.6-6.2); White Blood Count 11.2 K/mm3 (4.4-11.0)
[2022-12-05 11:21] LABS: Vitamin D,25 Hydroxy 34.1 ng/mL
[2022-12-05 11:33] LABS: ALB/GLOB Ratio 1.3 RATIO (0.9-2.4); AST(SGOT) 11 U/L (15-37); Alanine Aminotransfer ALT/SGPT 33 U/L (16-61); Albumin, Serum 4.3 g/dL (3.2-5.0); Alkaline Phosphatase 49 U/L (45-117); Anion Gap 4 (5-15); BUN 25 mg/dL (7-18); BUN/Creat Ratio 24.5 RATIO (10-20); Calcium,Total 9.2 mg/dL (8.5-10.1); Chloride 103 mmol/L (98-107); Creatinine, Serum 1.02 mg/dL (0.70-1.30); EST Glomerular Filtration Rate 76 mL/min (>60); Est Glom Filt Rate - Afr Amer 92 mL/min (>60); Globulin 3.4 g/dL (2.2-4.2); Glucose 98 mg/dL (74-106); Potassium 5.4 mmol/L (3.5-5.1); Protein, Total 7.7 g/dL (6.4-8.2); Sodium Level 136 mmol/L (136-145)
== END | disposition home or self-care (01) ==
LOC: LAB 10:39
PROVIDERS: PCP Family Medicine Geriatric Medicine; Referring Provider Family Medicine Geriatric Medicine; Visit Provider Family Medicine Geriatric Medicine
DX: I10 Essential (primary) hypertension (principal); E55.9 Vitamin D deficiency, unspecified
CPT/HCPCS: 36415; 80053; 82306; 84443; 85025

== ENCOUNTER → 2022-12-07 | Outpatient (CLI) | payer MEDICARE, SELFPAY ==
[2022-12-07 18:03] LABS: Anion Gap 4 (5-15); BUN 22 mg/dL (7-18); BUN/Creat Ratio 19.1 RATIO (10-20); Calcium,Total 9.3 mg/dL (8.5-10.1); Chloride 104 mmol/L (98-107); Creatinine, Serum 1.15 mg/dL (0.70-1.30); EST Glomerular Filtration Rate 66 mL/min (>60); Est Glom Filt Rate - Afr Amer 80 mL/min (>60); Glucose 107 mg/dL (74-106); Potassium 4.6 mmol/L (3.5-5.1); Sodium Level 138 mmol/L (136-145)
== END | disposition home or self-care (01) ==
LOC: LAB 17:11
PROVIDERS: PCP Family Medicine Geriatric Medicine; Visit Provider Family Medicine Geriatric Medicine
DX: E87.5 Hyperkalemia (principal)
CPT/HCPCS: 36415; 80048

== ENCOUNTER → 2022-12-26 | Outpatient (CLI) | payer MEDICARE, SELFPAY ==
--- NOTE | 2022-12-26 09:22 | US_ITS ---
STUDY: ABDOMINAL ULTRASOUND - RIGHT UPPER QUADRANT; ELASTOGRAPHY REASON FOR VISIT: Male, 72 years old. TECHNIQUE: Ultrasound evaluation of the right upper quadrant was performed with real-time and static pickens-scale imaging. Point quantification shear wave elastography was performed ([employer]). TECHNICAL QUALITY: Adequate. COMPARISON: Comparison is made with prior study dated June 17, 2020. FINDINGS: Liver: The liver measures 16.5 cm. There is increased echogenicity consistent with a mild degree of fatty infiltration. The bile ducts are within normal limits. There is hepatic color flow. The direction of portal flow is hepatopetal. There is a 1.1 cm x 0.9 cm by 1.1 cm cyst in the right lobe of the liver. There is a 6 mm x 9 mm x 8 mm cyst in the left lobe of the liver. Median liver stiffness measured 7.7 kPa. Gallbladder: The patient is status post cholecystectomy. . Common Bile Duct (C.B.D.): The common bile duct measures 4 mm. Pancreas: The pancreas was not visualized due to overlying bowel gas. Right Kidney: Normal size of the right kidney. The right kidney measures 10.9 cm x 5.4 cm x 5.9 cm. Normal renal cortex. The right cortex measures 1.5 cm. There is no demonstrated renal mass or cyst. There is no right hydronephrosis. US/ABD Limited w/ Elastography IMPRESSION: 1. Liver stiffness measures 7.7 kPa compatible with F2-F3 (Mild to moderate liver fibrosis) Metavir score. Electronically Signed: Loco Mcfarlane MD at 15:28 EDT ,
== END | disposition home or self-care (01) ==
LOC: US 09:19
PROVIDERS: PCP Family Medicine Geriatric Medicine; Referring Provider Family Medicine Geriatric Medicine; Visit Provider Family Medicine Geriatric Medicine
DX: K74.69 Other cirrhosis of liver (principal)
CPT/HCPCS: 76705; 76981

== ENCOUNTER → 2023-03-14 | Outpatient (CLI) | payer MEDICARE, SELFPAY ==
--- NOTE | 2023-03-14 17:02 | CT_ITS ---
INDICATION: ABD PAIN EXAMINATION: CT Abdomen And Pelvis W/ Contrast Injection TECHNIQUE: Helically acquired images were obtained of the abdomen and pelvis after IV contrast. A radiation dose optimization technique was used for this scan. IV Contrast dosage and agent: Oral and amp; IV Gastrografin and amp; 100mL Isovue-300 Oral contrast: None. COMPARISON: None. FINDINGS: Visualized lung bases: Unremarkable Liver: Scattered hepatic cysts. Gallbladder: Surgically absent. Spleen: Unremarkable Pancreas: Unremarkable Adrenal Glands: Unremarkable Kidneys: Unremarkable Vasculature: Mild scattered aortoiliac atherosclerotic calcifications. GI Tract: Scattered diverticula throughout the colon without evidence of inflammation. Lymphadenopathy: None Peritoneum: No ascites. Bladder: Unremarkable Reproductive organs: The prostate is mildly enlarged. Bones/Soft tissues: There are diffuse degenerative changes of the spine. Postsurgical changes status post posterior fusion L3-L5. Grade 1 anterolisthesis L4 on L5. CT/Abdomen/Pelvis WITH Contrast IMPRESSION: No acute abnormalities in the abdomen or pelvis. Postsurgical changes status post posterior fusion L3-L5 with grade 1 anterolisthesis L4 on L5.. Correlate with prior imaging to assess for acute change. Mild prostatomegaly. Correlate with PSA levels. Electronically Signed: Diloln Mendez MD at 21:01 EDT ,
[2023-03-14 19:17] LABS: CREATININE FINGERSTICK 1.5 mg/dL (0.70-1.30)
== END | disposition home or self-care (01) ==
PROVIDERS: PCP Family Medicine Geriatric Medicine; Referring Provider Family Medicine Geriatric Medicine; Visit Provider Family Medicine Geriatric Medicine
DX: R10.9 Unspecified abdominal pain (principal); N40.0 Benign prostatic hyperplasia without lower urinary tract symptoms; I10 Essential (primary) hypertension; R11.0 Nausea; N39.0 Urinary tract infection, site not specified; Z12.5 Encounter for screening for malignant neoplasm of prostate
CPT/HCPCS: 36415; 74177; 80053; 82150; 83690; 84153; 85025; 87086; Q9967; G0103

== ENCOUNTER → 2023-03-14 | Outpatient (CLI) | payer MEDICARE, SELFPAY ==
[2023-03-14 17:55] LABS: Absolute Neutrophil Count 6.7 X10^3/uL (2.0-7.7); Basophil# 0.05 X10^3/uL; Basophil% 0.5 % (0-1); Eosinophil# 0.02 X10^3/uL; Eosinophils% 0.2 % (0-5); Hematocrit 54.3 % (40-54); Lymphocyte % 20.7 % (19-41); Mean Corp Hgb Conc 34.6 g/dL (32-36); Mean Corpuscular Hgb 31.8 pg (27.0-32.0); Mean Corpuscular Volume 91.9 fL (80-94); Mean Platelet Vol. 10.8 fl (6.2-12.0); Monocyte# 0.85 X10^3/uL; Monocyte% 8.8 % (0-10); NRBC Flagged by Analyzer 0 % (0-5); Neutrophil # 6.73 X10^3/uL (2.7-7.7); Neutrophil % 69.6 % (47-70); Platelet Count 244 K/mm3 (150-450); RBC Distribution Width CV 13.2 % (11.6-14.6); RBC Distribution Width SD 45.3 fl (35.1-43.9); Red Blood Count 5.91 M/mm3 (4.6-6.2); White Blood Count 9.7 K/mm3 (4.4-11.0)
[2023-03-14 18:10] LABS: ALB/GLOB Ratio 1.3 RATIO (0.9-2.4); AST(SGOT) 14 U/L (15-37); Alanine Aminotransfer ALT/SGPT 34 U/L (16-61); Albumin, Serum 4.7 g/dL (3.2-5.0); Alkaline Phosphatase 44 U/L (45-117); Amylase 40 U/L (25-115); Anion Gap 7 (5-15); BUN 21 mg/dL (7-18); BUN/Creat Ratio 12.9 RATIO (10-20); Calcium,Total 9.7 mg/dL (8.5-10.1); Chloride 102 mmol/L (98-107); Creatinine, Serum 1.63 mg/dL (0.70-1.30); EST Glomerular Filtration Rate 44 mL/min (>60); Est Glom Filt Rate - Afr Amer 54 mL/min (>60); Globulin 3.6 g/dL (2.2-4.2); Glucose 103 mg/dL (74-106); Lipase 33 U/L (13-75); Potassium 4.7 mmol/L (3.5-5.1); Protein, Total 8.3 g/dL (6.4-8.2); Sodium Level 135 mmol/L (136-145)
[2023-03-14 18:32] LABS: Differential Indicated SCAN CRITERIA MET; POSITIVE COUNT NO; POSITIVE DIFFERENTIAL NO; POSITIVE MORPHOLOGY NO
[2023-03-14 18:49] LABS: Hemoglobin 18.8 g/dL (13.0-16.5)
[2023-03-14 18:50] LABS: Anisocytosis RARE; Macrocytosis RARE; Platelet Estimate ADEQUATE (ADEQ); Platelet Morphology LARGE; Red Cell Morphology N CHROM NORMAL (NORM C&C)
[2023-03-16 09:54] LABS: Pathologist Review Reviewed
== END | disposition home or self-care (01) ==
PROVIDERS: PCP Family Medicine Geriatric Medicine; Visit Provider Family Medicine Geriatric Medicine
DX: N40.0 Benign prostatic hyperplasia without lower urinary tract symptoms (principal); I10 Essential (primary) hypertension; R11.0 Nausea; N39.0 Urinary tract infection, site not specified
CPT/HCPCS: 36415; 80053; 82150; 83690; 85025; 87086

== ENCOUNTER → 2023-03-15 | Outpatient (CLI) | payer MEDICARE, SELFPAY | END | disposition home or self-care (01) | PROVIDERS: PCP Family Medicine Geriatric Medicine; Visit Provider Family Medicine Geriatric Medicine | DX: R19.7 Diarrhea, unspecified (principal) | CPT/HCPCS: 82274; 83630; 87177; 87209; 87493 ==

== ENCOUNTER → 2023-04-05 | Outpatient (CLI) | payer MEDICARE, SELFPAY ==
--- NOTE | 2023-04-05 16:45 | RAD_ITS ---
INDICATION: LUMBAR DISC DISEASE EXAMINATION/TECHNIQUE: X-RAY - XR Spine Lumbar Min 4 Views COMPARISON: Prior study dated: CT from 03/14/2023 FINDINGS: VERTEBRAE: Grade 1 anterolisthesis of L4 on L5. Posterior fusion hardware in place from L3 to L5. Hardware appears intact. Disc spacers seen at L4-L5. Preserved vertebral body height. No fracture. No spondylolisthesis. Preservation of the normal lumbar lordosis. Facet arthropathy seen. DISCS: Disc space narrowing at L1-L2 and L2-L3. Endplate osteophytes associated. INCLUDED ABDOMEN: Included bowel gas pattern is non-obstructive. Sacroiliac joints are symmetric. RAD/L/S Spine Min 4 Views IMPRESSION: Intact posterior fusion hardware from L3 to L5. Degenerative changes of the spine. Electronically Signed: Vincent Peterson MD at 18:56 EDT ,
== END | disposition home or self-care (01) ==
LOC: RAD 16:39
PROVIDERS: PCP Family Medicine Geriatric Medicine; Referring Provider Family Medicine Geriatric Medicine; Visit Provider Family Medicine Geriatric Medicine
DX: M51.9 Unspecified thoracic, thoracolumbar and lumbosacral intervertebral disc disorder (principal)
CPT/HCPCS: 72110

== ENCOUNTER → 2023-04-12 | Outpatient (CLI) | payer MEDICARE, SELFPAY | END | disposition home or self-care (01) | PROVIDERS: PCP Family Medicine Geriatric Medicine; Referring Provider Family Medicine Geriatric Medicine; Visit Provider Family Medicine Geriatric Medicine | DX: R68.83 Chills (without fever) (principal) | CPT/HCPCS: 87635; 87804; 87807 ==

== ENCOUNTER 2023-04-19 10:36 | Outpatient (RCR) | payer MEDICARE, SELFPAY ==
--- NOTE | 2023-04-19 12:11 | HP.PTEVAL_ITS ---
Patient's Visit Information Visit Information Visit Information: SUNITA TOTH is a 72 year old M referred to Physical Therapy by Dr. Silverio Sandoval MD with a diagnosis of LOW BACK PAIN. Date of Evaluation: 04/19/23 Physical Therapist: Rian Cline, PT, Cert MDT, OCS Visit Plan Frequency: 2x /Week Duration: 4 Weeks Plan: PT INTERVETIONS DLS ,POSTURAL EX'S ,STRENGTHNEING ,LE FLEXABILITY AND MODALITIES Subjective Subjective: This 72 y/o male presents to physical therapy with low back pain. Patient has LBP for ~ 20 years. Patient has had prior lumbar surgery x2 with fusion last surgery 2009. Patient seen x-rays DDD . Patient has not seen pain management ,patient did have prior epidural injections. Location of pain left lumbar and radicular symptoms with symptoms hamstring to foot. Aggravating factors standing ,walking bending /lifting. Patient takes Aleve alleviating factors. Patient prescribed muscle relaxer. Bowel/bladder -. Coughing/sneezing increase pain Patient denies paresthesia/tingling. Patient sleeping okay . Patient pain worse at night. Patient condition affects QOL and function. VOCATION: SOCIAL: Handicapped Objective Objective: POSTURE: mild forward rounded shoulders SYMMTIES: align NEURO: denies paresthesia/tingling ,reflexes L3-4,L4-5,L5-S1 1/3 FLEXABILITY: hamstrings min tight MMT: quads/hams 4/5 ,hip flexion/abduction 4-/5 ,ankle 5/5 FLEXABILITY: mod hamstrings tight LUMBAR ROM: flexion min loss ,extensions min loss, side glides min loss Special Tests L/S Slump test left side: Negative L/S Slump test right side: Negative L/S Left Straight Leg Raise: Negative L/S Right Straight Leg Raise: Negative Lumbar Standing: Flexion - Mechanical Response: No effect Lumbar Standing: Flexion - Symptoms During Testing: No effect Lumbar Standing: Flexion - Symptoms After Testing: No effect Lumbar Standing: Extension - Mechanical Response: No effect Lumbar Standing: Extension - Symptoms During Testing: No effect Lumbar Standing: Extension - Symptoms After Testing: No effect Lumbar Standing: Right Side Glides - Mechanical Response: No effect Lumbar Standing: Right Side [place] - Symptoms During Testing: No effect Lumbar Standing: Right Side [place] - Symptoms After Testing: No effect Lumbar Standing: Left Side [place] - Mechanical Response: No effect Lumbar Standing: Left Side [place] - Symptoms During Testing: No effect Lumbar Standing: Left Side [place] - Symptoms After Testing: No effect Balance/Special Test Scores Oswestry Low Back Score: 19 Goals Goal 1:: Patient to be I with HEP for back Goal Time Frame: 4-6 Weeks Goal 2:: Patient to demonstrate 60% improvement with less pain and improved function Goal Time Frame: 4-6 Weeks Goal 3:: Patient to improve lumbar ROM for function of recovery for golfing and housework tasks Goal Time Frame: 4-6 Weeks Goal 4:: Patient to improve back oswestry score by 5 points or greater to improve QOL. Goal Time Frame: 4-6 Weeks Rehabilitation Potential Physical Therapy Diagnosis: Patient has lumbar pain with possible stenosis with pain with positioning and motion testing with pain with walking/standing affects ADLS and housework tasks thus benefit from skilled PT Rehabilitation Potential: Good Anticipated Interventions Patient/Client Instruction: Educate patient on: Condition and Plan of Care For the Purpose of:: To decrease pain, To increase ROM, To increase oxygenation perfusion, To improve ability to perform ADL's, To improve ability of physical actions for home/community/work/leisure, To improve health of tissue, To decrease soft tissue restriction and To increase flexibility/ROM Therapeutic Exercise to Include: Strength training, Endurance training, Balance training, Postural training, Flexibilty training and Dynamic Lumbar Stabilization For the Purpose of:: To decrease pain, To increase ROM, To improve muscle p erformance and motor function, To increase tolerance to activity/condition/position, To improve ability of physical actions for home/community/work/leisure, To improve health of tissue, To decrease soft tissue restriction, To increase flexibility/ROM and To prevent re-injury TENS: Yes IF ES: Yes Cryotherapy (ice pack, ice massage): Yes Thermo therapy (hot pack): Yes Ultrasound (thermal/non thermal): Yes For the Purpose of:: To decrease pain, To increase ROM, To improve nutrient delivery to tissue, To increase oxygenation perfusion, To improve health of tissue and To decrease soft tissue restriction Text: Thank you for the opportunity to evaluate your patient. For Medicare and Medicare HMO plans, please review the plan of care and approve it. It will need to be FAXED BACK to us at [phone] for Medicare purposes. For Medicare only, by signing this I certify the plan of care. Please let me know if there are questions or concerns regarding this plan of care. Physician Sig nature: Date:
== END 2023-04-19 19:00 | disposition home or self-care (01) ==
LOC: PT 10:36
PROVIDERS: PCP Family Medicine Geriatric Medicine; Visit Provider Family Medicine Geriatric Medicine
DX: M54.50 Low back pain, unspecified (principal)
CPT/HCPCS: 97110; 97162

== ENCOUNTER → 2023-06-14 | Outpatient (CLI) | payer MEDICARE, SELFPAY ==
[2023-06-14 15:24] LABS: Absolute Lymphocyte Count 1.65 X10^3/uL (0.83-4.51); Absolute Neutrophil Count 4.1 X10^3/uL (2.0-7.7); Basophil# 0.07 X10^3/uL; Basophil% 1.1 % (0-1); Eosinophil# 0.05 X10^3/uL; Eosinophils% 0.8 % (0-5); Hematocrit 47.7 % (40-54); Hemoglobin 15.7 g/dL (13.0-16.5); Lymphocyte # 1.65 X10^3/ul (0.83-4.51); Lymphocyte % 25.2 % (19-41); Mean Corp Hgb Conc 32.9 g/dL (32-36); Mean Corpuscular Hgb 30.1 pg (27.0-32.0); Mean Corpuscular Volume 91.4 fL (80-94); Mean Platelet Vol. 10.8 fl (6.2-12.0); Monocyte# 0.64 X10^3/uL; Monocyte% 9.8 % (0-10); NRBC Flagged by Analyzer 0 % (0-5); Neutrophil # 4.11 X10^3/uL (2.7-7.7); Neutrophil % 62.8 % (47-70); Platelet Count 219 K/mm3 (150-450); RBC Distribution Width CV 12.8 % (11.6-14.6); RBC Distribution Width SD 42.5 fl (35.1-43.9); Red Blood Count 5.22 M/mm3 (4.6-6.2); White Blood Count 6.5 K/mm3 (4.4-11.0)
[2023-06-14 16:00] LABS: ALB/GLOB Ratio 1.2 RATIO (0.9-2.4); AST(SGOT) 21 U/L (15-37); Alanine Aminotransfer ALT/SGPT 39 U/L (16-61); Albumin, Serum 4.1 g/dL (3.2-5.0); Alkaline Phosphatase 44 U/L (45-117); Anion Gap 9 (5-15); BUN 15 mg/dL (7-18); BUN/Creat Ratio 14.6 RATIO (10-20); Calcium,Total 8.7 mg/dL (8.5-10.1); Chloride 105 mmol/L (98-107); Creatinine, Serum 1.03 mg/dL (0.70-1.30); EST Glomerular Filtration Rate 75 mL/min (>60); Est Glom Filt Rate - Afr Amer 91 mL/min (>60); Globulin 3.3 g/dL (2.2-4.2); Glucose 99 mg/dL (74-106); Potassium 3.9 mmol/L (3.5-5.1); Protein, Total 7.4 g/dL (6.4-8.2); Sodium Level 141 mmol/L (136-145); Thyroid Stim Hormone (TSH) 0.39 uIU/mL (0.358-3.74)
== END | disposition home or self-care (01) ==
LOC: POLAB3 14:20
PROVIDERS: PCP Family Medicine Geriatric Medicine; Visit Provider Family Medicine Geriatric Medicine
DX: I10 Essential (primary) hypertension (principal); E55.9 Vitamin D deficiency, unspecified
CPT/HCPCS: 36415; 80053; 82306; 84443; 85025

== ENCOUNTER → 2023-10-24 | Outpatient (CLI) | payer MEDICARE, SELFPAY ==
[2023-10-24 19:59] LABS: M R Staph aureus DNA By PCR Negative (Negative); Probe Check PASS; Specimen Processing Control PASS; Staph aureus DNA By PCR NEGATIVE (Negative)
== END | disposition home or self-care (01) ==
PROVIDERS: PCP Family Medicine Geriatric Medicine; Visit Provider Family Medicine Geriatric Medicine
DX: L03.116 Cellulitis of left lower limb (principal); B95.62 Methicillin resistant Staphylococcus aureus infection as the cause of diseases classified elsewhere
CPT/HCPCS: 87070; 87077; 87186; 87205; 87640

== ENCOUNTER → 2023-12-05 | Outpatient (CLI) | payer MEDICARE, SELFPAY ==
[2023-12-05 16:11] LABS: Absolute Lymphocyte Count 2.15 X10^3/uL (0.83-4.51); Absolute Neutrophil Count 4.1 X10^3/uL (2.0-7.7); Basophil# 0.07 X10^3/uL; Eosinophil# 0.05 X10^3/uL; Eosinophils% 0.7 % (0-5); Hematocrit 47.3 % (40-54); Hemoglobin 15.6 g/dL (13.0-16.5); Lymphocyte # 2.15 X10^3/ul (0.83-4.51); Lymphocyte % 30.7 % (19-41); Mean Corpuscular Hgb 29.7 pg (27.0-32.0); Mean Corpuscular Volume 89.9 fL (80-94); Mean Platelet Vol. 10.9 fl (6.2-12.0); Monocyte# 0.63 X10^3/uL; NRBC Flagged by Analyzer 0 % (0-5); Neutrophil # 4.09 X10^3/uL (2.7-7.7); Neutrophil % 58.3 % (47-70); Platelet Count 231 K/mm3 (150-450); RBC Distribution Width CV 13.2 % (11.6-14.6); RBC Distribution Width SD 43.4 fl (35.1-43.9); Red Blood Count 5.26 M/mm3 (4.6-6.2)
[2023-12-05 16:42] LABS: Vitamin D,25 Hydroxy 22.7 ng/mL
[2023-12-05 17:00] LABS: ALB/GLOB Ratio 1.5 RATIO (0.9-2.4); AST(SGOT) 18 U/L (15-37); Alanine Aminotransfer ALT/SGPT 35 U/L (16-61); Albumin, Serum 4.5 g/dL (3.2-5.0); Alkaline Phosphatase 63 U/L (45-117); Anion Gap 3 (5-15); BUN 20 mg/dL (7-18); BUN/Creat Ratio 22.4 RATIO (10-20); Calcium,Total 9.5 mg/dL (8.5-10.1); Chloride 103 mmol/L (98-107); Creatinine, Serum 0.89 mg/dL (0.70-1.30); EST Glomerular Filtration Rate 89 mL/min (>60); Est Glom Filt Rate - Afr Amer 107 mL/min (>60); Globulin 3.1 g/dL (2.2-4.2); Glucose 89 mg/dL (74-106); Potassium 5.4 mmol/L (3.5-5.1); Protein, Total 7.6 g/dL (6.4-8.2); Sodium Level 133 mmol/L (136-145); Thyroid Stim Hormone (TSH) 0.07 uIU/mL (0.358-3.74)
== END | disposition home or self-care (01) ==
LOC: LAB 14:56
PROVIDERS: PCP Family Medicine Geriatric Medicine; Referring Provider Family Medicine Geriatric Medicine; Visit Provider Family Medicine Geriatric Medicine
DX: I10 Essential (primary) hypertension (principal); E55.9 Vitamin D deficiency, unspecified
CPT/HCPCS: 36415; 80053; 82306; 84443; 85025

== ENCOUNTER → 2023-12-07 | Outpatient (CLI) | payer MEDICARE, SELFPAY ==
[2023-12-07 17:37] LABS: Anion Gap 6 (5-15); BUN 18 mg/dL (7-18); BUN/Creat Ratio 14.6 RATIO (10-20); Calcium,Total 8.8 mg/dL (8.5-10.1); Chloride 102 mmol/L (98-107); Creatinine, Serum 1.23 mg/dL (0.70-1.30); EST Glomerular Filtration Rate 61 mL/min (>60); Est Glom Filt Rate - Afr Amer 74 mL/min (>60); Glucose 108 mg/dL (74-106); Sodium Level 135 mmol/L (136-145)
== END | disposition home or self-care (01) ==
LOC: LAB 15:34
PROVIDERS: PCP Family Medicine Geriatric Medicine; Referring Provider Family Medicine Geriatric Medicine; Visit Provider Family Medicine Geriatric Medicine
DX: E78.5 Hyperlipidemia, unspecified (principal); E03.9 Hypothyroidism, unspecified
CPT/HCPCS: 36415; 80048

== ENCOUNTER → 2024-01-02 | Outpatient (CLI) | payer MEDICARE, SELFPAY ==
--- NOTE | 2024-01-02 07:18 | US_ITS ---
STUDY: ABDOMINAL ULTRASOUND - RIGHT UPPER QUADRANT; ELASTOGRAPHY REASON FOR VISIT: Male, 73 years old. Hepatic fibrosis. TECHNIQUE: Ultrasound evaluation of the right upper quadrant was performed with real-time and static pickens-scale imaging. Point quantification shear wave elastography was performed ([employer]). TECHNICAL QUALITY: Limited. Examination limited by bowel gas. COMPARISON: Comparison is made with prior study dated December 26, 2022. FINDINGS: Liver: The liver measures 17.9 cm. There is increased echogenicity consistent with fatty infiltration. The bile ducts are within normal limits. There is hepatic color flow. The direction of portal flow is hepatopetal. Septated cyst measuring 1 cm x 0.9 cm x 1 cm in the right lobe of the liver. There is also evidence of a 0.6 cm x 1 cm x 1 cm cyst in the left lobe. Median liver stiffness measured 7.3 kPa. Gallbladder: The patient is status post cholecystectomy. Common Bile Duct (C.B.D.): The common bile duct measures 2.7 mm. Pancreas: There is normal echogenicity of the visualized pancreas. There is no demonstrated pancreatic mass or cyst. Right Kidney: Normal size of the right kidney. The right kidney measures 11.4 cm x 4.3 cm x 5.9 cm. Normal renal cortex. The right cortex measures 1.7 cm. There is no demonstrated renal mass or cyst. There is no right hydronephrosis. US/ABD Limited w/ Elastography IMPRESSION: 1. Liver stiffness measures 7.3 kPa compatible with F2-F3 (Mild to moderate liver fibrosis) Metavir score. Electronically Signed: Loco Mcfarlane MD at 13:50 EDT ,
== END | disposition home or self-care (01) ==
LOC: US 07:17
PROVIDERS: PCP Family Medicine Geriatric Medicine; Referring Provider Family Medicine Geriatric Medicine; Visit Provider Family Medicine Geriatric Medicine
DX: K74.00 Hepatic fibrosis, unspecified (principal)
CPT/HCPCS: 76705; 76981

== ENCOUNTER → 2024-02-29 | Outpatient (CLI) | payer MEDICARE, SELFPAY ==
--- NOTE | 2024-02-29 15:32 | RAD_ITS ---
STUDY: X-RAY - LEFT CALCANEUS REASON FOR EXAM: Male, 73 years old. PAIN TECHNIQUE: 2 view(s) of the calcaneus were obtained. COMPARISON: None. FINDINGS: Normal visualized calcaneus. There is no demonstrated fracture. RAD/Calcaneus min 2 Views IMPRESSION: Normal x-ray examination of the calcaneus. Electronically Signed: Morgan Sewell MD at 23:58 EDT ,
--- NOTE | 2024-02-29 15:40 | RAD_ITS ---
STUDY: X-RAY - LEFT FOOT CLINICAL: Male, 73 years old. PAIN TECHNIQUE: 2 view(s) of the foot. COMPARISON: None. FINDINGS: Normal talus, calcaneus, and tarsal bones. Normal visualized subtalar, talonavicular, calcaneocuboid, tarsal and tarsometatarsal articulations. Normal metatarsi. Normal metatarsophalangeal joint of the great toe. Normal tibial and fibular sesamoid bones. Normal interphalangeal joint of the great toe. Normal phalanges of the great toe. Normal second through fifth metatarsophalangeal joints. Normal interphalangeal joints and phalanges of the lesser toes. The soft tissue structures are unremarkable. There is no demonstrated fracture. RAD/Foot 2 Views IMPRESSION: No definite acute or significant abnormality seen. Electronically Signed: Morgan Sewell MD at 23:57 EDT ,
== END | disposition home or self-care (01) ==
LOC: RAD 15:30
PROVIDERS: PCP Family Medicine Geriatric Medicine; Referring Provider Family Medicine Geriatric Medicine; Visit Provider Family Medicine Geriatric Medicine
DX: M79.672 Pain in left foot (principal)
CPT/HCPCS: 73620; 73650

== ENCOUNTER → 2024-04-29 | Outpatient (CLI) | payer MEDICARE, SELFPAY ==
[2024-04-29 15:55] LABS: Anion Gap 5 (5-15); BUN 13 mg/dL (7-18); BUN/Creat Ratio 12.6 RATIO (10-20); Calcium,Total 9.3 mg/dL (8.5-10.1); Chloride 106 mmol/L (98-107); Creatinine, Serum 1.03 mg/dL (0.70-1.30); EST Glomerular Filtration Rate 75 mL/min (>60); Est Glom Filt Rate - Afr Amer 91 mL/min (>60); Glucose 97 mg/dL (74-106); Potassium 4.6 mmol/L (3.5-5.1); Sodium Level 138 mmol/L (136-145)
== END | disposition home or self-care (01) ==
LOC: POLAB3 15:02
PROVIDERS: PCP Family Medicine Geriatric Medicine; Referring Provider Family Medicine Geriatric Medicine; Visit Provider Family Medicine Geriatric Medicine
DX: E87.1 Hypo-osmolality and hyponatremia (principal)
CPT/HCPCS: 36415; 80048

== ENCOUNTER → 2024-05-06 | Outpatient (CLI) | payer MEDICARE, SELFPAY | END | disposition home or self-care (01) | LOC: POLAB3 10:48 | PROVIDERS: PCP Family Medicine Geriatric Medicine; Visit Provider Family Medicine Geriatric Medicine | DX: N39.0 Urinary tract infection, site not specified (principal) | CPT/HCPCS: 87086 ==

== ENCOUNTER → 2024-05-09 | Outpatient (CLI) | payer MEDICARE, SELFPAY ==
[2024-05-09 13:13] LABS: Absolute Lymphocyte Count 0.93 X10^3/uL (0.83-4.51); Absolute Neutrophil Count 6.2 X10^3/uL (2.0-7.7); Basophil# 0.02 X10^3/uL; Basophil% 0.2 % (0-1); Eosinophil# 0.05 X10^3/uL; Eosinophils% 0.6 % (0-5); Hematocrit 45.2 % (40-54); Hemoglobin 16.1 g/dL (13.0-16.5); Lymphocyte # 0.93 X10^3/ul (0.83-4.51); Lymphocyte % 11.6 % (19-41); Mean Corp Hgb Conc 35.6 g/dL (32-36); Mean Corpuscular Hgb 30.5 pg (27.0-32.0); Mean Corpuscular Volume 85.6 fL (80-94); Mean Platelet Vol. 11.3 fl (6.2-12.0); Monocyte# 0.85 X10^3/uL; Monocyte% 10.6 % (0-10); NRBC Flagged by Analyzer 0 % (0-5); Neutrophil # 6.17 X10^3/uL (2.7-7.7); Neutrophil % 76.6 % (47-70); Platelet Count 208 K/mm3 (150-450); RBC Distribution Width CV 12.9 % (11.6-14.6); RBC Distribution Width SD 39.6 fl (35.1-43.9); Red Blood Count 5.28 M/mm3 (4.6-6.2); White Blood Count 8.1 K/mm3 (4.4-11.0)
[2024-05-09 13:39] LABS: Anion Gap 7 (5-15); BUN 16 mg/dL (7-18); BUN/Creat Ratio 15.1 RATIO (10-20); Chloride 97 mmol/L (98-107); Creatinine, Serum 1.06 mg/dL (0.70-1.30); EST Glomerular Filtration Rate 73 mL/min (>60); Est Glom Filt Rate - Afr Amer 88 mL/min (>60); Glucose 127 mg/dL (74-106); Potassium 4.1 mmol/L (3.5-5.1); Sodium Level 126 mmol/L (136-145)
[2024-05-09 14:08] LABS: Urine Sodium 18 mmol/L (Not Establ.)
[2024-05-09 14:18] LABS: Osmolality, Serum 273 mOsm/KG (280-301)
[2024-05-09 14:40] LABS: Osmolality, Urine 703 mOsm/KG
== END | disposition home or self-care (01) ==
LOC: POLAB3 12:30
PROVIDERS: PCP Family Medicine Geriatric Medicine; Visit Provider Family Medicine Geriatric Medicine
DX: E87.1 Hypo-osmolality and hyponatremia (principal); E78.5 Hyperlipidemia, unspecified; E03.9 Hypothyroidism, unspecified
CPT/HCPCS: 36415; 80048; 83930; 83935; 84300; 85025

== ENCOUNTER → 2024-05-21 | Outpatient (CLI) | payer MEDICARE, SELFPAY ==
[2024-05-21 18:38] LABS: CRP < 2.90 mg/L (0.0-3.0)
[2024-05-27 08:07] LABS: Endomysial Antibody IgA Negative (Negative); Immunoglobulin A 236 mg/dL (61-437); t-Transglutaminase IgA <2 U/mL (0-3)
== END | disposition home or self-care (01) ==
LOC: MTLAB 16:24
PROVIDERS: PCP Family Medicine Geriatric Medicine; Referring Provider Internal Medicine Gastroenterology; Visit Provider Internal Medicine Gastroenterology
DX: R19.7 Diarrhea, unspecified (principal)
CPT/HCPCS: 36415; 82784; 83516; 86140; 86255

== ENCOUNTER → 2024-06-17 | Outpatient (CLI) | payer MEDICARE, SELFPAY ==
[2024-06-17 10:46] LABS: Absolute Lymphocyte Count 1.49 X10^3/uL (0.83-4.51); Absolute Neutrophil Count 3.4 X10^3/uL (2.0-7.7); Basophil# 0.05 X10^3/uL; Basophil% 0.9 % (0-1); Eosinophil# 0.09 X10^3/uL; Eosinophils% 1.6 % (0-5); Hematocrit 42.6 % (40-54); Hemoglobin 14.2 g/dL (13.0-16.5); Lymphocyte # 1.49 X10^3/ul (0.83-4.51); Lymphocyte % 26.4 % (19-41); Mean Corp Hgb Conc 33.3 g/dL (32-36); Mean Corpuscular Hgb 30.2 pg (27.0-32.0); Mean Corpuscular Volume 90.6 fL (80-94); Mean Platelet Vol. 11.2 fl (6.2-12.0); Monocyte# 0.58 X10^3/uL; Monocyte% 10.3 % (0-10); NRBC Flagged by Analyzer 0 % (0-5); Neutrophil # 3.41 X10^3/uL (2.7-7.7); Neutrophil % 60.4 % (47-70); Platelet Count 184 K/mm3 (150-450); RBC Distribution Width CV 12.7 % (11.6-14.6); RBC Distribution Width SD 41.8 fl (35.1-43.9); White Blood Count 5.6 K/mm3 (4.4-11.0)
[2024-06-17 11:14] LABS: Vitamin D,25 Hydroxy 21.4 ng/mL
[2024-06-17 11:20] LABS: ALB/GLOB Ratio 1.1 RATIO (0.9-2.4); AST(SGOT) 29 U/L (15-37); Alanine Aminotransfer ALT/SGPT 42 U/L (16-61); Albumin, Serum 3.9 g/dL (3.2-5.0); Alkaline Phosphatase 46 U/L (45-117); Anion Gap 4 (5-15); BUN 18 mg/dL (7-18); BUN/Creat Ratio 21.3 RATIO (10-20); Calcium,Total 9.2 mg/dL (8.5-10.1); Chloride 104 mmol/L (98-107); Cholesterol 193 mg/dL (200); Creatinine, Serum 0.85 mg/dL (0.70-1.30); EST Glomerular Filtration Rate 94 mL/min (>60); Est Glom Filt Rate - Afr Amer 114 mL/min (>60); Globulin 3.4 g/dL (2.2-4.2); Glucose 110 mg/dL (74-106); High Density Lipoprotein 74 mg/dL; Potassium 4.9 mmol/L (3.5-5.1); Protein, Total 7.3 g/dL (6.4-8.2); Sodium Level 135 mmol/L (136-145); Thyroid Stim Hormone (TSH) 0.099 uIU/mL (0.358-3.740); Triglycerides 122 mg/dL; Very Low Density Lipoprotein 24 mg/dL (5-40)
== END | disposition home or self-care (01) ==
LOC: LAB 10:02
PROVIDERS: PCP Family Medicine Geriatric Medicine; Referring Provider Family Medicine Geriatric Medicine; Visit Provider Family Medicine Geriatric Medicine
DX: I10 Essential (primary) hypertension (principal); E78.5 Hyperlipidemia, unspecified; E55.9 Vitamin D deficiency, unspecified
CPT/HCPCS: 36415; 80053; 80061; 82306; 84443; 85025

== ENCOUNTER → 2024-12-11 | Outpatient (CLI) | payer MEDICARE, SELFPAY ==
[2024-12-11 11:16] LABS: Absolute Lymphocyte Count 1.83 X10^3/uL (0.83-4.51); Absolute Neutrophil Count 2.6 X10^3/uL (2.0-7.7); Basophil# 0.05 X10^3/uL; Eosinophil# 0.08 X10^3/uL; Eosinophils% 1.6 % (0-5); Hematocrit 44.2 % (40-54); Hemoglobin 14.7 g/dL (13.0-16.5); Lymphocyte # 1.83 X10^3/ul (0.83-4.51); Lymphocyte % 36.2 % (19-41); Mean Corp Hgb Conc 33.3 g/dL (32-36); Mean Corpuscular Hgb 29.5 pg (27.0-32.0); Mean Corpuscular Volume 88.6 fL (80-94); Mean Platelet Vol. 11.8 fl (6.2-12.0); Monocyte# 0.53 X10^3/uL; Monocyte% 10.5 % (0-10); NRBC Flagged by Analyzer 0 % (0-5); Neutrophil # 2.55 X10^3/uL (2.7-7.7); Neutrophil % 50.5 % (47-70); Platelet Count 183 K/mm3 (150-450); RBC Distribution Width SD 44.9 fl (35.1-43.9); Red Blood Count 4.99 M/mm3 (4.6-6.2); White Blood Count 5.1 K/mm3 (4.4-11.0)
[2024-12-11 12:38] LABS: Vitamin D,25 Hydroxy 23.7 ng/mL (30-100)
[2024-12-11 12:45] LABS: ALB/GLOB Ratio 1.8 RATIO (0.9-2.4); AST(SGOT) 27 U/L (<=37); Alanine Aminotransfer ALT/SGPT 27 U/L (<=46); Albumin, Serum 4.7 g/dL (3.4-4.8); Alkaline Phosphatase 60 U/L (40-129); Anion Gap 10 (5-15); BUN 18 mg/dL (4-19); BUN/Creat Ratio 18.4 RATIO (10-20); Calcium,Total 9.7 mg/dL (7.6-11.0); Carbon Dioxide 25.3 mmol/L (21.0-32.0); Chloride 104 mmol/L (98-108); EST Glomerular Filtration Rate 79 (>60); Globulin 2.7 g/dL (2.2-4.2); Glucose 104 mg/dL (70-99); Protein, Total 7.4 g/dL (5.9-8.4); Sodium Level 139 mmol/L (133-145); Total Bilirubin 0.49 mg/dL (0.00-1.30)
== END | disposition home or self-care (01) ==
PROVIDERS: PCP Family Medicine Geriatric Medicine; Referring Provider Family Medicine Geriatric Medicine; Visit Provider Family Medicine Geriatric Medicine
DX: I10 Essential (primary) hypertension (principal); E55.9 Vitamin D deficiency, unspecified
CPT/HCPCS: 36415; 80053; 82306; 84443; 85025

== ENCOUNTER → 2025-02-14 | Outpatient (CLI) | payer MEDICARE, SELFPAY ==
--- NOTE | 2025-02-14 12:25 | CT_ITS ---
PROCEDURE: BRAIN/HEAD WITHOUT CONTRAST 02/14/2025 REASON FOR EXAM: HEADACHE TECHNIQUE: BRAIN/HEAD WITHOUT CONTRAST Coronal and Sagittal reconstruction series were provided. One or more dose reduction techniques were used (e.g., Automated exposure control, adjustment of the mA and/or kV according to patient size, use of iterative reconstruction technique. RADIATION DOSE SUMMARY: CTDlvol: 45 mGy DLP: 863 mGycm COMPARISON: August 22, 2022 FINDINGS: Brain: There is no evidence of hemorrhage, acute ischemia or mass. No extra- axial fluid collection, midline shift or mass effect. CSF Spaces: Normal Sinuses/Mastoids: Clear Bones: No fracture Bilateral lens implants. Cavernous and supraclinoid internal carotid artery atherosclerotic change. CT/Brain/Head without Contrast IMPRESSION: No acute intracranial abnormality Reading Location: [id number]
--- NOTE | 2025-02-14 12:30 | RAD_ITS ---
PROCEDURE: CERV SPINE 2 OR 3 VIEWS 02/14/2025 REASON FOR EXAM: CERVICAL DISC DISORDER, UNSPECIFIED, UNSPECIFIED CERVICAL REGION TECHNIQUE: CERV SPINE 2 OR 3 VIEWS COMPARISON: Cervical spine, 12/07/2020. FINDINGS: There is loss of the normal cervical lordosis. There are no compression fractures. There is degenerative disc disease C3-4 through C7-T1 with narrowing of the intervertebral disc spaces and marginal osteophytes. There is multilevel facet arthropathy. There is degenerative grade 1 anterolisthesis of C3 on C4. RAD/Cerv Spine 2 or 3 Views IMPRESSION: 1. Multilevel degenerative disc disease with cervical spasm. 2. Degenerative grade 1 anterolisthesis of C3 on C4. Reading Location: [id number]
== END | disposition home or self-care (01) ==
LOC: CT 12:15
PROVIDERS: PCP Family Medicine Geriatric Medicine; Referring Provider Family Medicine Geriatric Medicine; Visit Provider Family Medicine Geriatric Medicine
DX: M50.90 Cervical disc disorder, unspecified, unspecified cervical region (principal)
CPT/HCPCS: 70450; 72040

== ENCOUNTER 2025-03-24 16:51 | Outpatient (RCR) | payer MEDICARE, SELFPAY ==
--- NOTE | 2025-03-26 11:01 | HP.FCE ---
Task Lift Floor (Occasional 1-33% of Day): 30# Floor (Frequent 34-66% of Day): NA Floor (Constant 67-100% of Day): NA Floor PDL: Light Knee (Occasional 1-33% of Day): 45# Knee (Frequent 34-66% of Day): NA Knee (Constant 67-100% of Day): NA Knee PDL: Light-Medium Waist (Occasional 1-33% of Day): 45# Waist (Frequent 34-66% of Day): NA Waist (Constant 67-100% of Day): NA Waist PDL: Light-Medium Shoulder (Occasional 1-33% of Day): 30# Shoulder (Frequent 34-66% of Day): NA Shoulder (Constant 67-100% of Day): NA Shoulder PDL: Light Overhead (Occasional 1-33% of Day): 25 Overhead (Frequent 34-66% of Day): NA Overhead (Constant 67-100% of Day): NA Overhead PDL: Light Comments: Light physical demand level for lifting at floor, shoulder and overhead - pt can not lift on a frequent or constant ability due to pain level. Light-Medium physical demand level for lifting at waist and knee level. Pt can not lift on a frequent or constant ability due to pain level Work Activity/Posture Bending: Frequent Ability (34-66% of day) Squatting: Frequent Ability (34-66% of day) Kneeling: Occasional Ability (1-33% of day) Comments: with external support Reaching out: Occasional Ability (1-33% of day) Comments: low occasional ability pain limiting pt Reaching up: Occasional Ability (1-33% of day) Comments: low occasional ability pain limiting pt Sitting: Frequent Ability (34-66% of day) Walking: Frequent Ability (34-66% of day) Standing: Frequent Ability (34-66% of day) Reference Reference: Duration Sedentary Sedentary Light Light Light Medium Medium Medium Heavy Very Heavy Heavy Occasional (0-33% of day) Frequent (34-66% of day) Constant (67-100% of day) 10 # Negligible Negligible 15 # 8 # Negligible 20 # 10# Negli. 35 # 18 # 7 # 50 # 25 # 10 # 75 # 100 # >100 # 38 # 50 # >50 # 15 # 20 # >20 # Patient Information Height: 1.75 m Weight:: 92.986 kg Hand Dominance: right Medical History Medical History Including Restrictions: pt states about 8 weeks ago he started with headaches in the AM. and pain on left side of his neck. Pt states about 3 weeks later he was getting sharp pains on left side of head and neck- pt went to and was given a shot and this made him sleepy- pt states after this he went to ortho Dr. Tilley at [facility]. Was given medication again and this was not helping. Pt now has had a change in his medication and now headaches are gone but neck is still bothersome. pt went to PT at [facility] and a MRI was recommended by the physical therapist. He states he has not had one done at this time. x ray do show C 2-3-4 were detreating. pt states he has not seen a orthopedic irrigation specialist at this time. pt states he is very active and likes to bike 50 miles, works outside and does the yard work. Diagnoses Diagnoses: cervical spondylosis X-ray FINDINGS: There is loss of the normal cervical lordosis. There are no compression fractures. There is degenerative disc disease C3-4 through C7-T1 with narrowing of the intervertebral disc spaces and marginal osteophytes. There is multilevel facet arthropathy. There is degenerative grade 1 anterolisthesis of C3 on C4. 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 pt states he works 36+ hours a week. pt works 12 hours 8pm to 8am 3 days a week. 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 pt last worked about 5 weeks ago ( end of ) Behavioral Behavioral: pt cooperative throughout assessment ADLS ADLS: pt lives with his in one story ranch ( [place] home) 5 entry with two railings. pt has walk in shower- has shower chair but does not use. pt is ind. with ADls and yard work driving. pt states he is able to perform all ADLs and IADls now at IND level that his headache are more controlled. Physical Examination ROM: pt demo limited neck crepitus with ROM of lateral neck motion and flexion and ext on neck. all other ROM WNL Strength: fet2 peak force hip flexion right 40# left 31# quadriceps right 34# left 32# hamstrings right 47# left 41# triceps right 26# left 16# with pain on left side of neck and tingling throughout bilateral scapula biceps 18# left 13# with pain Right Analytical Laboratory Technician Strength Average: 93.33 Left Analytical Laboratory Technician Strength Average: 85.00 Right Lateral Pinch Average: 18.00 Right Lateral Pinch Percentile: 50% Left Lateral Pinch Average: 8.66 Left Lateral Pinch Percentile: <10% Right Tripod Pinch Average: 16.66 Right Tripod Pinch Percentile: 50% Left Tripod Pinch Average: 6.00 Left Tripod Pinch Percentile: <10% Sensation: monofilament sensation thumb right 3.61 left 3.61 interpretation diminished light touch Index finger right 3.61 interpretation diminished light touch left 2.83 normal sensation Middle finger right 3.22 left 3.22 interpretation diminished light touch Ring finger right 3.22 interpretation diminished light touch left 2.83 normal sensation Little finger right 3.22 interpretation diminished light touch left 2.83 normal sensation Fine Motor: 9 hole peg test right 28.3 seconds 25% for his age left 32.50 seconds 10th% for his age Balance: pt demo good balance no loss of balance throughout assessment. Non Material Handling Activities Bending: pt demo the ability to bend forward 3/3x, headache more painful 10/10x, and 10/10x rapidly resting heart rate 67 pt can bend forward on frequent ability headache 4/10 Squatting: pt demo the ability to squat 3/3x, 10/10x and 10/10x rapidly heart rate 109 pt can squat on frequent ability Kneeling: pt demo the ability to ability to kneel 3/3x , 10/10x with external support neck pain with task pt can kneel occasional with external support Reaching out/up: pt demo the ability to reach out 3/3x with left neck pain ( 5/10) 10/10x pt can reach out on occasional ability with left UE pt can reach out on frequent ability with right UE pt no ability to reach up with left UE pt demo the ability to reach up 3/3x, 10/10x with symptoms of tingling in his fingers pt can reach up/out on low occasional ability Walking: pt reports no deficits with ambulation- pt walks with a steady reciprocal gait pattern for 15 min. pt can ambulate on frequent ability Standing: pt demo the ability to stand for 8 min no apparent or expressed discomfort pt can stand on frequent ability Sitting: pt demo the ability to sit for 45 min with no apparent discomfort. pt can sit on frequent ability Climbing Stairs: pt demo the ability to ascend and descend 10 steps IND with no difficulty . Dynamic Occasional Lifting Capacity Floor Lift: pt demo the ability to lift 30# maximally from floor level with good lifting mechanics. Knee Lift: pt demo the ability to lift 45 #maximally from knee level with apparent pain in neck ( pt grab left side of neck and cried out in pain) he apologized said something just catches in his neck. Waist Lift: pt demo the ability to lift 45 #maximally from waist level with apparent pain in neck ( pt grab left side of neck and cried out in pain) he apologized said something just catches in his neck. Shoulder Lift: pt demo the ability to lift 30# maximally from this level with fair ability- reports left side neck pain and tingling in bilateral arms Overhead Lift: pt demo the ability to lift 25# maximally from this level. pt reports increase in neck pain Carrying: Not tested due to neck pain / a increase from 10 as well as symptoms of tingling down both arms. Comments: pt put good effort into assessment- pt limited with use of bilateral UE due to pain levels ( shooting pain) symptoms of tinging also increase with increased use of bilateral UE. pain is limiting pt at this time.
--- NOTE | 2025-03-26 11:02 | HP.OTFCE.D ---
FCE D/C Summary Discharge text: SUNITA TOTH was seen for a one time visit for an FCE on 03/24/25 and is discharged.
== END 2025-03-24 19:00 | disposition home or self-care (01) ==
LOC: OT 16:51
PROVIDERS: PCP Family Medicine Geriatric Medicine; Referring Provider Anesthesiology; Visit Provider Anesthesiology
DX: M47.812 Spondylosis without myelopathy or radiculopathy, cervical region (principal); G44.86 Cervicogenic headache
CPT/HCPCS: 97750

== ENCOUNTER → 2025-04-04 | Outpatient (CLI) | payer MEDICARE, SELFPAY ==
--- NOTE | 2025-04-04 06:30 | MRI_ITS ---
PROCEDURE: SPINE CERVICAL (ROUTINE) 04/04/2025 REASON FOR EXAM: CERVICALGIA TECHNIQUE: Procedure Code: MRISP Modality: MR Procedure: SPINE CERVICAL (ROUTINE) Multiplanar and multisequence images were obtained without IV contrast administration. FINDINGS: Diffuse spondylosis and mild diffuse midcervical kyphosis. No compression fracture. Degenerative endplate changes with otherwise normal marrow signal intensity. Visualized portions of the brainstem, cerebellum, cervical and upper thoracic spinal cord exhibit normal signal intensity. Bilateral facet arthrosis at all cervical levels. C2-3: Small disc bulge. Severe left foraminal stenosis. C3-4: Grade 1 anterolisthesis. Disc bulge. [id number] spinal stenosis and mild cord effacement. Moderately severe right and severe left foraminal stenosis. C4-5: Grade 1 retrolisthesis. Disc bulge. Mild spinal stenosis. Moderately severe bilateral foraminal stenosis. C5-6: Grade 1 retrolisthesis. Disc bulge. [id number]-[id number]-[id number] spinal stenosis. Severe bilateral foraminal stenosis. C6-7: Grade 1 retrolisthesis. Disc bulge. Slight spinal stenosis. Severe bilateral foraminal stenosis. C7-T1: Disc bulge. [id number] bilateral foraminal stenosis. T2-3: Small disc bulge and mild right foraminal stenosis. T3-4: Small disc bulge and mild right foraminal stenosis. T4-5: Small disc bulge and mild right foraminal stenosis. No other significant disc bulge or herniation is identified. Remaining intervertebral foramina and spinal canal appear adequately patent. Surrounding soft tissues appear otherwise unremarkable. MRI/Spine Cervical (Routine) IMPRESSION: Mild cord effacement at C3-4. Milder spinal stenoses at C4-7. Foraminal stenoses at C2-T1 and T2-5, severe at multiple cervical levels. Spondylosis, kyphosis, spondylolisthesis, and disc bulges. Reading Location: [id number]
== END | disposition home or self-care (01) ==
LOC: MRI 06:24
PROVIDERS: PCP Family Medicine Geriatric Medicine; Referring Provider Family Medicine Geriatric Medicine; Visit Provider Family Medicine Geriatric Medicine
DX: M54.2 Cervicalgia (principal)
CPT/HCPCS: 72141

== ENCOUNTER 2025-04-09 09:43 | Emergency (ER) | payer MEDICARE, SELFPAY ==
[2025-04-09 09:45] VITALS: BP 177/80; PULSE 70; RESP 20; TEMP 35.9; O2SAT 97; BMI 35.8
--- NOTE | 2025-04-09 10:05 | ED.RN ---
history of nonepileptic psycogentic seizures
--- NOTE | 2025-04-09 10:10 | EKG12_ITS ---
Test Reason : RHYTHM CHANGE Blood Pressure : */* mmHG Vent. Rate : 68 BPM Atrial Rate : 68 BPM P-R Int : 158 ms QRS Dur : 84 ms QT Int : 394 ms P-R-T Axes : 14 9 20 degrees QTcB Int : 418 ms Normal sinus rhythm Normal ECG Confirmed by ESTELITA CHATMAN, JERONIMO ([id number]), news editor GIRISH FRIEND ([id number]) on 04/10/2025 10:00:08 AM Referred By: Confirmed By: JERONIMO CAPONE MD
[2025-04-09] MEDS: 0.9% Normal Saline (1000mL) 1,000 ML 1000 ML IV (10:20)
[2025-04-09 10:26] LABS: Hematocrit 45.8 % (40-54); Hemoglobin 15.1 g/dL (13.0-16.5); Immature Granulocytes Count 0.100 X10^3/uL (0.0-0.0); Mean Corp Hgb Conc 33.0 g/dL (32-36); Mean Corpuscular Volume 92.2 fL (80-94); Mean Platelet Vol. 10.9 fl (6.2-12.0); NRBC Flagged by Analyzer 0 % (0-5); Platelet Count 152 K/mm3 (150-450); RBC Distribution Width CV 16.0 % (11.6-14.6); RBC Distribution Width SD 53.8 fl (35.1-43.9); Red Blood Count 4.97 M/mm3 (4.6-6.2); White Blood Count 6.8 K/mm3 (4.4-11.0)
--- NOTE | 2025-04-09 10:29 | CT_ITS ---
PROCEDURE: CTA HEAD AND NECK W/ CONTRAST 04/09/2025 REASON FOR EXAM: SEIZURE, CHRONIC PAIN TECHNIQUE: Procedure Code: CTCTA.HDNCK Modality: CT Procedure: CTA HEAD AND NECK W/ CONTRAST Multiplanar Sagittal and Coronal images were obtained. 3D post processing was performed CONTRAST: Isovue 370 VOLUME: 100 mL One or more dose reduction techniques were used (e.g., Automated exposure control, adjustment of the mA and/or kV according to patient size, use of iterative reconstruction technique). RADIATION DOSE SUMMARY: CTDlvol: 24.6 mGy DLP: 784.87 mGycm COMPARISON: CT scan of the brain dated August 22, 2022. FINDINGS: Aortic Arch: Normal size and branching pattern. No significant atherosclerotic plaque. Brachiocephalic and Subclavians: Unremarkable RIGHT Carotid: Right CCA: Unremarkable. Right ICA: Unremarkable. Right ECA: Unremarkable. LEFT Carotid: Left CCA: Unremarkable. Left ICA: Unremarkable. Left ECA: Unremarkable. Vertebrals: Dominant left vertebral artery. RIGHT Vertebral: Unremarkable. LEFT Vertebral: Unremarkable. Anatomy: [place] anatomy is normal. Aneurysm or avm: No intracranial aneurysms or large vascular malformations are identified. Anterior cerebral arteries: Unremarkable: Middle cerebral arteries: Unremarkable. Basilar artery: Unremarkable. Posterior cerebral arteries: Unremarkable. Other major branches of the posterior circulation: Unremarkable. Major venous structures: Unremarkable. Other findings: Neck: Lungs: Bones: CT/CTA Head AND Neck W/ Contrast IMPRESSION: Unremarkable examination. Reading Location: [place] [id number]
--- NOTE | 2025-04-09 10:31 | EX.ED.DYSGE1 ---
HPI History of Present Illness Chief Complaint: Seizure Narrative Narrative: Chief complaint and HPI: 74-year-old gentleman with past medical history of psychiatric pseudoseizures, HTN, GERD, hypothyroidism who presents as a rapid response for unresponsive episode. Patient states for the past several weeks he has been having neck pain, headache, and bilateral paresthesias in the hands. States that due to the pain he has had difficulty sleeping. States he has been up all night watching movies. Patient was receiving nerve conduction testing today when he had multiple unresponsive episode. Episodes described as patient blanking out and staring off in space. Lasted several seconds and then would startle awake without any confusion. No tonic-clonic activity. No bowel or urinary incontinence. On presentation, patient does this multiple times while examining him. He has no nystagmus during the episodes and blinks when eyelids are irritated. Once I stated I was going to give him Ativan he stopped having these episodes. He denies any fever, chills, shortness of breath, chest pain, URI symptoms, nausea, vomiting, dysuria. Review of systems: See HPI Medications: As listed on the chart Allergies: As listed on the chart PFSH: Per chart Vital signs: As listed on the chart. Reviewed. Physical exam: Gen: A&O x3, NAD Head: Normocephalic, atraumatic Eyes: No sclera icterus, conjunctiva clear, PERRL, EOMI, no nystagmus ENT: TMs clear BL, moist mucous membranes, posterior oropharynx unremarkable, uvula midline, no facial asymmetry Neck: Trachea midline, No JVD, Full ROM, No meningismus CV: RRR, no murmurs, no peripheral edema Resp: Lungs CTA BL, no w/r/c GI: Abd soft, non-distended, non-tender, no r/r/g Musc: Full ROM, no deformity, strength was 5 out of 5 in all extremities Skin: Warm, dry, no rash Neuro: Alert, oriented, grossly intact, sensation intact Psych: Cooperative, appropriate mood and affect 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 Unintentional weight loss Home Medications ?Medication ?Instructions ?Recorded ?Last Taken ?Type ibuprofen 600 mg tablet 600 mg PO TID PRN pain #30 tabs 05/07/19 01/31/20 Rx gabapentin 800 mg tablet 400 mg (1/2 x 800 mg) PO TID #90 06/02/20 Unknown Rx tabs lisinopril 10 mg tablet 10 mg PO DAILY #90 tabs 04/28/21 Unknown Rx amlodipine 10 mg tablet 10 mg PO DAILY #90 tabs 05/26/21 Unknown Rx citalopram 20 mg tablet 20 mg PO DAILY 07/22/21 Unknown History levothyroxine 125 mcg tablet 137 mcg PO DAILY thyroid 01/07/22 Unknown History testosterone IM Q2W 03/14/22 Unknown History Allergy/AdvReac Type Severity Reaction Status Date / Time No Known Allergies Allergy Verified 04/09/25 09:45 Family History Father Heart disease Mother Diabetes Brother Diabetes Surgical History History of back surgery History of cranial surgery History of knee replacement History of orthopedic surgery History of shoulder surgery history of skin graph Social History Smoking Status: Never smoker alcohol intake: current alcohol intake frequency: holidays/special occasions only substance use type: marijuana caffeine: No what type of physical activity do you participate in: bicycling frequency: 5-6 times per week EXAM Physical Exam Const Vital Signs: 04/09/25 09:45 04/09/25 11:44 04/09/25 13:00 Temperature 96.7 F L Temperature Source Axillary Pulse Rate 70 57 L 58 L Respiratory Rate 20 H 14 14 Blood Pressure 177/80 H 117/89 H 106/54 L Blood Pressure Mean 112 98 71 Pulse Ox 97 99 99 Oxygen Delivery Method Room Air MDM MDM MDM Narrative Medical decision making narrative: 74-year-old gentleman with past medical history of psychiatric pseudoseizures, HTN, GERD, hypothyroidism who presents as a rapid response for unresponsive episode. Patient states for the past several weeks he has been having neck pain, headache, and bilateral paresthesias in the hands. States that due to the pain he has had difficulty sleeping. States he has been up all night watching movies. Patient was receiving nerve conduction testing today when he had multiple unresponsive episode. Episodes described as patient blanking out and staring off in space. Lasted several seconds and then would startle awake without any confusion. No tonic-clonic activity. No bowel or urinary incontinence. On presentation, patient does this multiple times while examining him. He has no nystagmus during the episodes and blinks when eyelids are irritated. They appear to be psychogenic. Once I said out loud that I was going to give him Ativan for, episodes immediately stopped. He is not postictal after the episodes. Differential diagnosis includes but is not limited to psychiatric pseudoseizures, electrolyte abnormality, dehydration, UTI, intoxication, arrhythmia, intracranial abnormality. Given patient's chronic neck pain will get CT head with CTA head and neck along with laboratory workup. NS bolus ordered. Patient continues to do the episodes while getting workup. Nursing staff spoke with his for the phone who is out of town. She states that they usually improved with Ativan. Ativan ordered. CBC without leukocytosis or anemia. CMP relatively unremarkable. Magnesium elevated at 2.6. Patient getting fluids. Lactic acid unremarkable. This should be elevated if these were true seizures. TSH unremarkable. UA negative for UTI. Alcohol level unremarkable. Troponin unremarkable. CT of the head and CTA head and neck unremarkable. Urine drug screen negative except for cannabinoids. Suspect patient's symptoms were secondary to psychiatric pseudoseizures. On reevaluation, patient is no longer having pseudoseizures. Patient states he follows with Dr. Sandoval. Does not follow with a psychiatrist or neurologist. Dr. Sandoval was contacted and patient was discussed. He confirmed understanding. He will see the patient in the office outpatient. Patient will not be able to drive home given his pseudoseizures as well as receiving Ativan. He confirmed understanding. Patient is stable to discharge home. Will have a ride arranged. EKG: Interpreted by me/EM physician: EKG shows normal sinus rhythm without any acute ischemic changes. Heart rate 68. Diagnostic: Interpreted by me/EM physician: Chest x-ray without pneumonia, effusion, cardiomegaly, pneumothorax. Radiology in agreement. Impression Impression: 1. Psychiatric pseudoseizure 2. History of psychiatric pseudoseizures Lab Data Labs: Laboratory Results - last 24 hr 04/09/25 04/09/25 04/09/25 09:50 10:12 10:55 WBC 6.8 RBC 4.97 Hgb 15.1 Hct 45.8 MCV 92.2 MCH 30.4 MCHC 33.0 RDW Std Deviation 53.8 H RDW Coeff of Nicole 16.0 H Plt Count 152 MPV 10.9 Immature Gran % (Auto) 1.500 H Neut % (Auto) 47.6 Lymph % (Auto) 35.1 Zavala % (Auto) 14.3 H Eos % (Auto) 0.6 Baso % (Auto) 0.9 Absolute Neuts (auto) 3.2 Absolute Lymphs (auto) 2.39 Nucleated RBC % 0 Sodium 138 Potassium 5.0 Chloride 105 Carbon Dioxide 21.8 Anion Gap 11 BUN 27 H Creatinine 0.90 Estim Creat Clear Calc 88.02 Est GFR (MDRD) Non-Af 90 BUN/Creatinine Ratio 30.4 H Glucose 90 Lactic Acid 1.1 Calcium 8.9 Magnesium 2.6 H Total Bilirubin 0.34 AST 26 ALT 26 Alkaline Phosphatase 28 L Troponin T High Sens 9 Total Protein 6.5 Albumin 4.1 Globulin 2.5 Albumin/Globulin Ratio 1.7 TSH 1.390 Free T4 1.30 Urine Color Urine Clarity Urine pH Ur Specific [place] Urine Protein Urine Glucose (UA) Urine Ketones Urine Occult Blood Urine Nitrite Urine Bilirubin Urine Urobilinogen Ur Leukocyte Esterase Urine RBC Urine WBC Ur Squamous Epith Cells Urine Bacteria Urine Mucus Urine Opiates Screen U Buprenorphine Qual Ur Oxycodone Screen Urine Methadone Screen Urine Fentanyl Screen Ur Barbiturates Screen Ur Phencyclidine Scrn Ur Amphetamines Screen U Benzodiazepines Scrn Urine Cocaine Screen U Cannabinoids Screen Ethyl Alcohol < 10.1 POC Glucose 90 04/09/25 12:00 WBC RBC Hgb Hct MCV MCH MCHC RDW Std Deviation RDW Coeff of Nicole Plt Count MPV Immature Gran % (Auto) Neut % (Auto) Lymph % (Auto) Zavala % (Auto) Eos % (Auto) Baso % (Auto) Absolute Neuts (auto) Absolute Lymphs (auto) Nucleated RBC % Sodium Potassium Chloride Carbon Dioxide Anion Gap BUN Creatinine Estim Creat Clear Calc Est GFR (MDRD) Non-Af BUN/Creatinine Ratio Glucose Lactic Acid Calcium Magnesium Total Bilirubin AST ALT Alkaline Phosphatase Troponin T High Sens Total Protein Albumin Globulin Albumin/Globulin Ratio TSH Free T4 Urine Color Yellow Urine Clarity Clear Urine pH 7.0 Ur Specific Hickman 1.010 Urine Protein Negative Urine Glucose (UA) Normal Urine Ketones Negative Urine Occult Blood Negative Urine Nitrite Negative Urine Bilirubin Negative Urine Urobilinogen Normal Ur Leukocyte Esterase Negative Urine RBC 0 SEEN Urine WBC 0-5 SEEN Ur Squamous Epith Cells 0 SEEN Urine Bacteria 0 SEEN Urine Mucus 0 SEEN Urine Opiates Screen NEGATIVE U Buprenorphine Qual NEGATIVE Ur Oxycodone Screen NEGATIVE Urine Methadone Screen NEGATIVE Urine Fentanyl Screen NEGATIVE Ur Barbiturates Screen NEGATIVE Ur Phencyclidine Scrn NEGATIVE Ur Amphetamines Screen NEGATIVE U Benzodiazepines Scrn NEGATIVE Urine Cocaine Screen NEGATIVE U Cannabinoids Screen PRESUMPTIVE POSITIVE Ethyl Alcohol POC Glucose Radiography Diagnostic Testing: Clinical Impression(s) from Imaging Studies Head/Neck CTA 04/09/25 10:29 IMPRESSION: Unremarkable examination. Reading Location: [facility]- Chest X-Ray 04/09/25 10:35 IMPRESSION: Borderline cardiomegaly. The lungs are clear. Reading Location: [place] [id number] Discharge Plan Triage Chief Complaint: Seizure ED Provider: Jose G Valadez Dx/Rx/DC Orders Prescriptions: No Action ibuprofen 600 mg tablet 600 mg PO TID PRN (Reason: pain) Qty: 30 0RF Rx Instructions: take with food gabapentin 800 mg tablet 400 mg PO TID Qty: 90 2RF Patient Comments: just increased from 600 mg BID yesterday takes for nerve damage citalopram 20 mg tablet 20 mg PO DAILY testosterone IM Q2W Patient Comments: Injection per patient; dose unknown levothyroxine 125 mcg tablet 137 mcg PO DAILY lisinopril 10 mg tablet 10 mg PO DAILY Qty: 90 2RF Patient Comments: takes for BP amlodipine 10 mg tablet 10 mg PO DAILY Qty: 90 3RF Primary Care Provider: Silverio Sandoval Chi Referrals: Silverio Sandoval Chi, MD [Primary Care Provider, Geriatrics] Print Language: Senegalese
--- NOTE | 2025-04-09 10:32 | ED.RN ---
IN ROOM, PT DEMANDING TO HAVE HIS SWEATSHIRT. OFFERED PT BLANKET. PT SCREAMS AT THIS RNYOU DON'T KNOW WHAT I AM GOING THRU, I HAVE BEEN WEARING THIS FOR 8 DAYS, I HAVE TO HAVE IT. PT GIVEN SHIRT, AND HE PROCEEDS TO CUDDLE IT UP TO HIS FACE. PT REQUESTED SOMETHING FOR A HEADACHE. PT OFFERED TYLENOL, PT SCREAMS YOU WON'T GIVE ME ANYTHING STRONGER, I AM AT A HOSPITAL. DR MENDEZ
--- NOTE | 2025-04-09 10:35 | RAD_ITS ---
PROCEDURE: CHEST 1 VIEW 04/09/2025 REASON FOR EXAM: SEIZURE TECHNIQUE: Frontal view of the chest. COMPARISON: None FINDINGS: Hardware: EKG electrodes are seen. Heart: Borderline cardiomegaly. Lungs: The lungs are clear. Bones: Degenerative changes are identified within the thoracic spine. RAD/Chest 1 View IMPRESSION: Borderline cardiomegaly. The lungs are clear. Reading Location: [facility]
[2025-04-09 11:11] LABS: Alcohol, Blood (Medical)-Serum < 10.1 mg/dL (<=10.0)
[2025-04-09 11:12] LABS: Magnesium 2.6 mg/dL (1.5-2.2)
[2025-04-09 11:13] LABS: AST(SGOT) 26 U/L (<=37); Alanine Aminotransfer ALT/SGPT 26 U/L (<=46); Albumin, Serum 4.1 g/dL (3.4-4.8); Alkaline Phosphatase 28 U/L (40-129); Anion Gap 11 (5-15); BUN 27 mg/dL (4-19); BUN/Creat Ratio 30.4 RATIO (10-20); Calcium,Total 8.9 mg/dL (7.6-11.0); Carbon Dioxide 21.8 mmol/L (21.0-32.0); Chloride 105 mmol/L (98-108); Estimated Creatinine Clearance 88.02 ml/min (50-250); Globulin 2.5 g/dL (2.2-4.2); Glucose 90 mg/dL (70-99); Potassium 5.0 mmol/L (3.3-5.1)
[2025-04-09 11:38] LABS: Troponin T High Sensitivity 9 ng/L (<=22)
[2025-04-09 11:44] VITALS: BP 117/89; PULSE 57; RESP 14; O2SAT 99
[2025-04-09 12:18] LABS: Color, Urine Yellow (Yellow); Glucose, Dipstick Normal (Normal); Ketone-Dipstick Negative (Negative); Leukocyte Esterase-Dipstick Negative /ul (Negative); Nitrite-Dipstick Negative (Negative); Occult Blood-Urine Negative /ul (Negative); Protein-Dipstick Negative (Negative); Specific Gravity, Urine 1.010 (1.002-1.030); Urine Bilirubin Dipstick Negative (Negative)
[2025-04-09 12:27] LABS: Mucous, Urine 0 SEEN /hpf (<or=2+); Red Blood Cells-Urine 0 SEEN /hpf (0-5); Squamous Epithelial Cells - UA 0 SEEN /hpf (0-5)
[2025-04-09 12:51] LABS: Barbiturate Urine NEGATIVE (< 200 ng/mL); Benzodiazepine Urine NEGATIVE (< 200 ng/mL); PCP Urine NEGATIVE (< 25 ng/mL); THC Urine PRESUMPTIVE POSITIVE (< 50 ng/mL)
[2025-04-09 13:00] VITALS: BP 106/54; PULSE 58; RESP 14; O2SAT 99
[2025-04-09 13:37] VITALS: BP 106/54; PULSE 58; RESP 14; TEMP 36.6; O2SAT 99
== END 2025-04-09 15:00 | disposition home or self-care (01) ==
PROVIDERS: Emergency Provider Surgery; PCP Family Medicine Geriatric Medicine; Visit Provider Surgery
DX: G40.89 Other seizures (principal); I10 Essential (primary) hypertension; Z85.831 Personal history of malignant neoplasm of soft tissue; E03.9 Hypothyroidism, unspecified; Z79.890 Hormone replacement therapy; Z79.899 Other long term (current) drug therapy; Z96.659 Presence of unspecified artificial knee joint
CPT/HCPCS: 70496; 70498; 71045; 80053; 80307; 81001; 82077; 82962; 83605; 83735; 84439; 84443; 84484; 85025; 93005; 96361; 96374; 99284; Q9967; A4216

== ENCOUNTER 2025-05-14 17:29 | Observation (INO) | payer MEDICARE, SELFPAY ==
[2025-04-30 12:24] LABS: Partial Thromboplast Time 28.3 Seconds (24.1-36.2)
[2025-04-30 12:44] LABS: Valproic Acid (Depakene) Level 56 ug/mL (50-100)
[2025-04-30 12:56] LABS: Magnesium 2.4 mg/dL (1.5-2.2)
--- NOTE | 2025-04-30 15:57 | PAT.ANESEVAL ---
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 When Was Last Pacemaker Check QUESTION #4 FULL TEXT: You/Your Family Experience fever (hyperthermia) with Anesthesia Last Oral Intake Last Oral intake: Last Oral Intake NPO since Meds taken in AM with sips of water? Meds patient instructed to take am of surgery PONV PONV - inspector soldering: PONV - inspector soldering Female No 04/30/25 15:40 HX of Motion Sickness No 04/30/25 15:40 HX of N/V After Surgery No 04/30/25 15:40 Non-Smoker Yes 04/30/25 15:40 Duration of Surgery greater Yes 04/30/25 15:40 than 60 minutes Number of Risk Factors 2 04/30/25 15:40 PONV Score Moderate Risk 04/30/25 15:40 Height & Weight Height & Weight: Anesthesia: Height & Weight Height 5 ft 9 in 04/15/25 09:11 Respiratory Assessment Respiratory Assessment - inspector soldering: Respiratory Tract Infection Hx - inspector soldering Hx Respiratory Tract Infection No 04/30/25 15:40 STOP Sleep Apnea STOP Sleep Apnea - inspector soldering: STOP Sleep Apnea - inspector soldering Hx Hypertension Yes: CONTROLLOED ON MED 04/30/25 15:40 Hx Sleep Apnea No 04/30/25 15:40 CPAP No 04/30/25 15:40 BIPAP No 04/30/25 15:40 Do you snore loudly (louder Yes 04/30/25 15:40 than talking or can be heard Do you often feel tired/ No 04/30/25 15:40 fatigued/ sleepy during daytime? Has anyone observed you stop No 04/30/25 15:40 breathing during sleep? STOP Results Positive 04/30/25 15:40 QUESTION #5 FULL TEXT : Do you snore loudly (louder than talking or can be heard through closed doors)? Tobacco Use History Tobacco Use History - inspector soldering: Tobacco Use History - inspector soldering Tobacco Use Smoking Status Never smoker 04/30/25 15:40 Hx Tobacco Use No 04/30/25 15:40 Years Smoking Packs Smoked per Day Smoking Cessation Date was within the last 15 years Hx Smoking Cessation Date 01/31/70 04/30/25 15:40 Hx Smoking Cessation Counseling Hematologic Medial History Hematologic Hx - inspector soldering: Hematologic Medical Hx - executive vp Hx of Blood Transfusion No 04/30/25 15:40 Hx of Transfusion in last 3 No 04/30/25 15:40 Months Date of Last Transfusion (if within last 3 months) Ever experience any problems No 04/30/25 15:40 with transfusion(s)? Specify any problems Hx of Preganancy in last 3 N/A 04/30/25 15:40 Months Nurse Filling Out Transfusion VCHRISTIN 04/30/25 15:40 & Questions: Date: 04/30/25 04/30/25 15:40 Time: 15:42 04/30/25 15:40 Patient unable to answer at this time (ie. confused, unrespo /Reproduction History /Reproductive History - inspector soldering: /Reproductive Hx- inspector soldering Hx Now No 04/30/25 15:40 Gestational Age (in weeks): EDC: Hx Hx Para Hx Section SAB No 04/30/25 15:40 Does the father of the baby or his family experience fever w Father of the baby Malignant Hypertension history comment [facility] Medical History (Updated 04/30/25 @ 15:40 by Lizette Schneider) Wears glasses Cancer History of steroid therapy Thyroid disease Non-smoker History of echocardiogram Cervical spinal stenosis Bulging of cervical intervertebral disc Spondylolisthesis Obesity (BMI 30-39.9) Psychogenic nonepileptic seizure Chronic diarrhea Malignant neoplasm of connective and soft tissue, unspecified Hepatic fibrosis Appetite loss Unintentional weight loss Sarcoma of right lower extremity Back pain Migraines Fatigue HTN (hypertension) Hypothyroidism Chronic pain Home Medications ?Medication ?Instructions ?Recorded ?Last Taken ?Type ibuprofen 600 mg tablet 600 mg PO TID PRN pain #30 tabs 05/07/19 01/31/20 Rx lisinopril 10 mg tablet 10 mg PO DAILY #90 tabs 04/28/21 Unknown Rx amlodipine 5 mg tablet 5 mg PO QDAY 04/15/25 Unknown History baclofen 5 mg tablet 5 mg PO BID 04/15/25 Unknown History cholecalciferol (vitamin D3) 50 50 mcg PO QDAY 04/15/25 Unknown History mcg (2,000 unit) capsule clonazepam 1 mg tablet 2 mg PO QHS 04/15/25 Unknown History desmopressin 0.1 mg tablet 0.1 mg PO BID 04/15/25 Unknown History divalproex 500 mg tablet,delayed 500 mg PO BID 04/15/25 Unknown History release gabapentin 300 mg capsule 300 mg PO BID PRN pain 04/15/25 Unknown History multivitamin 1 tab PO QDAY 04/15/25 Unknown History naproxen 500 mg tablet 500 mg PO DAILY 04/15/25 Unknown History citalopram 20 mg tablet 20 mg PO DAILY 04/30/25 Unknown History hydrocodone-acetaminophen 5-325mg 1 tab PO DAILY 04/30/25 Unknown History 5mg-325mg levothyroxine 88 mcg tablet 88 mcg PO DAILY 04/30/25 Unknown History Allergy/AdvReac Type Severity Reaction Status Date / Time No Known Allergies Allergy Verified 04/30/25 15:16 Family History Father Heart disease Mother Diabetes Brother Diabetes Surgical History (Updated 04/30/25 @ 15:40 by Lizette Schneider) Hx of colonoscopy History of cranial surgery History of knee replacement History of shoulder surgery History of orthopedic surgery History of back surgery history of skin graph Social History Smoking Status: Never smoker alcohol intake: current alcohol intake frequency: holidays/special occasions only substance use type: marijuana caffeine: No what type of physical activity do you participate in: bicycling frequency: 5-6 times per week Audit: Pertinent Findings Pertinent Findings EKG Perinent findings: 03/2025: NSR Echo (EF%) pertinent findings: 01/2020: EF 65%, mild LVH, mild MV, TV, and AV insufficiency. Recommendation Anesthesia Recommendation Anesthesia recommendation: OPTIMIZED for anesthesia
[2025-05-14] VITALS (15 sets, daily range): BP systolic 144–183; BP diastolic 67–112; PULSE 57–117; RESP 16–20; TEMP 36.1–36.6; O2SAT 88–98; BMI 33.2
[2025-05-14] MEDS: Lactated Ringers 1,000 ML 15 ML IV (12:36)
--- NOTE | 2025-05-14 12:58 | PCM.PRE.AN2 ---
ASA Classification* ASA Classification ASA Classification: 3 Assessment & Plan Anesthesia* Anesthesia Assessment Anesthesia Assessment: Discussed sedation and/or anesthesia options, risks, benefits, and alternatives with patient/parents/legal guardian/POA. Questions invited. The patient/parents/legal guardian/POA seems to understand and agrees to proceed with anesthesia plan. Reviewed the physical assessment, medical history, allergy history and patient home medications list prior to surgery/procedure/anesthetic and documented any changes. Performed airway and anesthesia risk assessments. Anesthesia Type Anesthesia Type: General History Source History Obtained from:: Patient and Chart Anesthesia Focused Assessment* Temperature: 97.2 F Pulse Rate: 57 Blood Pressure: 144/67 Respiratory Rate: 16 Pulse Ox: 97 Oxygen Delivery Method: Room Air Airway Assessment Mouth opens: >3 cm Mallampati Score: III Teeth Condition: Intact Neck Range of motion (ROM): Limited ROM (Severe Restriction secondary to primary diagnosis.) Labs Anesthesia Preop lab: CBC WBC, (4.4-11.0) 6.8 K/mm3 04/09/25, 09:50 RBC, (4.6-6.2) 4.97 M/mm3 04/09/25, 09:50 Hgb, (13.0-16.5) 15.1 g/dL 04/09/25, :50 Hct, (40-54) 45.8 % 04/09/25, :50 Plt Count, (150-450) 152 K/mm3 04/09/25, 09:50 CHEMISTRY Potassium, (3.3-5.1) 5.0 mmol/L 04/09/25, :50 Sodium, (133-145) 138 mmol/L 04/09/25, :50 Magnesium, (1.5-2.2) 2.4 mg/dL H 04/30/25, 11:47 BUN, (4-19) 27 mg/dL H 04/09/25, 09:50 Creatinine, (0.70-1.20) 0.90 mg/dL 04/09/25, 09:50 Glucose, (70-99) 90 mg/dL 04/09/25, 09:50 POC Glucose, (74-106) 90 mg/dL 04/09/25, 10:12 TSH, (0.300-4.200) 1.390 uIU/mL 04/09/25, 09:50 COAG PT, (11.7-14.9) 14.4 SECONDS 01/31/20, 21:15 Pre-Assessment Diagnosis/Proposed Procedure Planned Operative Procedure(s): Anterior Cervical Fusion C3-4 and C4-5 Anesthesia History 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 When Was Last Pacemaker Check QUESTION #4 FULL TEXT: You/Your Family Experience fever (hyperthermia) with Anesthesia Last Oral Intake Last Oral intake: Last Oral Intake NPO since 21:00 05/14/25 12:24 Meds taken in AM with sips of Yes 05/14/25 12:24 water? 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 Female No 04/30/25 15:40 HX of Motion Sickness No 04/30/25 15:40 HX of N/V After Surgery No 04/30/25 15:40 Non-Smoker Yes 04/30/25 15:40 Duration of Surgery greater Yes 04/30/25 15:40 than 60 minutes Number of Risk Factors 2 04/30/25 15:40 PONV Score Moderate Risk 04/30/25 15:40 Height & Weight Height & Weight: Anesthesia: Height & Weight Height 5 ft 9 in 05/14/25 12:24 Weight: 102 kg 05/14/25 12:24 Body Mass Index (BMI) 33.2 05/14/25 12:24 Respiratory Assessment Respiratory Assessment - 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 Has anyone observed you stop No 04/30/25 15:40 breathing during sleep? STOP Results Positive 04/30/25 15:40 QUESTION #5 FULL TEXT : Do you snore loudly (louder than talking or can be heard through closed doors)? 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 Specify any problems Hx of Preganancy in last 3 N/A 04/30/25 15:40 Months Nurse Filling Out Transfusion VCHRISTIN 04/30/25 15:40 & Questions: Date: 04/30/25 04/30/25 15:40 Time: 15:42 04/30/25 15:40 Patient unable to answer at this time (ie. confused, unrespo /Reproduction History /Reproductive History - laborer aquatic life: /Reproductive Hx- laborer aquatic life Hx Now No 04/30/25 15:40 Gestational Age (in weeks): EDC: Hx Hx Para Hx Section SAB No 04/30/25 15:40 Does the father of the baby or his family experience fever w Father of the baby Malignant Hypertension history comment Active Medications Active Medications: Current Medications Generic Name Dose Route Start Last Admin Trade Name Freq PRN Reason Stop Dose Admin Acetaminophen 1,000 mg 05/14/25 14:15 05/14/25 12:36 Acetaminophen 500 Mg Tablet PO 05/14/25 14:16 1,000 mg PREOP ONE Administration Dexamethasone Sodium Phosphate 8 mg 05/14/25 14:15 Dexamethasone 10 Mg/Ml Vial IV 05/14/25 14:16 INTRAOP ONE Dexamethasone Sodium Phosphate 4 mg 05/14/25 14:15 Dexamethasone 4 Mg/Ml Vial IV 05/14/25 14:16 POSTOP ONE Cefazolin Sodium 2 gm/ Sodium 110 mls @ 150 mls/hr 05/14/25 14:15 Chloride IV 05/14/25 14:58 INTRAOP ONE Tranexamic Acid 1,000 mg/ 110 mls @ 440 mls/hr 05/14/25 14:15 Sodium Chloride IV 05/14/25 14:29 INTRAOP ONE Tranexamic Acid 1,000 mg/ 110 mls @ 440 mls/hr 05/14/25 14:15 Sodium Chloride IV 05/14/25 14:29 INTRAOP ONE Lactated Ringer's 1,000 mls @ 15 mls/hr 05/14/25 12:00 05/14/25 12:36 IV 15 mls/hr .Q48H BONNIE Administration Insulin Human Lispro 1 - 6 unit 05/14/25 14:15 Insulin Lispro 100 Unit/Ml Insuln.Pen SC 05/14/25 18:00 Q4H PRN PRN BG>/= 180, SEE PROTOCOL Protocol PFSH Medical History Wears glasses Cancer History of steroid therapy Thyroid disease Non-smoker History of echocardiogram Cervical spinal stenosis Bulging of cervical intervertebral disc Spondylolisthesis Obesity (BMI 30-39.9) Psychogenic nonepileptic seizure Chronic diarrhea Malignant neoplasm of connective and soft tissue, unspecified Hepatic fibrosis Appetite loss Unintentional weight loss Sarcoma of right lower extremity Back pain Migraines Fatigue HTN (hypertension) Hypothyroidism Chronic pain Home Medications ?Medication ?Instructions ?Recorded ?Last Taken ?Type ibuprofen 600 mg tablet 600 mg PO TID PRN pain #30 tabs 05/07/19 01/31/20 Rx lisinopril 10 mg tablet 10 mg PO DAILY #90 tabs 04/28/21 Unknown Rx amlodipine 5 mg tablet 5 mg PO QDAY 04/15/25 05/14/25 09:00 History baclofen 5 mg tablet 5 mg PO BID 04/15/25 05/14/25 09:00 History cholecalciferol (vitamin D3) 50 50 mcg PO QDAY 04/15/25 Unknown History mcg (2,000 unit) capsule clonazepam 1 mg tablet 2 mg PO QHS 04/15/25 Unknown History desmopressin 0.1 mg tablet 0.1 mg PO BID 04/15/25 Unknown History divalproex 500 mg tablet,delayed 500 mg PO BID 04/15/25 05/14/25 09:00 History release gabapentin 300 mg capsule 300 mg PO BID PRN pain 04/15/25 05/14/25 09:00 History multivitamin 1 tab PO QDAY 04/15/25 Unknown History naproxen 500 mg tablet 500 mg PO DAILY 04/15/25 Unknown History citalopram 20 mg tablet 20 mg PO DAILY 04/30/25 Unknown History hydrocodone-acetaminophen 5-325mg 1 tab PO DAILY 04/30/25 Unknown History 5mg-325mg levothyroxine 88 mcg tablet 88 mcg PO DAILY 04/30/25 05/14/25 09:00 History Allergy/AdvReac Type Severity Reaction Status Date / Time No Known Allergies Allergy Verified 05/14/25 12:20 Family History Father Heart disease Mother Diabetes Brother Diabetes Surgical History Hx of colonoscopy History of cranial surgery History of knee replacement History of shoulder surgery History of orthopedic surgery History of back surgery history of skin graph Social History Smoking Status: Never smoker alcohol intake: current alcohol intake frequency: holidays/special occasions only substance use type: marijuana caffeine: No what type of physical activity do you participate in: bicycling frequency: 5-6 times per week Review of Systems (Anesthesia) ROS Narrative System reviewed and no additional complaints, except as documented.
--- NOTE | 2025-05-14 13:53 | HP.PCM_ITS ---
History and Physical Date of Admission: 05/14/25 MR#: [id number] Acct: [id number] Name: SUNITA TOTH Rep #: [id number] : 1950 Provider: Dr. Cornelius Woodall MD Age/Sex: 74/M Location: [facility] [place].DANYA Status: Signed Intake Vital Signs 04/15/2509:11 Height 5 ft 9 in Weight: 230 lb 2 oz BMI 34.0 Intake Visit Reasons: cervical spine Chief Complaint: Cervical Spine Pain Allergies No Known Allergies Allergy (Verified 05/06/25 11:30) Medications ?Medication ?Instructions ?Recorded ?Confirmed ?Type ibuprofen 600 mg tablet 600 mg PO TID PRN pain #30 tabs 05/07/19 05/06/25 Rx lisinopril 10 mg tablet 10 mg PO DAILY #90 tabs 04/28/21 5 Rx amlodipine 5 mg tablet 5 mg PO QDAY 04/15/25 05/06/25 History baclofen 5 mg tablet 5 mg PO BID 04/15/25 05/06/25 History cholecalciferol (vitamin D3) 50 50 mcg PO QDAY 04/15/25 05/06/25 History mcg (2,000 unit) capsule clonazepam 1 mg tablet 2 mg PO QHS 04/15/25 05/06/25 History desmopressin 0.1 mg tablet 0.1 mg PO BID 04/15/25 05/06/25 History divalproex 500 mg tablet,delayed 500 mg PO BID 04/15/25 05/06/25 History release gabapentin 300 mg capsule 300 mg PO BID PRN pain 04/15/25 05/06/25 History multivitamin 1 tab PO QDAY 04/15/25 05/06/25 History naproxen 500 mg tablet 500 mg PO DAILY 04/15/25 05/06/25 Histor y citalopram 20 mg tablet 20 mg PO DAILY 04/30/25 05/06/25 History hydrocodone-acetaminophen 5-325mg 1 tab PO DAILY 04/30/25 05/06/25 History 5mg-325mg levothyroxine 88 mcg tablet 88 mcg PO DAILY 04/30/25 05/06/25 Histor y Have you fallen in the past year?: No [facility] Medical History Wears glasses Cancer History of steroid therapy Thyroid disease Non-smoker History of echocardiogram Cervical spinal stenosis Bulging of cervical intervertebral disc Spondylolisthesis Obesity (BMI 30-39.9) Psychogenic nonepileptic seizure Chronic diarrhea Malignant neoplasm of connective and soft tissue, unspecified Hepatic fibrosis Appetite loss Unintentional weight loss Sarcoma of right lower extremity Back pain Migraines Fatigue HTN (hypertension) Hypothyroidism Chronic pain Surgical History Hx of colonoscopy History of cranial surgery History of knee replacement History of shoulder surgery History of orthopedic surgery History of back surgery history of skin graph Family History Father Heart disease Mother Diabetes Brother Diabetes Social History Smoking Status: Never smoker alcohol intake: current alcohol intake frequency: holidays/special occasions only substance use type: marijuana caffeine: No what type of physical activity do you participate in: bicycling frequency: 5-6 times per week HPI cervical spine Details: This documentation accurately reflects the service provided and the decisions made by me, Dr. Cornelius Woodall MD 05/06/25 1123. Part of today?s visit was docum ented by Gabbie DELGADO, acting as scribe. SUNITA TOTH is a 74 year old M here today for preop, cervical spine, C3-5 ACDF dos 05/14/25. The patient is a 74-year-old male presenting with balance issues and tremors. The balance issues have been progressively worsening, with the patient experiencing occasional falls, one of which occurred when he tripped over a cord. He prefers using a cane over a walker, although he has a walker available from a previous time. The patient also reports worsening tremors, which have not been evaluated by a neurologist yet. There is a family history of Parkinson's disease, as both his grandmother and mother had the condition. The patient has a history of claustrophobia, which is a concern regarding the use of a neck collar post-surgery. He previously experienced significant discomfort with nasal tubes during a past brain surgery. The cervical spine instability involves C3 to C5, with one segment being unstable and pressing on the spinal cord, while another is collapsing and shifted forward. The planned surgical approach is anterior, with a 1-inch incision to the left of the Felix's apple. - Neurological: Reports balance issues and worsening tremors. Denies having had a neurological evaluation for tremors. - Musculoskeletal: Reports occasional falls due to balance issues. - Psychological: Reports claustrophobia, particularly concerning the use of a neck collar. Attestation: Documentation on this patient encounter was supported using ambient scribe technology/ voice AI technology. The patient consented to recording for the purpose of documenting the encounter. Provider reviewed content of the generated note prior to signature. 04/15/25: SUNITA TOTH is a 74 year old M here today for cervical spine pain. Patient rates his pain a 3/10 today and states the pain has been bothering him for about 11 weeks. 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 When he initially noticed the cervical spine pain he started taking tylenol and ibuprofen for about a week and it did give him relief but the second and third week he was taking it did not help him at all. He noticed he was getting irritated with his clients due to headaches and daily pain so he took a break from work. He saw Dr. Sandoval and he gave him an injection into his hip for the n jesse pain and it did help with the pain but did not give him any relief with his headaches. Dr. Sandoval then referred him to Dr. Tilley for pain management and he was not able to get an injection approved with insurance so he tried a prescription of baclofen and gabapentin. These helped with the headaches but not the pain in the neck. He was referred to occupational therapy for an evaluation and they didn't want to do anything with him to create any further problems. Most of his pain is on the left side of the neck and he does get tingling into the shoulders. He states he has tenderness on the left side of the neck into the shoulder and it always aches. He describes his headaches on the left side of the neck and the back of the neck. Dr. Sandoval ordered an MRI and EMG study to be done. 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 He reports numbness and tingling into his bilateral hands, all his fingers on both hands are numb except the ring finger. He denies any physical therapy because they do not want to cause any further damage, injections into the cervical spine or any prior surgery. He states his handwriting has worse over the last three months. He denies heart or lung problems. He denies diabetes. He denies a history of strokes. He reports weakness in his right hand, he states it is weaker than the right. He denies dropping items. He has visible bilateral hand tremors. He denies shortness of breath. He has not seen a neurologist. 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 He does see Dr. Tilley in pain management. Ortho Exam General General: Yes no acute distress Neurologic: Yes alert and Yes oriented x3 Psychologic: Yes reasonable and appropriate Exam Narrative - Neurological: Strength testing of upper extremities shows normal dry box tender strength, finger extension, and elbow flexion and extension. Balance assessed with standing and single-leg stance. - Musculoskeletal: Tenderness noted in cervical region paraspinal towards the left. Tremors noted in bilateral hands. Upper extremity shows 5 x 5 strength. Moses's is negative. Romberg's is positive. Tandem gait shows severe imbalance. Coding Level of Care Code Off vis,est,level 4 Diagnoses Obesity (BMI 30-39.9) E66.9 Spondylolisthesis of cervical region M43.12 Spinal region: cervical Cervical myelopathy with cervical radiculopathy G95.9; M54.12 Time Spent (min) 35 Assessment and Plan Assessment and Plan (1) Obesity (BMI 30-39.9): Status: Acute (2) Spondylolisthesis: Status: Acute Qualifiers: Spinal region: cervical Qualified Code(s): M43.12 - Spondylolisthesis, cervical region (3) Cervical myelopathy with cervical radiculopathy: Status: Acute Plan - Imaging: X-rays show cervical spondylolisthesis at C3-4 with instability on flexion-extension views. MRI confirms spinal cord compression at C3-5 without cord signal changes. 1. Balance issues - The patient reports worsening balance issues with occasional falls. - The plan includes post-operative physical therapy to improve stability and balance, especially given the cervical spine surgery. 2. Tremors - The patient has worsening tremors with a family history of Parkinson's disease. - A referral to a neurologist is recommended for further evaluation and management. 3. Claustrophobia - The patient is concerned about claustrophobia related to the neck collar post- surgery. - Strategies to manage this include deep breathing exercises and temporary removal of the collar if necessary. 4. Cervical spine instability - The patient is scheduled for anterior cervical spine surgery to address instability at C3 to C5. - Post-operative care includes wearing a neck collar, physical therapy, and follow-up appointments to monitor healing. - Use a cane or walker as needed for balance support. - Follow up with a neurologist for tremor evaluation. - Practice deep breathing exercises to manage claustrophobia with the neck collar. - Attend all post-operative physical therapy sessions to improve balance and stability. - Wear the neck collar as instructed post-surgery to aid in healing. Again explained imaging findings in detail. Patient developed significant cord compression and myelopathy which is a progressive pattern. He also has radiculopathy to his left C3-4 dermatome to left shoulder. At this time I recommend surgery due to the worsening pattern of myelopathy. He is experiencing balance and dexterity issues due to pressure on the spinal cord. I explained the decompression and fusion surgery in the form of C3-5 ACDF Discussed this procedure in detail and explained the risks, benefits and alternatives. The risks of surgery include but are not limited to infection, bleeding, injury to nerves and vessels, hematoma formation, dysphagia, dysphonia, recurrent laryngeal nerve injury, Alexandra syndrome, DVT, pulmonary embolism, pneumonia, atelectasis, cardiopulmonary event, pseudoarthrosis, hardware failure, adjacent segment degeneration, need for further surgery, nerve root injury, spinal cord injury. Answered all questions to the patient?s satisfaction. Patient understands and agrees to proceed with surgery. Consent was signed.Follow up two weeks post operatively or sooner if pain, swelling, numbness or associated symptoms, or concerns develop. All questions answered. Patient in agreement of plan.
[2025-05-14] MEDS: Lactated Ringers 1,000 ML 1000 ML IV (14:55)
[2025-05-14] MEDS: Midazolam 2 MG/2 ML Syringe IV (14:57)
[2025-05-14] MEDS: Cefazolin 1 GM/5 ML Vial 2 GM IV (15:00)
[2025-05-14] MEDS: Lidocaine 1% (5 ml sdv) 5 ML Vial 10 ML IV (15:01)
--- NOTE | 2025-05-14 15:12 | RAD_ITS ---
PROCEDURE: CERV SPINE 2 OR 3 VIEWS 05/14/2025 REASON FOR EXAM: ANTERIOR CERVICAL FUSION C3-4 C4-5 TECHNIQUE: Procedure Code: RADSPCL Modality: DX Procedure: CERV SPINE 2 OR 3 VIEWS 9 intraoperative films, 11.2 seconds of fluoroscopy, radiation dose of 2.76 mGy COMPARISON: 04/15/2025 FINDINGS: 9 limited intraoperative studies performed as the patient underwent anterior cervical fusion from C3-C5. No intraoperative complications are noted. RAD/Cerv Spine 2 or 3 Views IMPRESSION: No intraoperative complications noted during anterior cervical fusion from C3-C 5 Disclaimer: Reading Location: [id number]
[2025-05-14] MEDS: fentaNYL 100 MCG/2 ML Ampul IV (15:18)
[2025-05-14] MEDS: REMIFENTANIL HCL 1 MG VIAL 3 MG IV (16:34)
[2025-05-14] MEDS: TRANEXAMIC ACID 1,000 MG/10 ML ML 2000 MG IV (17:00)
--- NOTE | 2025-05-14 17:33 | OP.PCM_ITS ---
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, radiculomyelopathy Post-Operative Diagnosis: Same Surgery/Procedure Performed: C3-5 ACDF oil house attendant: Yes Guest Services Associate: Donya Quiroga Tasks completed by licensed occupational therapy assistant: Closing, Removing tissue, Implanting device, Hemostasis: Electrocautery and Retracting Type of Anesthesia: General RN Documented Start/Stop Times: Operation Date: 05/14/25 14:15 Case Time Into Pre-Op 05/14/25 11:55 Out of Pre-Op 05/14/25 14:21 Anesthesia Start 05/14/25 14:55 Into Room 05/14/25 14:55 Procedure Start 05/14/25 15:26 Procedure End 05/14/25 17:22 Anesthesia End 05/14/25 17:29 Out of Room 05/14/25 17:29 Procedure Start Time: 15:26 Procedure Stop Time: 17:22 Select all DRAINS/GRAFTS/IMPLANTS that apply: Drains Drain details: Shabnam , Graft Graft details: Structural allograft corticocancellous strut and Implanted device Implanted device details: Medtronic [place] Elite plate instrumentation Estimated Blood Loss: 30 cc Specimen collected: No Description of surgery: Preoperative diagnosis: C3-4 spondylolisthesis, 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 Anesthesia: Gen. endotracheal Estimated blood loss: 30 mL Complications: None Instrumentation used: Medtronic [place] Elite plate, LASR corticocancellous block Indications: The patient is a pleasant 74-year-old gentleman who presented with neck pain with left worse than right upper extremity radiation, progressive difficulty with dexterity and balance. Imaging showed C3-4 unstable spondylolisthesis, C3-5 disc degeneration with stenosis with cord compression. In order to halt the progression of myelopathy, the patient requested surgical treatment. All risks and benefits of the procedure were explained to the patient. The risks include but are not limited to infection, bleeding, injury to nerves and vessels, vertebral artery injury, spinal cord injury, paralysis, vocal cord paralysis, injury to esophagus, pseudoarthrosis, need for further procedures, adjacent segment degeneration. Procedure: The patient was identified in the preoperative suite using unique patient identifiers. Skin was marked consent was taken and all questions were answered. The patient was then brought back to the operative room and a timeout was performed. General endotracheal anesthesia was given. Intraoperative neuro monitoring leads were applied. The patient was carefully positioned supine on a regular OR table. A lateral view with a C-arm was done to identify the level and to define the incision. The anterior neck was then prepped and draped in the usual fashion. A final timeout was then performed. A transverse skin incision was taken to the left of midline. Subcutaneous tissue was then divided with Bovie. Platysma was identified and cut along the incision with scissors. The fascial interval between the sternocleidomastoid and the larynx was developed. Omohyoid was identified and retracted. The esophagus with the larynx was retracted medially to reach the prevertebral fascia. Marker x-ray was performed with bent spinal needle and disc space and levels were confirmed. Longus coli muscle was elevated on both sides at and above and below C3-5 discs. Self-retaining retractors were then placed. A long handle knife was then used to perform annulotomy at C3-4. Disc fragments were removed with the pituitary. [place] pins were placed in C3 and C4 for disc distraction. Curettes and bur was utilized to remove cartilage from the endplates. Discectomy was performed laterally up to the uncovertebral joints. Posterior osteophytes were thinned down with the bur and adequate decompression in the central and foraminal areas were performed and PLL was thinned out. Once the disc space was prepared, trials of various sizes were utilized. Thorough irrigation was given. 7 mm LASR cortical cancellous allograft bone large footprint was then fashioned in such a way that concavities were burred out inferiorly and superiorly and half cc of DBX (demineralized bone matrix) was squeezed into the cancellous portion. The graft was then inserted into the C3-4 disc space. The retractors were then repositioned and the procedure was repeated for C4-5 disc with complete discectomy. Graft size was 6 mm at with large footprint at C4-5. The grafts were found to be in good apposition with good pullout strength. A 42 mm Medtronic [place] Elite plate was then fixed to C3-5 with 16 mm screws. A lateral x-ray was then taken to check the length of the screws. Both AP and lateral x-rays showed good positioning of plate and screws. The locking mechanism over the screw heads was then turned. Thorough irrigation was again given. Hemostasis was achieved. A Shabnam drain was then inserted. Closure was done with 3-0 Vicryl for the platysma and subcutaneous tissue layers and 4-0 Monocryl for the skin. Closure was done around the drain. Steri-Strips were applied and dressing was done with 4 x 4 gauze and Tegaderm. A cervical collar was then applied. The patient was then woken up from anesthesia extubated and taken to PACU in stable condition. From here, the patient will be transitioned to the floor. Intraoperative neuro monitoring was performed throughout this procedure. Motor evoked potentials were run periodically. All potentials remained at baseline throughout the procedure. I was present for the entire surgery and performed the surgery myself. [employer] Donya Quiroga PA-C. My physician family law legal assistant was a vital part of this case. They were important in appropriate retraction during the case, and protection of soft tissues during the procedure. Their intimate knowledge of the case and my steps aided in safe and expedient completion of the procedure as well as appropriate position of the patient during the surgery. They were also vital in assisting with closure under my direct supervision. Surgical Findings: See operative note Complications Complications: No
--- NOTE | 2025-05-14 17:40 | PCM.POST.ANE ---
Anesthesia: Postop Eval I Current Vital Signs Temperature: 97.0 F Pulse Rate: 89 Blood Pressure: 168/83 Respiratory Rate: 20 Pulse Ox: 94 Oxygen Delivery Method: Nasal Cannula Oxygen Flow Rate (L/min): 2 Assessment Airway patent: Yes Spontaneous unlabored respirations: Yes Mental status: Awake and Calm nausea: No Vomiting: No Anesthesia Complication: No Fluid Hydration Crystalloid volume administer (ml): 1,000 Total IV fluid infused: 1,000 Progress Note Anesthesia document: Postop Eval 1 completed: Yes
--- NOTE | 2025-05-14 19:37 | PCM.CONS.GEN ---
Assessment & Plan Assessment/Plan (1) Cervical myelopathy with cervical radiculopathy: PLAN: Plan Patient is a 74-year-old male who presented to [facility] on 05/14/2025 for planned cervical spine fusion procedure. Medicine consulted postoperatively for medical management. 1. Cervical spine degeneration with stenosis and radiculomyelopathy ? Orthopedic surgery primary. S/p C3-5 anterior cervical disc fusion procedure with Dr. Woodall on 05/14. Tolerated procedure well, no intraoperative complications noted. Postoperative pain control per orthopedics with scheduled Mobic and as needed IV morphine, hydrocodone?acetaminophen and gabapentin. Will receive 3 doses of IV Toradol as well. On IV Decadron 4 mg every 8 hours for postoperative swelling. Notably, recommend that patient resume home baclofen as soon as possible to minimize withdrawal symptoms. Will defer to orthopedics for DVT prophylaxis. Follow-up a.m. labs. PT/OT/case management consulted. Further management per orthopedics. 2. Hypertension ? Mildly hypertensive to the 140s systolic postoperatively. Continue home amlodipine and lisinopril. 3. Anxiety/depression ? Stable. Continue home citalopram, divalproex and clonazepam at night. 4. 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 Stable. Continue home desmopressin and Synthroid. DVT prophylaxis: Defer to orthopedics Total clinical time spent by myself addressing the patient's medical issues, reviewing all the data, and collaborating with patient's care team: 37 minutes. HPI Consult Data Date of Consult: 05/14/25 HPI Narrative Reason for Consultation: Postoperative medical management HPI Narrative: SUNITA TOTH, is a 74 M who presented to [facility] on 05/14/2025 for planned orthopedic surgery. Medicine consulted postoperatively for medical management. Patient with history of cervical spine degeneration with radiculomyelopathy. S/p C3-5 anterior cervical disc fusion procedure with Dr. Woodall this afternoon. Tolerated procedure well, no intraoperative complications noted. I saw the patient at bedside later this evening. Patient was sitting up comfortably in bed with neck brace in place. He was answering questions appropriately for me and in no acute distress. He was reporting soreness and discomfort localized in the neck with no radiation of pain at this time. Denied any other acute concerns currently. [facility] Medical History Wears glasses Cancer History of steroid therapy Thyroid disease Non-smoker History of echocardiogram Cervical spinal stenosis Bulging of cervical intervertebral disc Spondylolisthesis Obesity (BMI 30-39.9) Psychogenic nonepileptic seizure Chronic diarrhea Malignant neoplasm of connective and soft tissue, unspecified Hepatic fibrosis Appetite loss Unintentional weight loss Sarcoma of right lower extremity Back pain Migraines Fatigue HTN (hypertension) Hypothyroidism Chronic pain Home Medications ?Medication ?Instructions ?Recorded ?Last Taken ?Type ibuprofen 600 mg tablet 600 mg PO TID PRN pain #30 tabs 05/07/19 01/31/20 Rx lisinopril 10 mg tablet 10 mg PO DAILY #90 tabs 04/28/21 Unknown Rx amlodipine 5 mg tablet 5 mg PO QDAY 04/15/25 05/14/25 09:00 History baclofen 5 mg tablet 5 mg PO BID 04/15/25 05/14/25 09:00 History cholecalciferol (vitamin D3) 50 50 mcg PO QDAY 04/15/25 Unknown History mcg (2,000 unit) capsule clonazepam 1 mg tablet 2 mg PO QHS 04/15/25 Unknown History desmopressin 0.1 mg tablet 0.1 mg PO BID 04/15/25 Unknown History divalproex 500 mg tablet,delayed 500 mg PO BID 04/15/25 05/14/25 09:00 History release gabapentin 300 mg capsule 300 mg PO BID PRN pain 04/15/25 05/14/25 09:00 History multivitamin 1 tab PO QDAY 04/15/25 Unknown History naproxen 500 mg tablet 500 mg PO DAILY 04/15/25 Unknown History citalopram 20 mg tablet 20 mg PO DAILY 04/30/25 Unknown History hydrocodone-acetaminophen 5-325mg 1 tab PO DAILY 04/30/25 Unknown History 5mg-325mg levothyroxine 88 mcg tablet 88 mcg PO DAILY 04/30/25 05/14/25 09:00 History Allergy/AdvReac Type Severity Reaction Status Date / Time No Known Allergies Allergy Verified 05/14/25 12:20 Family History Father Heart disease Mother Diabetes Brother Diabetes Surgical History Hx of colonoscopy History of cranial surgery History of knee replacement History of shoulder surgery History of orthopedic surgery History of back surgery history of skin graph Social History Smoking Status: Never smoker alcohol intake: current alcohol intake frequency: holidays/special occasions only substance use type: marijuana caffeine: No what type of physical activity do you participate in: bicycling frequency: 5-6 times per week ROS Constitutional Constitutional: Denies chills, fatigue, fever(s) or weakness Eyes Eyes: Denies change in vision Cardiovascular Cardiovascular: Denies chest pain Respiratory/Chest Respiratory/Chest: Denies shortness of breath at rest Gastrointestinal Gastrointestinal: Denies abdominal pain Musculoskeletal Musculoskeletal: Reports neck pain; Denies myalgias Neurologic Neurologic: Denies dizziness, focal weakness, headache(s), numbness or tingling Physical Exam Const alert, oriented x3 and no apparent distress Constitutional Narrative: Pleasant elderly male, class I obesity, neck brace in place, mildly fatigued appearing, otherwise sitting up fairly comfortably in bed, answering questions appropriately, in no acute distress. General Appearance: cooperative and comfortable HEENT normocephalic, head/scalp atraumatic, hearing grossly normal bilaterally, nasal mucous membranes and turbinates normal and moist oral mucous membranes Eyes PERRL, EOMs intact bilaterally and conjunctivae normal Neck Neck Narrative: Neck brace in place. Chest inspection of chest normal Resp normal respiratory effort, normal air movement, no use of accessory muscles and clear to auscultation bilaterally Resp Narrative: Breathe comfortably on 4 L nasal cannula at rest with oxygen saturations in the high 90s. Good breath sounds bilaterally throughout with no wheezing or crackles noted. Cardio regular rate, regular rhythm, no murmurs and peripheral pulses 2+ throughout GI normal to inspection, nondistended, normoactive bowel sounds, soft to palpation, non-tender and non-distended Back/Spine normal ROM Extremity normal to inspection, full ROM and no pedal edema Skin no rashes or lesions noted Neuro moves all extremities, no focal motor deficits and no sensory deficits noted Psych mental status grossly normal Lab / Micro Data Labs: Laboratory Results - last 24 hr 05/14/25 12:25: POC Glucose 91 Charges/Coding Visit Charges Inpatient E&M: 32147 Subs Hosp L2
[2025-05-14] MEDS: Divalproex (ER) 500 MG Tablet PO (21:16)
[2025-05-14] MEDS: Senna/Docusate Sodium 1 Tablet 2 TABLET PO (21:16)
[2025-05-14] MEDS: HYDROcodone Bitartrate/Apap 5/325 Tablet PO (21:17)
[2025-05-14] MEDS: 0.9% Normal Saline (250mL Bag) 250 ML 15 ML IV (21:26)
[2025-05-14] MEDS: Cefazolin 2 GM in 0.9% Normal Saline (100mL Bag) 100 ML IV (23:23)
[2025-05-15 00:12] VITALS: BP 175/97; PULSE 112
--- NOTE | 2025-05-15 00:22 | PCM.HOSP.N ---
Hospitalist Note [id number] [id number]-Called to floor for rapid response team, status post first time postsurgical ambulation for patient, nursing states patient returned to bed and proceeded to blank out and was nonresponsive to name called or painful stimulus. Upon my arrival patient appeared to be having an absence seizure, without presence of vertical or horizontal nystagmus. Positive corneal reflex with touching eyelashes. Respirs shallow but evidence of positive air exchange, pulse ox did drop to 91% while he was on 2 L nasal cannula. BP 198/118, HR 140, T99.8 temporal, RR 20, 91% on 2 L NC. After 3-1/2 minutes, patient sat up independently to high Fowlers position on own, immediately stating that he had a medical history of PNES, or psychogenic nonepileptic seizures. He stated, the sooner I get Ativan the better. He proceeded to have several more absence seizures with staff at bedside, lasting only seconds. Raised arm did not drop on face, corneal reflex is positive with finger flick toward eye. Lorazepam 2 mg IV x 1 administered at 2353. Per review of chart, anesthesia documented prior to surgical procedure this morning that his last PNES episode was on 04/09/2025. Prior to that, it had been over a year since his last episode. Patient states that he does take Ativan at home, however this is not on his home medication reconciliation list. I asked how the Ativan is administered when he is having an episode, he states I do not know, my just gives it to me. I attempted to clarify whether she administers the medication via oral or rectal route, he shivered in the bed and stated God I hope through my mouth. And it brings me right out of them. Dr. Merida at bedside, PRN hydralazine 10 mg IV Q6h SBP greater than 160 ordered.
--- NOTE | 2025-05-15 01:14 | NURSING ---
after going for a walk, assisted patient to bed. RN went out to grab supplies but when she came by in, patient was staring blankly in front of him and would not respond to verbal or physical stimulation DIRECTOR POWER called and after a few minutes, patient jerked and sat up in bed and said he has a syndrome and needs to take the a drug. Patient then went back into staring blankly and not responding for a few minutes. Very quickly after Ativan 2mg IV was given, patient woke up and came too.
[2025-05-15 04:15] VITALS: BP 163/91; PULSE 108; RESP 16; TEMP 36.5; O2SAT 94
[2025-05-15] MEDS: HYDROcodone Bitartrate/Apap 5/325 Tablet PO ×2 (04:25→10:58)
--- NOTE | 2025-05-15 05:45 | RAD_ITS ---
PROCEDURE: CERV SPINE 2 OR 3 VIEWS N/A REASON FOR EXAM: S/P CERVICAL FUSION TECHNIQUE: Procedure Code: RADSPCL Modality: DX Procedure: CERV SPINE 2 OR 3 VIEWS COMPARISON: April 15, 2025 FINDINGS: There is loss of the lordosis. There is fusion hardware from C3-5 which appears intact and aligned. There is degenerative disc disease from C5-7. Soft tissues show a drainage tube extending to the site of a safety safety pin on the left. Mineralization is normal. RAD/Cerv Spine 2 or 3 Views IMPRESSION: Hardware in position. Reading Location: [id number]
[2025-05-15] MEDS: Cefazolin 2 GM in 0.9% Normal Saline (100mL Bag) 100 ML IV (05:51)
[2025-05-15 07:09] LABS: Hematocrit 44.4 % (40-54); Hemoglobin 15.0 g/dL (13.0-16.5); Immature Granulocytes Count 0.080 X10^3/uL (0.0-0.0); Mean Corp Hgb Conc 33.8 g/dL (32-36); Mean Corpuscular Volume 90.6 fL (80-94); Mean Platelet Vol. 10.3 fl (6.2-12.0); NRBC Flagged by Analyzer 0 % (0-5); Platelet Count 179 K/mm3 (150-450); RBC Distribution Width CV 13.6 % (11.6-14.6); RBC Distribution Width SD 45.4 fl (35.1-43.9); Red Blood Count 4.90 M/mm3 (4.6-6.2); White Blood Count 10.7 K/mm3 (4.4-11.0)
[2025-05-15 07:37] LABS: Anion Gap 11 (5-15); BUN 19 mg/dL (4-19); BUN/Creat Ratio 18.6 RATIO (10-20); Calcium,Total 8.6 mg/dL (7.6-11.0); Carbon Dioxide 23.8 mmol/L (21.0-32.0); Chloride 102 mmol/L (98-108); Estimated Creatinine Clearance 76.29 ml/min (50-250); Glucose 129 mg/dL (70-99); Potassium 4.5 mmol/L (3.3-5.1)
[2025-05-15] MEDS: DESMOPRESSIN ACETATE 0.1 MG TABLET PO (08:37)
[2025-05-15] MEDS: Senna/Docusate Sodium 1 Tablet 2 TABLET PO (08:38)
[2025-05-15] MEDS: Divalproex (ER) 500 MG Tablet PO (08:38)
[2025-05-15 08:43] VITALS: PULSE 83
[2025-05-15] MEDS: 0.9% Saline Lock 10 ML Syringe IV ×2 (08:43→14:02)
[2025-05-15] MEDS: Ensure Surgery 237 ML LIQUID PO ×2 (08:43→10:59)
[2025-05-15 09:34] VITALS: BP 170/99; PULSE 83; RESP 16; TEMP 36.3; O2SAT 95
--- NOTE | 2025-05-15 10:46 | POSTOPAN2_ITS ---
Anesthesia Postop Eval I Sum Postop Eval Completion status Anesthesia document: Postop Eval 1 completed: Yes Anesthesia Postop Eval I Summary Anesthesia Postop Eval I Summary: Anesthesia Postop Eval I: Assessment Summary Airway patent Yes 05/14/25 17:41 [email or web address] Spontaneous unlabored Yes 05/14/25 17:41 [email or web address] respirations Mental status Awake,Calm 05/14/25 17:41 [email or web address] nausea No 05/14/25 17:41 [email or web address] Vomiting No 05/14/25 17:41 [email or web address] Anesthesia Postop Eval I: Fluid Summary Crystalloid volume administer 1,000 05/14/25 17:41 [email or web address] (ml) Colloids volume administered ( ml) Blood Product volume administered (ml) Total IV fluid infused 1,000 05/14/25 17:41 [email or web address] Anesthesia Postop Eval I: Summary Notes Anesthesia Complication No 05/14/25 17:41 [email or web address] Anesthesia Complication Comment: Post-operative progress note Anesthesia: Postop Eval II Evaluation Mental status: Awake Pain Level: 0 nausea: No Vomiting: No
--- NOTE | 2025-05-15 10:46 | PCM.POSTANE2 ---
Anesthesia Postop Eval I Sum Postop Eval Completion status Anesthesia document: Postop Eval 1 completed: Yes Anesthesia Postop Eval I Summary Anesthesia Postop Eval I Summary: Anesthesia Postop Eval I: Assessment Summary Airway patent Yes 05/14/25 17:41 [email or web address] Spontaneous unlabored Yes 05/14/25 17:41 [email or web address] respirations Mental status Awake,Calm 05/14/25 17:41 [email or web address] nausea No 05/14/25 17:41 [email or web address] Vomiting No 05/14/25 17:41 [email or web address] Anesthesia Postop Eval I: Fluid Summary Crystalloid volume administer 1,000 05/14/25 17:41 [email or web address] (ml) Colloids volume administered ( ml) Blood Product volume administered (ml) Total IV fluid infused 1,000 05/14/25 17:41 [email or web address] Anesthesia Postop Eval I: Summary Notes Anesthesia Complication No 05/14/25 17:41 [email or web address] Anesthesia Complication Comment: Post-operative progress note Anesthesia: Postop Eval II Evaluation Mental status: Awake Pain Level: 0 nausea: No Vomiting: No
[2025-05-15 11:36] VITALS: BP 149/81; PULSE 86; RESP 16; TEMP 36.8; O2SAT 93
--- NOTE | 2025-05-15 11:54 | CASEMGMT ---
Dx:anterior cervical fusion LACE:1 6-Clicks:20 Medical record reviewed and patient evaluated for identification of discharge planning needs. Based on this review, at this time criteria are not present to indicate a need for discharge planning. Will remain available to assist with discharge planning needs as identified or requested. No PT or OT recommended. Pt has DME. Noted SHIPYARD LABORER yesterday.
--- NOTE | 2025-05-15 13:33 | DCINST_ITS ---
Discharge Instructions DC O2, CPAP, BIPAP needs Home O2 Discharge instructions: No Follow Up Care Test Results: Test results from this visit will be discussed in further detail at your follow- up appointment, if applicable. Discharge Plan Admission Admit Date/Time: 05/14/25 17:29 Attending Provider: Cornelius Woodall Primary Care Provider: Silverio Sandoval Chi Consulting Providers: Jennifer Obrien Instructions Patient Instructions: Cervical Fusion Dc Additional Instructions / Restrictions: Keep Tegaderm and gauze clean and dry. After 5 days remove the Tegaderm and ga uze and cover incision with a Band-Aid. Replace Band-Aid daily thereafter. Wear cervical collar full-time for the first 2 weeks. Eat soft solid foods as needed for dysphagia. Sleep in a recliner to help with swelling. No bending, lifting, twisting. Follow-up in clinic in 2 weeks. Discharge Orders/Prescriptions Prescriptions: New hydrocodone-acetaminophen 5-325 mg Tablet 1 tab PO Q6H PRN (Reason: pain) 7 Days Qty: 28 0RF meloxicam 15 mg Tablet 15 mg PO DAILY Qty: 30 0RF Rx Instructions: take once a day methocarbamol 500 mg Tablet 750 mg PO TID PRN (Reason: pain/spasms) Qty: 30 0RF sennosides-docusate sodium [Stimulant Laxative Plus] 8.6-50 mg Tablet 2 tab PO BID PRN (Reason: constipation) Qty: 14 0RF Continued multivitamin Tablet 1 tab PO QDAY clonazepam 1 mg tablet 2 mg PO QHS amlodipine 5 mg tablet 5 mg PO QDAY divalproex 500 mg tablet,delayed release (DR/EC) 500 mg PO BID gabapentin 300 mg capsule 300 mg PO BID PRN (Reason: pain) desmopressin 0.1 mg tablet 0.1 mg PO BID Patient Comments: 0.1 MG TAB AM AND 0.2 MG TAB IN THE EVENING Rx Instructions: 0.1 MG IN AM AND 0.2 MG TAB IN THE EVENING cholecalciferol (vitamin D3) 50 mcg (2,000 unit) capsule 50 mcg PO QDAY citalopram 20 mg tablet 20 mg PO DAILY levothyroxine 88 mcg tablet 88 mcg PO DAILY lisinopril 10 mg tablet 10 mg PO DAILY Qty: 90 2RF Patient Comments: takes for BP Discontinued ibuprofen 600 mg tablet 600 mg PO TID PRN (Reason: pain) Qty: 30 0RF Rx Instructions: take with food naproxen 500 mg tablet 500 mg PO DAILY baclofen 5 mg tablet 5 mg PO BID hydrocodone-acetaminophen 5-325 mg tablet 1 tab PO DAILY Referrals / Follow Up: Silverio Sandoval Chi, MD [Primary Care Provider, Geriatrics] Disposition Disposition (needs filled in before D/C Order can be placed): Home, Self Care
--- NOTE | 2025-05-15 14:01 | PN.ORTHO_ITS ---
Subjective Subjective Postop day 1 C3-5 fusion. Patient is doing well postoperatively with his pain well-controlled. Patient did have a PNES seizure last night, which was resolved with Ativan. The patient says that he has a history of these related to anxiety, especially anxiety about , and due to the stress of the surgery this was the reason as to why that he had 1. Ativan at home helps to resolve them, the Ativan given here also resolved it. This was only 1 incidence. No noticeable dysphagia. The patient has been up and walking. Patient reports that dressing was changed approximately [address] Woodall. Objective Data Objective Data Vital Signs: Vital Signs Temp Pulse Resp BP Pulse Ox O2 Del Method O2 Flow Rate 98.3 F 86 16 149/81 H 93 Room Air 2 05/15/25 11:36 05/15/25 11:36 05/15/25 11:36 05/15/25 11:36 05/15/25 11:36 05/15/25 11:36 05/15/25 04:15 Oxygen Flow Rate (L/min) 2 Oxygen Delivery Method Room Air Weight: 224 lb 13.944 oz Body Mass Index (BMI) 33.2 Intake & Output: Intake and Output for Last 24 Hours 05/13/25 05/14/25 05/15/25 23:59 23:59 23:59 Intake Total 1110 / 1310 1351.75 / 1351.75 Output Total Balance 1090 / 1290 1351.75 / 1351.75 Lab / Micro Data 05/15/25 06:30 05/15/25 06:30 Labs: Laboratory Results - last 24 hr 05/14/25 23:46: POC Glucose 164 H 05/15/25 06:30: WBC 10.7, RBC 4.90, Hgb 15.0, Hct 44.4, MCV 90.6, MCH 30.6, MCHC 33.8, RDW Std Deviation 45.4 H, RDW Coeff of Nicole 13.6, Plt Count 179, MPV 10.3, Immature Gran % (Auto) 0.700, Neut % (Auto) 86.9 H, Lymph % (Auto) 7.9 L, [place] % (Auto) 4.4, Eos % (Auto) 0.0, Baso % (Auto) 0.1, Absolute Neuts (auto) 9.3 H, Absolute Lymphs (auto) 0.85, Nucleated RBC % 0, Sodium 137, Potassium 4.5, Chloride 102, Carbon Dioxide 23.8, Anion Gap 11, BUN 19, Creatinine 1.00, Estim Creat Clear Calc 76.29, Est GFR (MDRD) Non-Af 79, BUN/Creatinine Ratio 18.6, G lucose 129 H, Calcium 8.6 Micro: Microbiology 04/30/25 11:47 Swab (Method) Nasal Screen MRSA/MSSA - Final Radiography Diagnostic Testing: Radiology Impression Cervical Spine X-Ray 05/14/25 15:12 IMPRESSION: No intraoperative complications noted during anterior cervical fusion from C3-C5 Disclaimer: Reading Location: [id number] Cervical Spine X-Ray 05/15/25 05:45 IMPRESSION: Hardware in position. Reading Location: [id number] Physical Exam Narrative Neurological examination of the upper extremity shows 5X5 power. Normal sensation across all dermatomes. Drain removed. Tegaderm and gauze applied over the incision. Collar was readjusted. Const alert, oriented x3 and no apparent distress Assessment & Plan Assessment/Plan (1) Status post cervical spinal fusion: PLAN: Plan Postop day 1 C3-5 fusion. Obtained reviewed x-rays today which show hardware and bone graft in good position. PT/OT cleared. Reviewed and educated on the use of the incentive spirometer. Reviewed and educated on restrictions of no bending, lifting, twisting. Reviewed and educated on the proper wear of the cervical collar. Home-going meds include hydrocodone?acetaminophen, meloxicam, methocarbamol, senna. OARRS reviewed. He will follow-up in the clinic in 2 weeks. Sooner if needed for any new or worsening issues. Patient is in agreement to the plan.
--- NOTE | 2025-05-15 15:10 | PHA.DC.COU.R ---
Pharmacy [facility] has performed discharge medication counseling for this patient. The patient was counseled on the following discharge medications and changes in medications for homegoing review. - Meloxicam 15 mg tablet, Methocarbamol 500 mg tablet, Sennosides/docusate 8.6/50 mg tablet, Hydrocodone/acetaminophen 5/325 mg tablet The Reason for Use, instructions for use, and potential side effects were reviewed for all new medications. The patient's questions regarding all of their medications were answered. The patient was able to verbally demonstrate an understanding of their discharge medications.
== END 2025-05-15 15:14 | disposition home or self-care (01) ==
LOC: MS3 17:57 → SDC 17:58 → MS3 17:58
PROVIDERS: Student in an Organized Health Care Education/Training Program; Admitting Provider Orthopaedic Surgery Orthopaedic Surgery of the Spine; PCP Family Medicine Geriatric Medicine; Referring Provider Orthopaedic Surgery Orthopaedic Surgery of the Spine; Visit Provider Orthopaedic Surgery Orthopaedic Surgery of the Spine
PROC: (CPT 22551; principal; 2025-05-14 13:45)
DX: M48.02 Spinal stenosis, cervical region (principal); G99.2 Myelopathy in diseases classified elsewhere; G40.89 Other seizures; M43.12 Spondylolisthesis, cervical region; Z68.34 Body mass index [BMI] 34.0-34.9, adult; I10 Essential (primary) hypertension; F41.9 Anxiety disorder, unspecified; G89.29 Other chronic pain; E66.811 Obesity, class 1; M50.01 Cervical disc disorder with myelopathy, high cervical region; Z79.890 Hormone replacement therapy; M54.12 Radiculopathy, cervical region; Z79.899 Other long term (current) drug therapy; E03.9 Hypothyroidism, unspecified; F40.240 Claustrophobia; F32.A Depression, unspecified; E23.0 Hypopituitarism
CPT/HCPCS: 22551; 22552; 22845; 20931; 00670; 36415; 72040; 76000; 80048; 80164; 82962; 83036; 83735; 85025; 85730; 86850; 86900; 86901; 87081; 94668; 96365; 96366; 96375; 96376; 97162; 97165; 99221; C1713; A4216; G0378; J2405

== ENCOUNTER → 2025-06-23 | Outpatient (CLI) | payer MEDICARE, SELFPAY ==
[2025-06-23 09:40] LABS: Hematocrit 49.6 % (40-54); Hemoglobin 16.5 g/dL (13.0-16.5); Immature Granulocytes Count 0.020 X10^3/uL (0.0-0.0); Mean Corp Hgb Conc 33.3 g/dL (32-36); Mean Corpuscular Volume 90.2 fL (80-94); Mean Platelet Vol. 11.0 fl (6.2-12.0); NRBC Flagged by Analyzer 0 % (0-5); Platelet Count 210 K/mm3 (150-450); RBC Distribution Width CV 12.3 % (11.6-14.6); RBC Distribution Width SD 40.6 fl (35.1-43.9); Red Blood Count 5.50 M/mm3 (4.6-6.2); White Blood Count 6.0 K/mm3 (4.4-11.0)
[2025-06-23 10:14] LABS: AST(SGOT) 24 U/L (<=37); Alanine Aminotransfer ALT/SGPT 33 U/L (<=46); Albumin, Serum 4.6 g/dL (3.4-4.8); Alkaline Phosphatase 47 U/L (40-129); Anion Gap 11 (7-18); BUN 17 mg/dL (4-19); BUN/Creat Ratio 19.9 RATIO (10-20); Calcium,Total 9.6 mg/dL (7.6-11.0); Carbon Dioxide 23.5 mmol/L (20.0-29.0); Chloride 106 mmol/L (96-106); Globulin 2.5 g/dL (2.2-4.2); Glucose 106 mg/dL (70-99); Potassium 4.0 mmol/L (3.5-5.1); Vitamin D,25 Hydroxy 26.4 ng/mL (30-100)
[2025-06-23 17:00] LABS: Xtra Tube Kwok EXTRA TUBE
== END | disposition home or self-care (01) ==
LOC: POLAB3 09:25
PROVIDERS: PCP Family Medicine Geriatric Medicine; Visit Provider Family Medicine Geriatric Medicine
DX: I10 Essential (primary) hypertension (principal); E55.9 Vitamin D deficiency, unspecified; E03.9 Hypothyroidism, unspecified
CPT/HCPCS: 36415; 80053; 82306; 84443; 85025